=== PATIENT | female | born 1965 | race Caucasian/White ===

== ENCOUNTER 2019-12-13 10:00 | Outpatient (CLI) | payer MEDICARE, SELFPAY ==
--- NOTE | ~2019-12-13 | XR_ITS ---
XR knee RT 3V, XR knee LT 3V 12/13/2019 10:32 Indication: Knee pain Procedure: 3 views each knee Comparison: 04/09/2011 Findings: Mild osteoarthritis of the medial compartment bilaterally. No fracture, subluxation or disl ocation. No significant joint effusion. No radiopaque foreign bodies. Impression: 1: Mild osteoarthritis medial compartment bilaterally. Reviewed, dictated and finalized at location A. Impression: 1: Mild osteoarthritis medial compartment bilaterally. Impression: 1: Mild osteoarthritis medial compartment bilaterally.
== END 2019-12-13 10:01 | disposition home or self-care (01) ==
LOC: ANHIMG 10:09
PROVIDERS: PCP Internal Medicine; Visit Provider Internal Medicine
DX: M25.569 Pain in unspecified knee (principal); M17.0 Bilateral primary osteoarthritis of knee
CPT/HCPCS: 73562

== ENCOUNTER 2020-03-09 09:32 | Outpatient (CLI) | payer MEDICARE, SELFPAY ==
--- NOTE | ~2020-03-09 | MR_ITS ---
EXAMINATION: MR knee RT wo con DATE: 03/09/2020 11:13 INDICATION: Right knee pain and swelling TECHNIQUE: Magnetic resonance imaging (MRI) of the right knee was performed without intravenous contr ast. Sequences included coronal PD-weighted FSE, coronal PD-weighted FS FSE, sagittal T2-weighted FS E, sagittal PD-weighted FS FSE and axial PD weighted fat saturated FSE. COMPARISON: Right knee radiographs dated 12/13/2019 FINDINGS: Medial compartment: Medial extrusion of the medial meniscal body. Complex tear with oblique configuration all 3 planes ex tending from the inner free edge to the periphery of the posterior horn. There is partial thickness c artilage loss with relatively smooth chondral surface along much of the medial half of the medial tib ial plateau with prominent subarticular edema along the medial rim. Partial-thickness cartilage loss with chondral surface irregularity at the medial head of the anterior weightbearing medial femoral co ndyle. More severe cartilage loss in places reaching full/near full-thickness at the central to poste rior weightbearing medial femoral condyle with underlying irregular cortical contour and scattered jara barticular edema. Lateral compartment: Lateral meniscus is normal. Small region of partial-thickness chondral ulceration at the posterior we ightbearing lateral femoral condyle. Patellofemoral compartment: Deep chondral fissure along the medial side of the lateral patellar facet. Ligaments and tendons: Anterior and posterior cruciate ligaments are normal. The medial collateral ligament and fibular cecil ateral ligament complex are normal. The extensor mechanism is normal. The visualized medial and later al hamstring tendons as well as the iliotibial band are normal. Fluid: Small knee joint effusion. No loose osteochondral bodies identified. Moderate-sized Mathis's cyst jadon uring 4.0 x 2.2 x 1.4 cm. 7 mm ganglion cyst extending along the proximal myotendinous junction of th e lateral head of the gastrocnemius. Osseous/other: Bone alignment is normal. No fracture or pathologic marrow replacing process. IMPRESSION: 1. Complex tear of the posterior horn of the medial meniscus. 2. Tricompartmental osteoarthritis mild to moderate severity with high-grade chondromalacia in the me dial compartment and mild with moderate grade chondromalacia in the lateral and patellofemoral compar tments. 3. Likely reactive small knee joint effusion with moderate-sized Mathis's cyst an additional small dandy glion cyst at the proximal lateral head of the gastrocnemius. Reviewed, dictated and finalized at location A. IMPRESSION: 1. Complex tear of the posterior horn of the medial meniscus. 2. Tricompartmental osteoarthritis mild to moderate severity with high-grade ch ondromalacia in the medial compartment and mild with moderate grade chondromala mark in the lateral and patellofemoral compartments. 3. Likely reactive small knee joint effusion with moderate-sized Mathis's cyst a n additional small ganglion cyst at the proximal lateral head of the gastrocnem ius.
--- NOTE | ~2020-03-09 | MR_ITS ---
EXAMINATION: MR knee LT wo con DATE: 03/09/2020 11:13 INDICATION: Right knee pain TECHNIQUE: Magnetic resonance imaging (MRI) of the right knee was performed without intravenous contr ast. Sequences included coronal PD-weighted FSE, coronal PD-weighted FS FSE, sagittal T2-weighted FS E, sagittal PD-weighted FS FSE and axial PD weighted fat saturated FSE. COMPARISON: Right knee radiographs dated 12/13/2019 FINDINGS: Medial compartment: There is a tear along the free edge and inferior articular surface of small region of the body of the medial meniscus. Morphology is indeterminate, likely complex. Deep chondral ulceration and fissuring along the posterior weightbearing medial femoral condyle with small flat central subchondral osteoph yte and multiple small subarticular cysts. Tiny marginal osteophytes along the weightbearing medial f emoral condyle and medial tibial plateau. Lateral compartment: Complex tear along the inner third of the posterior horn of the lateral meniscus with additional like ly longitudinal horizontal tear extending to the cephalad articular surface along the inner third of the lateral meniscal body. Deep cartilage loss and fissuring with underlying subarticular edema and c ystic change at the central to posterior aspect of the lateral tibial plateau. Partial thickness jorge dral ulceration with mild irregularity to the underlying cortex at the posterior most weightbearing l ateral femoral condyle. Patellofemoral compartment: Cartilage loss along the patellar apical ridge with additional partial thickness cartilage loss and d eep fissuring with subarticular edema on either side at the medial and lateral patellar facets. Chond ral ulceration with more prominent subarticular cystic change at the central aspect of the trochlear groove and with mild subarticular edema at the inferior aspect of the medial trochlea. Ligaments and tendons: Anterior and posterior cruciate ligaments are normal. The medial collateral ligament and fibular cecil ateral ligament complex are normal. The extensor mechanism is normal. The visualized medial and later al hamstring tendons as well as the iliotibial band are normal. Fluid: Physiologic amount of fluid in the joint space. Small loose osteochondral body cephalad component of a small Mathis's cyst. Osseous/other: Bone alignment is normal. No fracture or pathologic marrow replacing process. Edema in the superficia l suprapatellar fat pad consistent with fat pad impingement syndrome. IMPRESSION: 1. Medial and lateral meniscal tears. 2. Mild tricompartmental osteoarthritis with regions of high-grade chondromalacia in all 3 compartmen ts. 3. Edema in the superficial suprapatellar fat pad which can be seen with fat pad impingement syndrome . 4. Small Mathis's cyst. Reviewed, dictated and finalized at location A. IMPRESSION: 1. Medial and lateral meniscal tears. 2. Mild tricompartmental osteoarthritis with regions of high-grade chondromalac ia in all 3 compartments. 3. Edema in the superficial suprapatellar fat pad which can be seen with fat pa d impingement syndrome. 4. Small Mathis's cyst.
== END 2020-03-09 09:33 | disposition home or self-care (01) ==
LOC: ANHIMG 09:33
PROVIDERS: PCP Internal Medicine; Visit Provider Internal Medicine
DX: M25.561 Pain in right knee (principal); M25.562 Pain in left knee; S83.281A Other tear of lateral meniscus, current injury, right knee, initial encounter; S83.241A Other tear of medial meniscus, current injury, right knee, initial encounter; M79.89 Other specified soft tissue disorders; M71.21 Synovial cyst of popliteal space [Baker], right knee; M25.461 Effusion, right knee
CPT/HCPCS: 73721

== ENCOUNTER 2020-06-04 09:01 | Outpatient (NON) | payer MEDICARE, SELFPAY ==
[2020-06-04 20:27] LABS: SARS-CoV-2 RNA PCR Negative
== END 2020-06-04 09:02 ==
PROVIDERS: PCP Internal Medicine; Visit Provider Internal Medicine
DX: R68.89 Other general symptoms and signs (principal); Z20.828 Contact with and (suspected) exposure to other viral communicable diseases
CPT/HCPCS: 87635; C9803; U0003

== ENCOUNTER 2020-06-06 15:17 | Outpatient (CLI) | payer MEDICARE, SELFPAY ==
--- NOTE | ~2020-06-06 | XR_ITS ---
XR chest 2V DATE: 06/06/2020 15:35 INDICATION: Fever, excessive burping. Acute upper respiratory infection. TECHNIQUE: PA and lateral views COMPARISON: 10/10/2018 2 view chest 10/10/2018 CT pulmonary scan FINDINGS: Moderate bilateral pulmonary hyperinflation. No pulmonary infiltrate or consolidation, pleu ral effusion or pulmonary vascular congestion or pneumothorax. Mild bilateral apical scarring is agai n noted. Normal heart size. No hilar or mediastinal enlargement. Moderate osteopenia. Levoscoliosis of the upper thoracic spine and dextroscoliosis of the lower thora cic spine. IMPRESSION: Moderate hyperinflation; no active cardiopulmonary disease or significant change since 10/10/2018 Reviewed, dictated and finalized at location A. IMPRESSION: Moderate hyperinflation; no active cardiopulmonary disease or signi ficant change since 10/10/2018
== END 2020-06-06 15:18 | disposition home or self-care (01) ==
LOC: ANHIMG 15:23
PROVIDERS: PCP Internal Medicine; Visit Provider Internal Medicine
DX: J06.9 Acute upper respiratory infection, unspecified (principal); R91.8 Other nonspecific abnormal finding of lung field
CPT/HCPCS: 71046

== ENCOUNTER → 2020-12-31 10:15 | Outpatient (CLI) | payer MEDICARE, SELFPAY ==
[2020-12-31 20:13] LABS: SARS-CoV-2 RNA PCR Positive
== END ==
PROVIDERS: PCP Internal Medicine; Visit Provider Internal Medicine
DX: U07.1 COVID-19 (principal); R68.89 Other general symptoms and signs
CPT/HCPCS: C9803; U0003; U0005

== ENCOUNTER 2021-01-07 11:34 | Outpatient (CLI) | payer MEDICARE, SELFPAY ==
--- NOTE | ~2021-01-07 | XR_ITS ---
EXAMINATION: XR chest 2V DATE: 01/07/2021 12:00 INDICATION: COVID-19 pneumonia. TECHNIQUE: Frontal and lateral views of the chest were obtained. COMPARISON: Chest 2 views 06/06/2020 FINDINGS: There is mild scarring at the lung apices. No pleural effusion or pneumothorax. The heart s ize is normal. IMPRESSION: 1. Stable mild scarring at the lung apices. Reviewed, dictated and finalized at location A.
== END 2021-01-07 11:35 | disposition home or self-care (01) ==
PROVIDERS: PCP Internal Medicine; Visit Provider Internal Medicine
DX: U07.1 COVID-19 (principal)
CPT/HCPCS: 71046

== ENCOUNTER 2021-03-02 11:51 | Outpatient (CLI) | payer MEDICARE, SELFPAY ==
--- NOTE | ~2021-03-02 | MR_ITS ---
EXAMINATION: MR lumbar spine wo con DATE: 03/02/2021 12:41 INDICATION: Lumbar radiculopathy. TECHNIQUE: Magnetic resonance imaging (MRI) of the lumbar spine was performed without intravenous con trast. Sequences included sagittal T2-weighted FSE, sagittal T2-weighted FS FSE, sagittal T1-weighted FSE, and axial T2-weighted FSE. COMPARISON: Lumbar spine MRI 12/23/2010 FINDINGS: Bone alignment is normal. Vertebral body heights and intervertebral disc heights are normal . The distal spinal cord signal intensity is normal. The conus medullaris is at L1-L2. The following disc levels are specifically discussed: L1-L2: The disc does not extend beyond the endplate margin. There is mild bilateral facet joint osteo arthritis. There is no neural foraminal stenosis. There is no central canal stenosis. L2-L3: The disc does not extend beyond the endplate margin. There is mild bilateral facet joint osteo arthritis. There is no neural foraminal stenosis. There is no central canal stenosis. L3-L4: The disc does not extend beyond the endplate margin. There is mild bilateral facet joint osteo arthritis. There is no neural foraminal stenosis. There is no central canal stenosis. L4-L5: The disc is bulging and has an annular fissure. There is mild lateral facet joint osteoarthrit is. There is mild bilateral neural foraminal stenosis. There is mild central canal stenosis. L5-S1: The disc does not extend beyond the endplate margin. There is mild bilateral facet joint osteo arthritis. There is no neural foraminal stenosis. There is no central canal stenosis. IMPRESSION: 1. Mild lumbar spondylosis, stable from 12/23/2010. Reviewed, dictated and finalized at location A.
== END 2021-03-02 11:52 | disposition home or self-care (01) ==
PROVIDERS: PCP Internal Medicine; Visit Provider Nurse Practitioner Family
DX: M54.16 Radiculopathy, lumbar region (principal); M47.816 Spondylosis without myelopathy or radiculopathy, lumbar region
CPT/HCPCS: 72148

== ENCOUNTER 2021-08-15 08:08 | Outpatient (CLI) | payer MEDICARE, SELFPAY ==
--- NOTE | ~2021-08-15 | MM_ITS ---
EXAMINATION: MM screening [facility] BI w irais HISTORY: Screening mammogram TECHNIQUE: Craniocaudal and mediolateral oblique 3-D tomosynthesis images were obtained and synthetic 2-D images were generated. Bilateral rotated lateral cc views. CAD analysis was submitted and interp reted. COMPARISON: 02/05/2016 bilateral screening mammogram BREAST PARENCHYMAL COMPOSITION: The breasts are heterogeneously dense, which may obscure small masses . FINDINGS: There is no evidence of suspicious mass, calcification, or architectural distortion to sugg est malignancy in either breast. There has been no suspicious interval change. IMPRESSION: 1. No mammographic evidence of malignancy. 2. Recommend routine screening mammography in one year. BI-RADS Category 1: Negative Reviewed, dictated and finalized at location A. [employer]ISH[employer]
== END 2021-08-15 08:09 | disposition home or self-care (01) ==
LOC: ANHIMG 08:11
PROVIDERS: PCP Internal Medicine; Visit Provider Obstetrics & Gynecology
DX: Z12.31 Encounter for screening mammogram for malignant neoplasm of breast (principal)
CPT/HCPCS: 77063; 77067

== ENCOUNTER 2022-02-25 10:07 | Outpatient (CLI) | payer MEDICARE, SELFPAY ==
--- NOTE | 2022-03-10 15:31 | WPDHOMESLEEP ---
Sleep Study - Home Unattended Date of Study: 02/25/22 Ordering Provider: Van Gonzales DO Interpreting Provider: Katarina Salinas DO Home Sleep Study Type: Apnea Link Air Height: 1.73 m Weight: 70.307 kg Body Mass Index: 23.6 Neck Circumference (inches): 17 [place]: 6 Reason for Sleep Study Unrefreshing sleep, daytime hypersomnia Sleep History The patient is a 56-year-old female with hyperlipidemia, coronary artery disease w/ stent, history of myocardial infarction, osteoporosis, chronic pain, seasonal allergies and history of tobacco abuse that had a sleep study ordered for evaluation of sleep apnea. The patient is currently disabled. She occasionally awakens from sleep short of breath. She occasionally awakens at night with heartburn, belching or cough. She constantly snores loud enough that others complain. She constantly has trouble sleeping when she has a cold. She denies waking up gasping for air throughout the night. She denies having breathing problems at night observed by herself or others. She occasionally sweats excessively at night. Rarely has heart palpitations or irregular heartbeats during the night. He occasionally falls asleep during the day but never while driving. She denies sleep paralysis and cataplexy. She rarely experiences vivid dreamlike scenes upon awakening or falling asleep. She occasionally has nightmares. She rarely remembers her dreams. She frequently has thoughts racing through her mind. She occasionally feels sad or depressed. She frequently has anxiety. She occasionally has muscular tension and occasionally notices parts of her body jerk. She occasionally kicks during the night. She frequently experiences crawling and aching feelings in her legs and frequent slightly has leg pain during the night. She rarely grinds her teeth during sleep but never awakens with morning jaw pain. She is constantly bothered by pain during the day and frequently awakened by pain during the night. He frequently wakes up feeling stiff in the morning. She frequently or achy muscles. She frequently wakes up with pain in the neck, spine or other joints. She goes to bed between 830 and 9:00 p.m. on weekdays and at 10:00 p.m. on weekends. It takes her 20 30 minutes to fall asleep at night. She wakes up twice throughout the night to use the restroom. He can take her up to 30 minutes to fall asleep. She wakes up between 6 and a.m. on both weekdays and weekends. She typically gets 4-6 hours of sleep per night. She will stay in bed for 1 hour after waking up in the morning. She currently lives with her . She does not consume any caffeinated beverages within 2 hours of bedtime. She does not engage in physical exercise before bedtime. She will watch television before falling asleep. She will occasionally take naps in the afternoon or the evening. She will drink 2 cups of caffeinated beverage per day. She will occasionally drink beer. She quit smoking cigarettes 10 years ago. She denies recreational drug use. [facility] Past Medical History Medical History Anxiety Arthritis Bilateral knee pain Coronary artery disease involving [place] coronary artery of [place] heart Degenerative arthritis of knee, bilateral Degenerative joint disease of knee Fatigue High cholesterol Hx of myocardial infarction Hypersomnolence Lateral meniscus tear Medial meniscus tear On fdc drug therapy Osteoporosis Other and unspecified hyperlipidemia Right knee DJD Right knee pain Seasonal allergies Vision abnormalities Weight gain Surgical History Surgical History H/O removal of cyst History of foot surgery bone spur History of heart artery stent Family History Family History Mother No problems noted. Sibling N
[2022-03-10 15:39] VITALS: BMI 23.6
== END 2022-02-26 12:54 | disposition home or self-care (01) ==
LOC: ANHCSM 10:08
PROVIDERS: PCP Internal Medicine; Visit Provider Internal Medicine
DX: G47.10 Hypersomnia, unspecified (principal); G47.33 Obstructive sleep apnea (adult) (pediatric)
CPT/HCPCS: 95806

== ENCOUNTER 2022-03-25 07:28 | Outpatient (CLI) | payer MEDICARE, SELFPAY ==
--- NOTE | 2022-04-18 17:20 | WPDSLEEPSTUD ---
Sleep Study Date of Study: 03/25/22 Ordering Provider: Van Gonzales DO Interpreting Physician: Katarina Salinas DO Sleep Study Type: CPAP Titration Height: 1.7 m Weight: 70.307 kg Body Mass Index: 24.3 Neck Circumference (inches): 17 [place]: 6 Reason for Sleep Study The patient had an HSAT on 02/25/2022 that showed an overall AHI of 31.9 with desaturation down to 84%.? This is consistent with?severe sleep apnea.??The patient had a KALPANA (central apnea index) of 11.9, with normal being less than 5. Sleep History The patient is a 56-year-old female with hyperlipidemia, coronary artery disease w/ stent, history of myocardial infarction, osteoporosis, chronic pain, seasonal allergies and history of tobacco abuse that had a sleep study ordered for evaluation of sleep apnea.? The patient is currently disabled.? She occasionally awakens from sleep short of breath.? She occasionally awakens at night with heartburn, belching or cough.? She constantly snores loud enough that others complain.? She constantly has trouble sleeping when she has a cold.? She denies waking up gasping for air throughout the night.? She denies having breathing problems at night observed by herself or others.? She occasionally sweats excessively at night.? Rarely has heart palpitations or irregular heartbeats during the night.? He occasionally falls asleep during the day but never while driving.? She denies sleep paralysis and cataplexy.? She rarely experiences vivid dreamlike scenes upon awakening or falling asleep.? She occasionally has nightmares.? She rarely remembers her dreams.? She frequently has thoughts racing through her mind.? She occasionally feels sad or depressed.? She frequently has anxiety.? She occasionally has muscular tension and occasionally notices parts of her body jerk.? She occasionally kicks during the night.? She frequently experiences crawling and aching feelings in her legs and frequent slightly has leg pain during the night.? She rarely grinds her teeth during sleep but never awakens with morning jaw pain.? She is constantly bothered by pain during the day and frequently awakened by pain during the night.? He frequently wakes up feeling stiff in the morning.? She frequently or achy muscles.? She frequently wakes up with pain in the neck, spine or other joints.? She goes to bed between 830 and 9:00 p.m. on weekdays and at 10:00 p.m. on weekends.? It takes her 20 30 minutes to fall asleep at night.? She wakes up twice throughout the night to use the restroom.? He can take her up to 30 minutes to fall asleep.? She wakes up between 6 and a.m. on both weekdays and weekends.? She typically gets 4-6 hours of sleep per night.? She will stay in bed for 1 hour after waking up in the morning.? She currently lives with her .? She does not consume any caffeinated beverages within 2 hours of bedtime.? She does not engage in physical exercise before bedtime.? She will watch television before falling asleep.? She will occasionally take naps in the afternoon or the evening.? She will drink 2 cups of caffeinated beverage per day.? She will occasionally drink beer.? She quit smoking cigarettes 10 years ago.? She denies recreational drug use. 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
[2022-04-18 23:06] VITALS: BMI 24.3
--- NOTE | 2022-08-01 12:22 | SLEEP ---
pt stated she had watched a youtube video on how to turn her machine up to 12cm I explained to her that it could increase the number of central events she could experience nightly. I also advised pt that she should return machine to md settings.
== END 2022-03-26 06:00 | disposition home or self-care (01) ==
LOC: ANHCSM 07:35
PROVIDERS: PCP Internal Medicine; Visit Provider Internal Medicine
DX: G47.30 Sleep apnea, unspecified (principal)
CPT/HCPCS: 95811

== ENCOUNTER 2022-04-10 13:25 | Outpatient (CLI) | payer MEDICARE, SELFPAY ==
--- NOTE | 2022-04-10 13:48 | ECHO_ITS ---
Patient Info Name: Lisbet Alejandro Age: 56 years : 1965 Gender: Female Ht: 68 in Wt: 190 lbs BSA: 2.05 m2 HR: 97 bpm BP: 179 / 88 mmHg Heart Rhythm: Sinus Rhythm Technical Quality: Fair Exam Date: 04/10/2022 2:07 PM Exam Location: [facility] Patient Status: Outpatient Admit Date: 04/10/2022 Staff Ordering Physician: Van Gonzales DO Clerical Methods Analyst: Adrianne Solitario RDCS Attending Provider: Van Gonzales DO Referring Physician: Janet ROUSSEAU; Exam Type: CA echo doppler color flow Study Info Indications G47.39 - OTHER SLEEP APNEA Complete two-dimensional, color flow and Doppler transthoracic echocardiogram is performed. Summary 1. Complete two-dimensional, color flow and Doppler transthoracic echocardiogram is performed. 2. Normal Echocardiogram. Left Ventricle Left ventricular chamber dimension is normal. Left ventricular systolic function is normal, estimated at 60-65%. The left ventricular diastolic function is normal. Right Ventricle Right ventricular chamber dimension is normal. Left Atria Left atrial chamber dimension is normal. Right Atria Right atrial chamber dimension is normal. Aortic Valve The aortic valve is normal. Pulmonic Valve The pulmonic valve is normal. Mitral Valve The mitral valve has normal leaflets. Tricuspid Valve The tricuspid valve leaflets are normal. Pericardium/Pleural The pericardium appears normal. Aorta The aortic root size at the sinus of Valsalva is normal. Left Ventricular Outflow Tract Name Value Normal LVOT 2D LVOT Diameter 2.0 cm LVOT Doppler LVOT Peak Gradient 4 mmHg LVOT Mean Gradient 2 mmHg LVOT VTI 24 cm LVOT VTI/AV VTI Ratio 0.9 LVOT Stroke Volume 73 ml LVOT CO 5.3 l/min LVOT CI 2.6 l/min/m2 Pulmonic Valve Name Value Normal RVOT Doppler RVOT Peak Gradient 3 mmHg PV Doppler PV Peak Gradient 4 mmHg Mitral Valve Name Value Normal MV Doppler MV Decel [place] 479 cm/s2 MV PHT 57 ms MV Area (PHT) 3.9 cm2 4.0-5.0 MV Diastolic Function MV E Peak Velocity 94 cm/s MV A Peak Velocity
== END 2022-04-10 13:26 | disposition home or self-care (01) ==
LOC: ANHCARD 13:37
PROVIDERS: PCP Internal Medicine; Visit Provider Internal Medicine
DX: G47.39 Other sleep apnea (principal); Z79.899 Other long term (current) drug therapy
CPT/HCPCS: 93306

== ENCOUNTER → 2023-01-22 11:21 | Outpatient (CLI) | payer MEDICARE, SELFPAY ==
--- NOTE | ~2023-01-22 | MM_ITS ---
EXAMINATION: MM screening [facility] BI w irais HISTORY: Screening mammogram TECHNIQUE: Craniocaudal and mediolateral oblique 3-D tomosynthesis images were obtained and synthetic 2-D images were generated. CAD analysis was submitted and interpreted. COMPARISON: 08/15/2021, 02/05/2016 BREAST PARENCHYMAL COMPOSITION: The breasts are heterogeneously dense, which may obscure small masses . FINDINGS: No suspicious mass, calcification, or architectural distortion are identified in either sina ast to suggest malignancy. There has been no suspicious interval change. IMPRESSION: 1. No mammographic evidence of malignancy. 2. Recommend routine screening mammography in one year. BI-RADS Category 1: Negative Reviewed, dictated and finalized at location A.
== END ==
PROVIDERS: PCP Internal Medicine; Visit Provider Obstetrics & Gynecology
DX: Z12.31 Encounter for screening mammogram for malignant neoplasm of breast (principal)
CPT/HCPCS: 77063; 77067

== ENCOUNTER 2024-02-12 09:53 | Outpatient (CLI) | payer MEDICARE, SELFPAY ==
--- NOTE | ~2024-02-12 | MM_ITS ---
EXAMINATION: MM screening [facility]ho[facility] BI w irais HISTORY: Screening mammogram TECHNIQUE: Craniocaudal and mediolateral oblique 3-D tomosynthesis images were obtained and synthetic 2-D images were generated. CAD analysis was submitted and interpreted. COMPARISON: January 22, 2023, August 15, 2021 bilateral screening mammogram examinations BREAST PARENCHYMAL COMPOSITION: The breasts are heterogeneously dense, which may obscure small masses . FINDINGS: There is no evidence of suspicious mass, calcification, or architectural distortion to sugg est malignancy in either breast. There has been no suspicious interval change. IMPRESSION: 1. No mammographic evidence of malignancy. 2. Recommend routine screening mammography in one year. BI-RADS Category 1: Negative Reviewed, dictated and finalized at location B.
== END 2024-02-12 09:54 ==
PROVIDERS: PCP Family Medicine; Visit Provider Family Medicine
DX: Z12.31 Encounter for screening mammogram for malignant neoplasm of breast (principal)
CPT/HCPCS: 77063; 77067

== ENCOUNTER 2024-06-03 10:10 | Outpatient (CLI) | payer MEDICARE, SELFPAY ==
--- NOTE | ~2024-06-03 | CT_ITS ---
CT Scan of the Chest without Contrast: Clinical Indication: Lung cancer screening, nicotine dependence Technique: Contiguous sections were acquired throughout the chest without intravenous contrast. Dose reduction technique was used on this scan by utilizing automated exposure control and iterative recon struction technique. The dose-length product (DLP) was 139.56 mGy-cm. Findings: There is no evidence of any significant mediastinal, hilar or axillary lymphadenopathy. There are ath erosclerotic ossifications of the aorta and coronary arteries. There is no evidence of pleural or pericardial effusion. The lungs are clear. No pulmonary nodules or infiltrates are noted. There is minimal biapical scarrin g. Images through the upper abdomen reveal no abnormalities. Impression: Lung RADS 1: Negative. 12 month follow-up screening CT advised. Reviewed, dictated and finalized at [facility]. Impression: Lung RADS 1: Negative. 12 month follow-up screening CT advised.
== END 2024-06-03 10:11 | disposition home or self-care (01) ==
PROVIDERS: PCP Family Medicine; Visit Provider Family Medicine
DX: Z12.2 Encounter for screening for malignant neoplasm of respiratory organs (principal); Z87.891 Personal history of nicotine dependence
CPT/HCPCS: 71271

== ENCOUNTER 2024-09-30 00:33 | Day surgery (SDC) | payer MEDICARE, SELFPAY ==
[2024-09-29 10:46] VITALS: BMI 29.7
[2024-09-30] VITALS (14 sets, daily range): BP systolic 122–164; BP diastolic 68–88; PULSE 73–94; RESP 11–20; TEMP 36.7; O2SAT 97–100; BMI 29.0
[2024-09-30 07:37] LABS: Basophils Percent Auto 0.9 % (0.2-1.2); Eosinophils Absolute Auto 0.1 K/mm3 (0-0.3); Eosinophils Percent Auto 1.9 % (0-4.4); Hematocrit 37.3 % (37.0-47.0); Hemoglobin 12.4 g/dL (12.0-15.0); Immature Granulocyte Absolute 0.01 K/mm3 (0.00-0.031); Immature Granulocyte Percent A 0.2 % (0-0.5); Lymphocytes Absolute Auto 1.64 K/mm3 (0.9-3.2); Lymphocytes Percent Auto 35.5 % (18.3-44.2); Mean Corpuscular HGB Conc 33.2 g/dl (32-36); Mean Corpuscular Hemoglobin 30.7 pg (26-34); Mean Corpuscular Volume 92.3 fl (80-100); Mean Platelet Volume 9.1 fl (7.4-10.4); Monocytes Absolute Auto 0.4 K/mm3 (0.1-0.6); Monocytes Percent Auto 7.8 % (2.6-8.5); Neutrophils Absolute Auto 2.5 K/mm3 (1.3-6.7); Neutrophils Percent Auto 53.7 % (45.5-73.1); Platelet Count Result 277 k/mm3 (150-375); Red Blood Count 4.04 M/mm3 (4.2-5.4); Red Cell Distribution Width 12.2 % (11.5-14.5); White Blood Count 4.6 K/mm3 (4.5-10.0)
[2024-09-30 08:11] LABS: Anion Gap 3 mmol/L (4-12); Blood Urea Nitrogen 11 mg/dL (7-17); Calcium 9.6 mg/dL (8.4-10.2); Carbon Dioxide 24 mmol/L (22-30); Chloride 110 mmol/L (98-107); Estimated CRCL calculation 66 ml/min; Estimated Glomerular Filt Rate > 60; Glucose 105 mg/dL (65-110); Potassium 3.9 mmol/L (3.4-5.0); Sodium 137 mmol/L (137-145)
--- NOTE | 2024-09-30 08:23 | P.SEDATION_ITS ---
Moderate Sedation Note-Pt Data Patient Data Allergies Allergy/AdvReac Type Severity Reaction Status Date / Time No Known Drug Allergies Allergy Mild no Verified 09/30/24 07:21 allergies Home Medications ?Medication ?Instructions ?Recorded ?Confirmed ?Type aspirin 81 mg tablet,delayed 81 mg PO DAILY 12/07/19 09/30/24 History release (Adult Low Dose Aspirin) multivitamin 1 tablet PO DAILY 12/07/19 09/29/24 History magnesium 200 mg tablet 200 mg PO DAILY 04/26/24 09/29/24 History pantoprazole 40 mg tablet,delayed See Rx Instructions .Route 05/03/24 09/30/24 Rx release .COMPLEX #180 tabs rosuvastatin 20 mg tablet 20 mg PO DAILY #90 tabs 05/03/24 09/29/24 Rx topiramate 50 mg tablet 50 mg PO DAILY #90 tabs 07/07/24 09/29/24 Rx topiramate 100 mg tablet 100 mg PO DAILY #90 tabs 07/13/24 09/29/24 Rx hydrocodone 5 mg-acetaminophen 325 1 tablet PO Q6H PRN pain #120 tabs 09/15/24 09/30/24 Rx mg tablet ezetimibe 10 mg tablet See Rx Instructions .Route 09/21/24 09/29/24 Rx .COMPLEX #90 tabs omega-3 acid ethyl esters 1 gram See Rx Instructions .Route 09/21/24 09/29/24 Rx capsule .COMPLEX #180 caps vitamin B complex 1 tablet PO DAILY 09/29/24 09/29/24 History Current Medications: Active Medications Sodium Chloride (Normal Saline Iv) 500 mls @ 100 mls/hr IV CONT .Q5H LUIZ Sedation/Anesthesia: No previous sedation/anesthesia problems (including family history). 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 Sibling Neuropathy Other Carcinoma of colon Family history of arthritis Family history of cardiovascular disease Family history of lung cancer Family history of throat cancer Hypertension Social History Social History Smoking packs per day: 1 Smoking cigarettes per day: 20.0 Years smoked: 8 Smoking pack-years: 8.00 Smoking status: Former smoker Tobacco type: cigarettes Second hand tobacco smoke exposure: No Smoking end date: 10/05/13 Alcohol intake: current Alcohol use details: occasionally 1-2 beer a few times/year Substance use: never Substance use type: does not use Last use: 10/05/2013 Do You Feel Safe in your Home?: Yes Lack of Transportation: No Lack of Food: Never True Current Housing: I Have Housing Concerned About Future Housing: No Difficulty Paying Gas/Electric Bills: No Currently Unemployed: No Education: Associate Degree Difficulty w/ Childcare or Family Care: No Living arrangements: with family Occupation/Education: unemployed Additional occupation/education comments: disabled Gender identity (if verbalized by the patient): Female Spiritual care concerns: No Mod Sed Physical Exam Physical Exam Pre Procedural Exam: Normal: Heart Rate and Heart Rhythm Hours since solid foods: 12 Hours since liquid intake: 12 Mallampati Classification: class II Internal Medicine - PN: Obj Da Vital Signs Vital Signs: Vital Signs - 24 hr 09/30/24 07:27 Temperature 36.7 C Pulse Rate 94 Respiratory Rate 16 Blood Pressure 154/77 H Pulse Oximetry 97 Oxygen Delivery Room Air Meds/Results Medications: Active Medications Generic Name Dose Route Start Last Admin Trade Name Freq PRN Reason Stop Dose Admin Sodium Chloride 500 mls @ 100 mls/hr 09/30/24 07:00 Normal Saline Iv IV CONT .Q5H LUIZ Labs 09/30/24 07:33 09/30/24 07:50 Labs: Laboratory Results - last 24 hr 09/30/24 09/30/24 07:33 07:50 WBC 4.6 RBC 4.04 L Hgb 12.4 Hct 37.3 MCV 92.3 MCH 30.7 MCHC 33.2 RDW 12.2 Plt Count 277 MPV 9.1 Immature Gran % (Auto) 0.2 Neut % (Auto) 53.7 Lymph % (Auto) 35.5 [place] % (Auto) 7.8 Eos % (Auto) 1.9 Baso % (Auto) 0.9 Lymph # (Auto) 1.64 [place] # (Auto) 0.4 Eos # (Auto) 0.1 Baso # (Auto) 0.0 Abs Immat Gran (auto) 0.01 Absolute Neuts (auto) 2.5 Absolute Nucleated RBC 0.000 Nucleated RBC % 0.0 Sodium 137 Potassium 3.9 Chloride 110 H Carbon Dioxide 24 Anion Gap 3 L BUN 11 Creatinine 0.90 Estim Creat Clear Calc 66 Estimated GFR > 60 Glucose 105 Calcium 9.6 ASA Classification/Sedation ASA Classification/Sedation ASA Class: III Emergent: No Risks: Risks, benefits and alternatives explained and patient/family accepted plan for sedation. Patient re-evaluated immediately prior to sedation.
--- NOTE | 2024-09-30 08:23 | WPDHPUPDATE1 ---
History and Physical Update Update Date/Time: 09/30/24 08:23 History and Physical has been reviewed, including an updated exam of the patient. There are NO changes in the patient's condition. Risks, benefits, and alternatives have been discussed and questions answered. Patient agrees to proceed with procedure.
--- NOTE | 2024-09-30 10:47 | P.PCNCC_ITS ---
Cardiac Cath Procedure Note Date of procedure:: 09/30/24 Performing physician:: CATHETERIZATION LABORATORY REPORT Procedure Date: 09/30/2024 Referring Physician: Dr. Reddy Anesthesia: Versed and Fentanyl were ordered and given in my presence at 0840, procedure ended at 0853. Supervision of nurse, Jovi Grey monitored moderate sedation with 2mg Versed and 100mcg Fentanyl was provided for 13 minutes. Pre-op Diagnosis: Angina Post-op Diagnosis: Angina Procedure(s): Left heart catheterization with coronary angiography Access Site: Right radial artery Brief History and Clinical Indications: All risks, benefits and alternatives to left heart catheterization with or without percutaneous coronary intervention was discussed at length with the patient. Risk of complications including but not limited to bleeding, infection, arrhythmia, stroke, worsening kidney function, blood loss, groin hematoma, limb loss, emergency coronary artery bypass grafting, and even were discussed with the patient and all questions were answered. The patient understood and wished to proceed. Time out called, patient name, date of , medical record number, allergies, procedure performed, identify Knot Saw Operator, patient and staff member concurred with accurate data, procedure carried on. Findings: LEFT HEART CATHETERIZATION FINDINGS: 1. Left main: The left main coronary artery is widely patent without any significant obstructive disease. 2. Left anterior descending: The LAD and the diagonal branches have mild luminal irregularities without any significant obstructive angiographic disease. The system also provides [id number]-[id number] collaterals. 3. Left circumflex: The left circumflex artery and the main marginal branches have mild coronary artery disease without any significant obstructive angiographic disease. The system provides qqre-uq-gtqsi collaterals. 4. Right coronary artery: The RCA is a dominant vessel that is occluded at the distal part of a previously placed stent. There was good left to right collaterals. 5. Left ventricle: A. End-diastolic pressure 21 mmHg. B. LV gram deferred. C. No significant gradient across aortic valve on catheter pullback. 6. Opening AO pressure 140/85 and closing AO pressure 139/75 Description of Procedure: Informed consent signed and placed in the chart. Patient transferred to optical lab technician room. Prepped and draped in usual sterile fashion. 2% lidocaine injected subcutaneously in right wrist area. 22-gauge venipuncture catheter used to access the right radial artery with the Seldinger technique. 6-FR slender sheath placed in right radial artery. Nitroglycerin 200mcg, Verapamil 2.5mg, and Heparin 5000U was given intraarterial through the sheath. J wire advanced under fluoroscopy 5F TIG diagnostic catheter engaged Left Main Coronary Artery. 5F TIG diagnostic catheter engaged Right Coronary Artery Multiple orthogonal angiogram obtained and reviewed 5F Pigtail diagnostic catheter crossed aortic valve to obtain LVEDP, LV angiogram deferred. Hemostasis was achieved by application of TR band. 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 Post Operative Condition: Stable No significant blood loss Disposition: Home Plan: Continue aggressive risk factor modification. Continue aggressive medical management. Follow-up with Dr. Barry Muse Interventional Cardiology
--- OUTSIDE RECORDS SUMMARY | 2024-10-07 01:41 | XMS_ITS | Data Portability ---
Author Organization [facility] [place], Main Office Address [address] [place] [address] Care Team Providers Care District Fire Chief Name Role Phone MELISSA BONILLA Primary Care Provider [phone] ANALI ROONEY Referring Provider Assessment Encounter Date Assessment Date Assessment LastModified by Organization Details LastModified Time 10/28/2023 10/28/2023 Impression: Patient has moderately severe medial compartment osteoarthritis the right knee. She is content with periodic cortisone shots which have been helping her. She would like another cortisone shot today. Risk of side effects including risk of infection discussed. After ChloraPrep prep, 20 mg of Kenalog and 4 cc of 0.5% ropivacaine were injected into the right knee without difficulty. She can have another cortisone shot in 3 months if desired. 30 minutes were spent total care this patient more than half the time spent in rcez-to-eflv care. [email or web address] Not available 11/01/2023 16:03:59 Plan of Treatment Reminders Order Date Submit Date Provider Last Modified By Organization Details Last Modified Time Details Appointments None recorded. Lab None recorded. Referral None recorded. Procedures injection/a spiration joint/bursa (PROC) - in office procedure, administere d by provider 2023 024 [email or web address] In-Office Order, Internal Use Only DO Not Attach Compendium DO Not Attach Compendium, Do Not Delete/merge, [id number] 09:35:40 Surgeries None recorded. Imaging None recorded. Medication Orders Kenalog 10 mg/mL suspension for injection 2023 024 [email or web address] [facility] [address] [facility], [place], [address], 16:34:01 ropivacaine (PF) 5 mg/mL (0.5 %) injection solution 2023 024 [email or web address] [facility] [address] [facility], [place], [address], 4 16:34:01 Patient TargetsNo targets recorded. Patient InstructionsNo instructions recorded. Reason for Referral None Reported. Results Created Date Observation Date Name Description Value Unit Range Abnormal Flag Note LastModifiedBy Organization Detail LastModifiedTime 02/18/20 22 XR, foot, 3 or more view No observ ation record ed. [id number] [facility] [place] [address] [place] [address], [phone], 12/04/2022 01:01:20 02/18/20 22 02/17/2022 XR, foot, 3 or more view No observ ation record ed. [id number] [facility] [place] [address] [place] [address], [phone], 12/04/2022 01:01:20 Result Notes None recorded. Problems Name Problem SNOMED Code Status Onset Date Resolution Date Notes Provider Name and Address Organization Details Recorded Time Bilateral plantar fasciitis 4130099964663 9108 Active 2021 Not Available [facility] 3 01:00:06 Pain of right knee joint 4474315393971 00 Active 2023 Tisha Wetzel CMA [facility], [facility] [employer] [facility] 4 09:33:53 Problem Notes None recorded. Procedures Surgical History Date Name Laterality Status Provider Name and Address Organization Details Recorded Time 4 Stent completed Tisha Wetzel CMA [facility] 10/28/2023 10:34:05 Foot Surgery completed Not Available [facility] 12/04/2022 00:59:11 Imaging Results Imaging Date Name Status LastModified by Organiz ation Details LastModified Time 02/17/2022 XR, foot, 3 or more view completed [id number] [facility] [place] [address] [place], [address], 12/04/2022 01:01:20 02/17/2022 XR, foot, 3 or more view completed [id number] [facility] [place] [address] [place], [address], 12/04/2022 01:01:20 Procedure Notes None recorded. Medical Equipment None Reported. Medications Name Sig Start Date Stop Date Status Note LastModified by Organization Details LastModified Time neomycin-po lymyxin-hyd rocort 3.5 mg/mL-10,00 0 unit/mL-1 % ear solution INSTILL 4 DROPS INTO EACH EAR EVERY 8 HOURS FOR 10 DAYS active Not Available Not Available No t Available hydrocodone 5 mg-acetamin ophen 325 mg tablet TAKE 1 TABLET BY MOUTH EVERY 6 HOURS NEEDED FOR PAIN active Not Available Not Available No t Available fluticasone propionate 0.05 % topical cream active Not Available Not Available Not Available meloxicam 15 mg tablet TAKE 1 TABLET BY MOUTH DAILY active Not Available Not Available No t Available prednisone 20 mg tablet TAKE 1 TABLET BY MOUTH ONCE DAILY active Not Available Not Available No t Available alprazolam 0.25 mg tablet TAKE ONE TABLET BY MOUTH ONE HOUR BEFORE MRI ONE HALF HOUR BEFORE MRI AND RIGHT BEFORE MRI (IF NEEDED) 10/28 completed Not Available Not Available Not Available oxycodone-a cetaminophe n 10 mg-325 mg tablet TAKE 1 TABLET BY MOUTH EVERY 6 HOURS NEEDED FOR PAIN active Not Available Not Available No t Available Kenalog 10 mg/mL suspension for injection in office procedure , administe red by provider 2023 active [facility]: 0003- [phone]- 20 Not Available Not Available Not Available pantoprazol e 40 mg tablet,eleanor yed release TAKE 1 TABLET BY MOUTH EVERY MORNING active Not Available Not Available No t Available gabapentin 300 mg capsule TAKE 1 CAPSULE BY MOUTH EVERY DAY AT BEDTIME active Not Available Not Available No t Available morphine ER 15 mg tablet,exte nded release TAKE 1 TABLET BY MOUTH EVERY 12 HOURS active Not Available Not Available No t Available gabapentin 100 mg capsule TAKE 1 CAPSULE BY MOUTH EVERY DAY AT BEDTIME active Not Available Not Available No t Available fluticasone propionate 50 mcg/actuati on nasal spray,suspe nsion USE 2 SPRAY(S) IN EACH NOSTRIL ONCE DAILY active Not Available Not Available No t Available doxycycline hyclate 100 mg tablet TAKE 1 TABLET BY MOUTH TWICE DAILY FOR 10 DAYS 10/28 completed Not Available Not Available Not Available amoxicillin 875 mg-potassiu m clavulanate 125 mg tablet TAKE 1 TABLET BY MOUTH TWICE DAILY 10/28 completed Not Available Not Available Not Available ezetimibe 10 mg tablet TAKE 1 TABLET BY MOUTH DAILY active Not Available Not Available No t Available rosuvastati n 20 mg tablet TAKE 1 TABLET BY MOUTH DAILY active Not Available Not Available No t Available rosuvastati n 40 mg tablet TAKE ONE-HALF TABLET BY MOUTH ONCE DAILY. active Not Available Not Available No t Available omega-3 acid ethyl esters 1 gram capsule TAKE 1 CAPSULE BY MOUTH TWICE DAILY active Not Available Not Available No t Available aspirin 2021 active Not Available Not Available Not Avai lable B Complex 10/28 completed Not Available Not Available Not Available Percocet 2021 active Not Available Not Available Not Avai lable multivitami n 2021 active Not Available Not Available Not Avai lable Advair HFA 230 mcg-21 mcg/actuati on aerosol inhaler INHALE 2 PUFFS BY MOUTH EVERY 12 HOURS 10/28 completed Not Available Not Available Not Available ropivacaine (PF) 5 mg/mL (0.5 %) injection solution in office procedure , administe red by provider 2023 active [facility] [phone] -[phone] Not Available Not Available Not Available Nucynta ER 50 mg tablet,exte nded release TAKE 1 TABLET BY MOUTH EVERY 12 HOURS active Not Available Not Available No t Available Narcan 4 mg/actuatio n nasal spray USE DIRECTED IN CASE OF OPIOID EMERGENCY active Not Available Not Available No t Available Xtampza ER 9 mg capsule sprinkle TAKE 1 CAPSULE BY MOUTH EVERY 12 HOURS FOR 15 DAYS active Not Available Not Available No t Available Vitals Date Recorded Body mass index (BMI) Body height Heart rate Body weight Systolic blood pressure Diastolic blood pressure Provider Name and Address Organization Details Last Updated DateTime 2 28.9 kg/m2 172.72 cm 94 /min 07796.5 5 g 182 mm[Hg] 117 mm[Hg] Not Available [facility] 00:59:22 Date Recorded Body height Heart rate Systolic blood pressure Diastolic blood pressure Provider Name and Address Organization Details Last Updated DateTime 02/17/2022 172.72 cm 95 /min 179 mm[Hg] 108 mm[Hg] Not Available [facility] 12/04/2022 00:59:22 Date Recorded Body height Body mass index (BMI) Body weight Provider Name and Address Organization Details Last Updated DateTime 10/28/2023 170.18 cm 30.1 kg/m2 78702.74 g Tati Irene Rosalind [facility] 10/28/2023 10:27:10 Social History Question Answer Notes LastModified by [employer] ion Details LastModified Time Tobacco Smoking Status Never Smoker SHAYNA Mac, [facility] 10/28/2023 10:33:47 What Is Your Level Of Alcohol Consumption? Occasional [id number] Information not available 12/04/2022 What Is Your Level Of Caffeine Consumption? Occasional [id number] Information not available 12/04/2022 What Was The Date Of Your Most Recent Tobacco Screening? 02/03/2022 [id number] Information not available 12/04/2022 Have You Ever Been Counseled For Unhealthy Alcohol Use? No [id number] Information not available 12/04/2022 Do You Use Any Illicit Or Recreational Drugs? No [id number] Information not available 12/04/2022 Has Tobacco Cessation Counseling Been Provided? No [id number] Information not available 12/04/2022 Do You Or Have You Ever Used Any Other Forms Of Tobacco Or Nicotine? No [id number] Information not available 12/04/2022 Sex: Unknown Functional Status None recorded. Mental Status None recorded. Family History Relationship Description Onset Age of this Age Resolved Age Notes LastModified by Organization Details LastModified Time Father No current problems or disability [email or web address] Not available 10/28 10:33:14 Mother No current problems or disability [email or web address] Not available 10/28 10:33:14 Medical History Condition Response ARTHRITIS Y HEART DISEASE/HEART PROBLEMS Y OSTEOPOROSIS Y BACK / NECK PROBLEMS Y HIGH CHOLESTEROL / HYPERLIPIDEMIA Y Gynecological HistoryNo gynecological history recorded. Obstetrics History GPAL:G 0 P 0 0 0 0 Past Encounters Encounter ID Performer Location Encounter Start Date Encounter Closed Date Diagnosis/Indication Diagnosis SNOMED-CT Code Diagnosis ICD10 Code [id number] _[facility]_ DEFAULT_1 _1 , 02/03/2022 00:00:00 02/17/2022 15:17:54 [id number] _[facility]_ DEFAULT_1 _1 , 02/17/2022 00:00:00 02/17/2022 15:13:41 [id number] Escobar Hernandez MD [facility] [employer] [facility] [facility] [place] [place] [address] [facility] [facility] [address] [place] [address] 10/28/2023 08:43:15 11/02/2023 11:34:25 Pain of right knee joint 6087447496 00842 M25.561 Health Concerns Section Related Observation LastModified by Organization Detai ls LastModified Time None Recorded Concern Status LastModified by Organization Details LastModified Time None Recorded Advance Directives Directive None Recorded Payers Encounter Date Sequence Insurance Name Policy Number Policy Zurita Covered Member ID Zurita Member ID Guarantor Name 10/28/2023 1 [employer] (MEDICARE REPLACEMENT/A DVANTAGE - HMO) Lisbet Alejandro [id number] Lisbet Alejandro Notes Date Note Type Note Provider Name and Address Organization Details Recorded Time 10/28/2023 text/html Patient is a 58-year-old female referred by Dr. Gonzlaes for evaluation of her right knee. She has been seen Dr. Rooney who recommended that she see me. She has been getting periodic cortisone shots in the right knee. Her last injection was 3 months ago on 07/29/2023 that was helpful. She has moderately severe medial compartment osteoarthritis the right knee. I reviewed her x-rays from 07/29/[address] Sen office. She has narrowing of the medial compartment joint space to about 2 mm with sclerosis the medial tibial plateau. Incidental note is made of narrowing of the lateral compartment joint space left knee to about 3 mm. Patient has history of coronary artery stent 2013. She takes wbcd-kws-hqydtbd strength Motrin when needed. She uses hydrocodone 5/325 mg on average 2 or 3 tablets per day she has been using this for the last year. She used to take larger doses of Percocet. She takes these for chronic back pain for the past 10 years which she has had due to a spine injury. She has a history of bilateral pubic ramus fractures at age 15. Escobar Hernandez MD [address] [place] [address], [place] [address], [place], [address], [place] [facility] [place] [employer] [facility] 11/01/2023 16:04:15 OBGyn Episode No OBEpisode recorded.
--- OUTSIDE RECORDS SUMMARY | 2024-10-07 01:41 | XMS_ITS | Encounter Summary ---
Author Organization [facility] - [facility] Address [address] [place] [address]. [place] [address] [place] [address] Care Team Providers Care Tool Analyst Name Role Phone Dion Greene MD Primary Care Provider [phone] Encounter Details Date Type Department Care Team (Late st Contact Info) Description 02/20/[address] [facility] [place] [address] Huber De Jesus MD [address] [place] [address] [place] [address] Social History Tobacco Use Types Packs/Day Years Used Date Smoking Tobacco: Never Assessed Comments Unknown Sex and Gender Information Value Date Recorded Sex Assigned at Not on file Legal Sex Female 4:28 PM CDT Gender Identity Not on file Sexual Orientation Not on file documented as of this encounter Plan of Treatment Not on file documented as of this encounter Visit Diagnoses Diagnosis Other chest pain documented in this encounter Care Teams Tool Analyst Relationship Specialty Start Date End Date Dion Greene MD PCP - General 02/20/12 documented as of this encounter
--- OUTSIDE RECORDS SUMMARY | 2024-10-07 01:41 | XMS_ITS | Clinical Summary ---
Author Organization [facility] Address [address] [place] [address]. [place], [place] [address] [place] [address] Care Team Providers Care Range Conservationist Name Role Phone Dion Greene MD Primary Care Provider [phone] Social History Tobacco Use Types Packs/Day Years Used Date Smoking Tobacco: Never Assessed Comments Unknown Sex and Gender Information Value Date Recorded Sex Assigned at Not on file Legal Sex Female 4:28 PM CDT Gender Identity Not on file Sexual Orientation Not on file Plan of Treatment Health Maintenance Due Date Last Done Comments Cervical Cancer Screening Pa p Smear (Age 30 to 64) Every 3 Years 1963 Colorectal Cancer Screening Colonoscopy (10 Years) 1963 Annual Physical 1966 Hepatitis C 1981 DTaP, Tdap and Td Vaccines ( 1 - Tdap) 1982 Cervical Cancer Screening Pa p with HPV Testing (Age 30 to 64) Every 5 Years 1993 Cervical Cancer Screening with HPV 1993 Mammogram Screening 2003 Zoster Vaccines (1 of 2) 2013 COVID-19 Vaccine (2023-2 5 season) 2024 Influenza Adult (#1) 2024 RSV Immunization or 60+ Years (1 - 1-dose 75+ series) 2038 Meningococcal Vaccine Aged Out No [place] ben eligible based on patient's age to complete this topic Pneumococcal Vaccine: Pediat rics (0 to 5 Years) and At-Risk Patients (6 to 64 Years) Aged Out No longer eligible b ased on patient's age to complete this topic RSV Immunizations Under 20 Months Aged Out No longer eligible based on patient's age to complete this topic Care Teams Range Conservationist Relationship Specialty Start Date End Date Dion Greene MD [facility] - General 02/20/12
--- OUTSIDE RECORDS SUMMARY | 2024-10-07 01:41 | XMS_ITS | Data Portability ---
Author Organization [facility] [place] Address [address] [place] [address] Care Team Providers Care Boilermaker Fitter Name Role Phone MELISSA BONILLA Primary Care Provider Assessment Encounter Date Assessment Date Assessment LastModified by Organization Details LastModified Time 01/07/2024 01/07/2024 Annual gynecological exam performed. Patient will come back in a year unless there are new symptoms. [email or web address] Not available 01/07/2024 13:09:26 Plan of Treatment Reminders Order Date Submit Date Provider Last Modified By Organization Details Last Modified Time Details Appointments None record ed. Lab None record ed. Referral None record ed. Procedures None record ed. Surgeries None record ed. Imaging None record ed. Medication Orders None record ed. Patient TargetsNo targets recorded. Patient InstructionsNo instructions recorded. Reason for Referral None Reported. Results Created Date Observation Date Name Description Value Unit Range Abnormal Flag Note LastModifiedBy Organization Detail LastModifiedTime 01/07/20 24 01/07/2024 IMAGE GUIDE D PAP AND HPV REGAR DLESS image guided Pap, HPV regardless of Pap result SEE RESULT S BELOW CASE REPOR T: Cytol ogy Gynec ologi nancy Repor t Case: [id number] Autho tye g Provi fidelina: Karyna Sullivan MD Colle cted: 01/06 1735 Order ing Locat ion: [place] [facility] Recei conor: 01/07 0814 First Scree n: Jillian Fuentes h, CT Speci men: Scree anjel Pap - Image d, Cervi x STATE MENT OF ADEQU ACY: Satis facto ry for evalu ation Trans forma tion zone compo nent prese nt FINAL DIAGN OSIS: Negat yonatan for Intra epith elial Lesio n or Stanley nava (NIL) . Atrop hy prese nt. Elect fidencio hall abeba d by Jillian Fuentes, CT on 024 at 9:15 AM ----- ----- ----- ----- ----- ----- ----- ----- ----- ----- ----- ----- ----- ----- ----- ----- ----- ---- HPV RESUL TS: HPV mRNA E6/E7 : No HPV mRNA Detec kaylen NOTE: This high risk HPV mRNA assay detec ts fourt een high- risk HPV types (16, 18, 31, 33, 35, 39, 45, 51, 52, 56, 58, 59, 66, 68) witho ut diffe renti ation . COMME NT: This speci men was revie wed by a Cytot echno logis t and/o r Patho logis t (as indic ated in this repor t) after evalu ation using the Thinp rep Imagi ng Syste m. CLINI NANCY INFOR MATIO N: Menst rual Statu s: LMP (if appli cable ): 010 Clini nancy Histo ry/Pr eviou s Pap: Type of Neopl vamsi (if appli cable ): Signi fican t Clini nancy Findi ngs: Other Histo ry: Hormo seamus (if appli cable ): PAP EDUCA CHARLES L NOTE: The Pap Test is a scree anjel test with an inher ent false negat yonatan rate. Liqui d-bas ed sampl ing may decre ase, but will not elimi esthela, false negat yonatan resul ts. A negat yonatan resul t does not precl ude the prese nce and/o r devel opmen t of disea se, since the prese nce of abnor mal cells in the sampl e depen ds on the locat ion of the lesio n and sampl ing techn ique. Heydi nued regul ar scree anjel is the best metho d of jacqui r preve ntion . If repor kaylen cytol ogic findi ng do not corre late with physi nancy and/o r histo rical findi ngs, furth er inves tigat ion is recom krunal d, as clini tam harrell nted. Not Available [facility] (Lab) [address], [place], [address], 01/11/2024 10:18:32 Result Notes None recorded. Problems Name Problem SNOMED Code Status Onset Date Resolution Date Notes Provider Name and Address Organization Details Recorded Time Arthritis 8725971 Active 2023 Jeanine Yu [facility] 4 13:16:25 Intervertebra l disc prolapse 47144318 Active 2023 Jeanine Yu [facility] 4 13:26:21 Osteopenia 214986027 Active 2023 Jeanine Yu [facility] 4 13:26:30 Hypercholeste rolemia 61571637 Active 2023 Jeaninesandra Yu [facility] 4 13:26:46 Problem Notes None recorded. Procedures Surgical History Date Name Laterality Status Provider Name and Address Organization Details Recorded Time 4 Date of Last Pap Smear completed Jeaninesandra Yu [facility] 01/07/2024 13:31:09 3 Date of [facility] 13:28:09 5 [facility]24 13:23:54 1 Tubal Ligation completed [facility] 01/07/2024 13:23:37 0 [facility] 01/07/2024 13:21:21 Imaging Results None recorded. Procedure Notes None recorded. Medical Equipment None Reported. Allergies No known drug allergies Medications Name Sig Start Date Stop Date Status Note LastModified by Organization Details LastModified Time neomycin-po lymyxin-hyd rocort 3.5 mg/mL-10,00 0 unit/mL-1 % ear solution INSTILL 4 DROPS INTO EACH EAR EVERY 8 HOURS FOR 10 DAYS 01/06 completed Not Available Not Available Not Available hydrocodone 5 mg-acetamin ophen 325 mg tablet TAKE 1 TABLET BY MOUTH EVERY 6 HOURS NEEDED FOR PAIN active Not Available Not Available No t Available meloxicam 15 mg tablet TAKE 1 TABLET BY MOUTH DAILY active Not Available Not Available No t Available prednisone 20 mg tablet TAKE 1 TABLET BY MOUTH ONCE DAILY 01/06 completed Not Available Not Available Not Available oxycodone-a cetaminophe n 10 mg-325 mg tablet TAKE 1 TABLET BY MOUTH EVERY 6 HOURS NEEDED FOR PAIN 01/06 completed Not Available Not Available Not Available pantoprazol e 40 mg tablet,eleanor yed release TAKE 1 TABLET BY MOUTH EVERY 12 HOURS active Not Available Not Available No t Available Acetaminoph en-Hydrocod one 167 mg-2.5 mg/5 mL oral elixir 01/06 completed Not Available Not Available Not Available gabapentin 300 mg capsule TAKE 1 CAPSULE BY MOUTH EVERY DAY AT BEDTIME active Not Available Not Available No t Available fluticasone propionate 50 mcg/actuati on nasal spray,suspe nsion USE 2 SPRAY(S) IN EACH NOSTRIL ONCE DAILY active Not Available Not Available No t Available doxycycline hyclate 100 mg tablet TAKE 1 TABLET BY MOUTH TWICE DAILY FOR 10 DAYS 01/06 completed Not Available Not Available Not Available amoxicillin 875 mg-potassiu m clavulanate 125 mg tablet TAKE 1 TABLET BY MOUTH TWICE DAILY 01/06 completed Not Available Not Available Not Available Adult Aspirin 81 mg chewable tablet active Not Available Not Available Not Available ezetimibe 10 mg tablet TAKE 1 TABLET BY MOUTH ONCE DAILY active Not Available Not Available No t Available ciprofloxac in 0.3 %-dexametha sone 0.1 % ear drops,suspe nsion INSTILL 4 DROPS INTO EACH EAR EVERY 12 HOURS FOR 7 DAYS 01/06 completed Not Available Not Available Not Available rosuvastati n 20 mg tablet TAKE 1 TABLET BY MOUTH ONCE DAILY active Not Available Not Available No t Available omega-3 acid ethyl esters 1 gram capsule TAKE 1 CAPSULE BY MOUTH TWICE DAILY active Not Available Not Available No t Available Adult Multi plus Oelrichs-3 active Not Available Not Available Not Available 24HR Allergy Relief 5 mg tablet active Not Available Not Available Not Available Zepbound 15 mg/0.5 mL subcutaneou s pen injector Inject 15 mg every week by subcutane ous route. active Not Available Not Available No t Available Vitals Date Recorded Body height Body mass index (BMI) Body weight Systolic blood pressure Diastolic blood pressure Provider Name and Address Organization Details Last Updated DateTime 01/07/2024 168.91 cm 30.7 kg/m2 84413.33 g 166 mm[Hg] 86 mm[Hg] Jeanine Yu [facility] 13:10:35 Social History Question Answer Notes LastModified by Organizat ion Details LastModified Time Tobacco Smoking Status Never Smoker Jeanine Yu [facility], [facility] 01/07/2024 13:20:47 What Is Your Level Of Alcohol Consumption? Occasional [email or web address] Information not available 01/07/2024 How Many Years Have You Consumed Alcohol? 30 [email or web address] Information not available 01/07/2024 Are You Blind Or Do You Have Difficulty Seeing? No Information n ot available 01/07/2024 What Is Your Level Of Caffeine Consumption? Moderate [email or web address] Information not available 01/07/2024 In The 14 Days Before Symptom Onset, Have You Had Close Contact With A Laboratory-confirm ed COVID-19 While That Case Was Ill? No [email or web address] Information n ot available 01/07/2024 In The 14 Days Before Symptom Onset, Have You Had Close Contact With A Person Who Is Under Investigation For COVID-19 While That Person Was Ill? No [email or web address] Information not available 01/07/2024 Have You Been To An Area Known To Be High Risk For COVID-19? No [email or web address] Information not available 01/07/2024 Are You Deaf Or Do You Have Serious Difficulty Hearing? No Information not available 01/07/2024 What Type Of Diet Are You Following? REGULAR [email or web address] Information n ot available 01/07/2024 What Is The Highest Grade Or Level Of School You Have Completed Or The Highest Degree You Have Received? 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 Yes [email or web address] Information not available 01/07/2024 Have You Ever Been Counseled For Unhealthy Alcohol Use? No [email or web address] Information not available 01/07/2024 Do You Use Protection During Sex? No Information not available 01/07/2024 Do You Use Your Seat Belt Or Car Seat Routinely? Yes [email or web address] Information not available 01/07/2024 Do You Have Smoke And Carbon Monoxide Detectors In Your Home? Yes [email or web address] Information not available 01/07/2024 How Much Tobacco Do You Smoke? No [email or web address] Information not available 01/07/2024 Do You Feel Stressed (tense, Restless, Nervous, Or Anxious, Or Unable To Sleep At Night)? [id number] [email or web address] Information not available 01/07/2024 Do You Use Any Illicit Or Recreational Drugs? No Information not available 01/07/2024 Do You Use Sunscreen Routinely? Yes [email or web address] Information not available 01/07/2024 Has Tobacco Cessation Counseling Been Provided? No Information not available 01/07/2024 Have You Used IV Drugs? No [email or web address] Information not available 01/07/2024 Do You Or Have You Ever Used Any Other Forms Of Tobacco Or Nicotine? No [email or web address] Information not available 01/07/2024 Sex: Unknown Functional Status Question Answer Note LastModified by Organizat ion Details LastModified Time Do you have difficulty walking or climbing stairs? No [email or web address] Information not available 01/07/2024 Are you able to walk? YESWOREST [email or web address] Information not available 01/07/2024 Are you able to care for yourself? Yes [email or web address] Information not available 01/07/2024 Do you have difficulty dressing or bathing? No Information not available 01/07/2024 What is your exercise level? Moderate [email or web address] Information not available 01/07/2024 Mental Status None recorded. Family History Relationship Description Onset Age of this Age Resolved Age Notes LastModified by Organization Details LastModified Time Father No current problems or disability Not available 01/2024 13:20:28 Mother No current problems or disability [email or web address] Not available 01/2024 13:20:28 Medical History Condition Response Allergies (Food, seasonal, environmental ) Y Other N Drug/Latex Allergies/Reactions N Blood Transfusion N Breast Cancer N Dermatologic Disorders N Lung Disease N Defects or Inherited Disease N Breast Problem N Gestational Diabetes N Hematologic disorders N Anesthesia Complications N History of STI N Deep Vein Thrombosis N Polycystic ovary syndrome N Anxiety Disorder N Autoimmune disease N Arthritis Y Polyps N Infertility N Acid Reflux (GERD) Y History of abnormal pap N Cancer N Varicosities N Stroke N Neurologic/Epilepsy Y Endometriosis N High Cholesterol Y Fibromyalgia N Headaches N Kidney Disease N Heart Problems Y Thyroid Problems N Kidney or Bladder Problems N GI Problems N Eating Disorder N Anemia N Art (IVF or FET) N Psychiatric Illness N Ovarian Cancer N Diabetes N Pulmonary (TB, Asthma) N Hepatitis/Liver Disease N No Past Medical History N Eczema N Urinary Tract Infection N Abuse/Domestic Violence N Asthma N Trauma/Violence N Depression/ depression N Heart Disease Y Pre-Eclampsia N Hypertension N Osteoporosis Y Thrombophilias N Gynecological History Statement/Question Response Abnormal Pap N Date of Last Mammogram 10/05/2022 Date of LMP 10/05/2009 On BCP's at Conception? N N Was last menstrual period normal Y STIs/STDs N Current Control Method Tubal Ligat ion Age at First Child 17 If Post Menopausal, Age at Menopause 45 Sexually Active? Y Date of DEXA bone scan 10/05/2009 Age of first menstrual cycle 10 Date of Last Pap Smear 01/07/2024 Sexual Problems? N Desired Control Method LMP Unknown N Obstetrics History GPAL:G 2 P 1 0 1 1 Type Value Full Term 1 Living 1 Ectopics 1 Total 2 Past Encounters Encounter ID Performer Location Encounter Start Date Encounter Closed Date Diagnosis/Indication Diagnosis SNOMED-CT Code Diagnosis ICD10 Code [id number] Ronen Sullivan MD [facility] [address] [address] 01/07/2024 12:09:04 01/07/2024 14:24:45 Gynecologic examination 82968521 Z01.419 Health Concerns Section Related Observation LastModified by Organization Detai ls LastModified Time None Recorded Concern Status LastModified by Organization Details LastModified Time None Recorded Advance Directives Directive None Recorded Payers Encounter Date Sequence Insurance Name Policy Number Policy Zurita Covered Member ID Zurita Member ID Guarantor Name 01/07/2024 1 [employer] (MEDICARE REPLACEMENT/A DVANTAGE - HMO) Lisbet Alejandro [id number] Lisbet Alejandro Notes Date Note Type Note Provider Name and Address Organization Details Recorded Time 01/07/2024 text/html Annual GYNReport ed bypatient.History:n o gynecologic complaints Urinary symptoms:No hematuria; No incontinence Vulva:No genital lesion Vagina:Normal vaginal discharge Breast:No breast pain; No breast lump Current Contraception:Satis fied with current contraception Sexual complaints:No sexual complaints; No pain during intercourse Menopausal Symptoms:No menopausal symptoms; Normal vaginal lubrication Psychological symptoms:No depression; No anxiety Preventive measures:Encourage self breast examination; Encourage regular exercise Ronen Sullivan MD [address], [place], [address], [facility] 01/07/2024 14:23:50 OBGyn Episode Ob Episode Information Episode Created Date Number of Fetuses Patient Bloodtype Patient rh Status Prepregnancy Weight lbs Domestic Partner Domestic Partner Phone Father Name Freelance Writer Status 01/07/20 24 1 CLOSED Fetus Data First Name Last Name Admitted to NICU Weight (g) Sex Living Outcome Pediatric Complications Fetus ID Race Codes Race Delivery Type 6123.49 2 M Full Term [id number] Vaginal Delivery Juan J Calculation JUAN J Calculation Method Initial Juan J Date Initial Exam Date Initial Exam Provider Initial Ultrasound Date Last Menstrual Period Date Ultra Sound Weeks Gestation Conception by IVF Embryo Age at Transfer Date of Transfer 0 Eighteen To Twenty Week Juan J Update Ultra Sound Date Fundal Height At Umbil Quickening Date Ultra Sound Latest Weeks Gestation Final Juan J Confirmed By Final Juan J Confirmed Date Final Juan J Date Ultra Sound Latest Days Gestation 0 0 Menstrual History Last Menstrual Date Menses Monthly On Bcp Conception Prior Menses Frequency Hcg Plus Date Menarche Onset Age Delivery Information Delivery Date Delivery Type Labor Anesthesia Weeks Gestation Incision Type Labor Labor Length Hrs Delivered By Post Complications Tubal Sterilization Discharge Date Comments 3 Discharge Information Feeding Method Contraceptive Method Maternal HG B and HCT Levels Ob Episode Information Episode Created Date Number of Fetuses Patient Bloodtype Patient rh Status Prepregnancy Weight lbs Domestic Partner Domestic Partner Phone Father Name Freelance Writer Status 01/07/20 24 1 CLOSED Fetus Data First Name Last Name Admitted to NICU Weight (g) Sex Living Outcome Pediatric Complications Fetus ID Race Codes Race Delivery Type Ectopic [id number] Juan J Calculation JUAN J Calculation Method Initial Juan J Date Initial Exam Date Initial Exam Provider Initial Ultrasound Date Last Menstrual Period Date Ultra Sound Weeks Gestation Conception by IVF Embryo Age at Transfer Date of Transfer 0 Eighteen To Twenty Week Juan J Update Ultra Sound Date Fundal Height At Umbil Quickening Date Ultra Sound Latest Weeks Gestation Final Juan J Confirmed By Final Juan J Confirmed Date Final Juan J Date Ultra Sound Latest Days Gestation 0 0 Menstrual History Last Menstrual Date Menses Monthly On Bcp Conception Prior Menses Frequency Hcg Plus Date Menarche Onset Age Delivery Information Delivery Date Delivery Type Labor Anesthesia Weeks Gestation Incision Type Labor Labor Length Hrs Delivered By Post Complications Tubal Sterilization Discharge Date Comments 0 Discharge Information Feeding Method Contraceptive Method Maternal HG B and HCT Levels
--- OUTSIDE RECORDS SUMMARY | 2024-10-07 01:41 | XMS_ITS | Encounter Summary ---
Author Organization [facility] Address [address] [place] [address]. [place], [place] [id number] [place] [address] Care Team Providers Care Peoplesoft Consultant Name Role Phone Dion Greene MD Primary Care Provider [phone] Encounter Details Date Type Department Care Team (Late st Contact Info) Description 12/28/1992 [place] [address] , Generic Conversion, Social History Tobacco Use Types Packs/Day Years Used Date Smoking Tobacco: Never Assessed Comments Unknown Sex and Gender Information Value Date Recorded Sex Assigned at Not on file Legal Sex Female 4:28 PM CDT Gender Identity Not on file Sexual Orientation Not on file documented as of this encounter Plan of Treatment Not on file documented as of this encounter Visit Diagnoses Not on filedocumented in this encounter Care Teams Peoplesoft Consultant Relationship Specialty Start Date End Date Dion Greene MD PCP - General 02/20/12 documented as of this encounter
--- OUTSIDE RECORDS SUMMARY | 2024-10-07 01:42 | XMS_ITS | Clinical Summary ---
Author Organization [facility] [place] [address] [facility] [address] Address [address] [place] [address] Care Team Providers Care Curing Pickling Packer Name Role Phone Evelio Wilson MD Primary Care Provider [phone] Allergies No known active allergies Medications multivitamin tablet tablet take 1 by Oral route once 0 0 5 Active aspirin (ASPIR-81) 81 mg tablet take 1 Tablet by oral route every day 0 0 6 Active calcium citrate-vitamin D3 250 mg calcium- 200 unit tablet Take by mouth. Active melatonin 10 mg tablet Take 1 tablet (10 mg total) by mouth daily Active rosuvastatin (CRESTOR) 40 mg tablet 0.5 tablets (20 mg total) [address] (PROTONIX) 40 mg EC tablet 1 Active topiramate (TOPAMAX) 50 mg tablet Take 1 tablet (50 mg total) by mouth nightly at bedtime 2 Active ezetimibe (ZETIA) 10 mg tablet Take 1 tablet (10 mg total) by mouth daily 2 Active omega-3 fatty acids (LOVAZA) 1 gram capsule Take 1 capsule (1 g total) by mouth 2 (two) times a day 2 Active vitamin B complex tablet extended release Take by mouth Active HYDROcodone-acet aminophen (NORCO) 5-325 mg per tablet Take by mouth every 6 (six) hours as needed 3 Active metoprolol XL (TOPROL-XL) 50 mg extended release tablet Take 1 tablet (50 mg total) by mouth daily 30 tablet 11 5 10/06/19 26 Active isosorbide mononitrate ER (IMDUR) 30 mg 24 hr tablet Take 1 tablet (30 mg total) by mouth daily 30 tablet 11 5 10/06/19 26 Active oxyCODONE-acetam inophen (PERCOCET) 10-325 mg per tablet take 1 tablet by oral route every 6 hours as needed 0 0 5 09/09/20 24 Discontinu ed(Therapy completed) meloxicam (MOBIC) 15 mg tablet Take 1 tablet (15 mg total) by mouth daily 3 09/09/20 24 Discontinu ed(Therapy completed) semaglutide (WEGOVY) 0.25 mg/0.5 mL auto-injector Inject 0.5 mL (0.25 mg total) under the skin every 7 days 09/09/20 24 Discontinu ed(Therapy completed) Active Problems Problem Noted Date Diagnosed Date Coronary artery disease invo lving [place] coronary artery of [place] heart without angina pectoris 01/21/2018 History of coronary artery stent placement 01/21 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 Mass of neck 08/09/2015 Encounters Date Type Department Care Team Description 10/06/2024 Telephone [facility] Cardiology [address] [place] [address] [place] [phone] Jose Reddy MD Cardiac Rehab 10/03/2024 Telephone [facility] Cardiology [address] [place] [address] [place] [phone] Jose Reddy MD 09/09/2024 10:30 AM [employer]ROLE[employer]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 Office Visit [facility] Cardiology [address] [place] [address] [place] [phone] Jose Reddy MD Coronary artery disease involving [place] coronary artery of [place] heart without angina pectoris (Primary Dx); History of coronary artery stent placement 09/09/2024 Telephone [facility] Cardiology [address] [place] [address] [place] [phone] Jose Reddy MD 07/21/2024 Telephone [facility] Cardiology [address] [place] [address] Rosa Acevedo MA Reschedule from Last 3 Months Family History Medical History Relation Name Comments Cancer Brother 1 Cancer, unknown ; Heart disease Brother 2 Family history of cardiac disorder - (Added by TW Conv) Cancer Brother 3 Family history of malignant neoplasm - (Added by TW Conv) Cancer Father Cancer, unknown ; Other Mother Alive and well; Relation Name Status Comments Brother 1 Brother 2 Brother 3 Father Mother Alive Social History Tobacco Use Types Packs/Day Years Used Date Smoking Tobacco: Former Smokeless Tobacco: Never Tobacco Cessation:Counseling Given: Not Answered Alcohol Use Standard Drinks/Week Comments Yes 0 (1 standard drink = 0.6 oz pur e alcohol) Comments Unknown Sex and Gender Information Value Date Recorded Sex Assigned at Not on file Legal Sex Female 10:17 AM PETROLE[employer]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 Gender Identity Not on file Sexual Orientation Not on file Obstetrics History Last Filed Vital Signs Vital Sign Reading Time Taken Comments Blood Pressure 120/60 09/09/2024 10:22 AM [employer]ROLE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 Pulse 88 09/09/2024 10:22 AM PETROLE[employer] BL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 Temperature - - Respiratory Rate - - Oxygen Saturation 98% 09/09/2024 10:22 AM [employer]ROLE[employer] BL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 Inhaled Oxygen Concentration - - Weight 88.5 kg (195 lb 3.2 oz) 09/09/2024 10:22 AM [employer]ROLE[employer] BL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 Height 172.7 cm (5' 8 ) 09/09/2024 10:22 AM [employer]ROLE[employer] BL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 Body Mass Index 29.68 09/09/2024 10:22 AM [employer]ROLEUM 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 Plan of Treatment Health Maintenance Due Date Last Done Comments Breast Cancer Screening-Mammogram 1963 Cervical Cancer Screening 1963 Colon Cancer Screening-Colonoscopy 1963 Depression Screening 1963 Hepatitis C Screening 1963 Hepatitis B Screening 1981 Regular Well Visit/Exam 18-64 1981 Zoster Vaccine (1 of 2) 2013 DTaP/Tdap/Td Vaccine (1 - Tdap) 01/02/2016 6 Influenza Vaccine (#1) 2024 Pneumococcal vaccine <65 Aged Out No longer eligible based on patient's age to complete this topic Procedures Procedure Name Priority Date/Time Associated Diagnosis Comments POCT LIPID PANEL Routine 09/09/2024 10:0 0 AM 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 Coronary artery disease involving [place] coronary artery of [place] heart without angina pectoris from Last 3 Months Results * POCT lipid panel (09/09/2024 10:00 AM [employer]RO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) Cholesterol, POC 207 mg/dL Comment:GLU = 91 HDL, POC 57 mg/dL Triglycerides, POC 217 mg/dL LDL Cholesterol POC 107 mg/dL Chol/HDL Ratio, POC 1.9 Non-HDL Cholesterol, POC 150 mg/dL Cholesterol Total, POC 207 mg/dL Capillary blood 09/09/2024 1 0:00 AM [employer]ROLE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 Jose Reddy MD POINT OF CARE TEST ORDER ALFREDO Final Result from Last 3 Months Insurance [facility] MEDICARE HMO [facility] MEDICARE HMO Care Teams Curing Pickling Packer Relationship Specialty Start Date End Date Evelio Wilson MD PCP - General Family Practice 03/05/23
--- OUTSIDE RECORDS SUMMARY | 2024-10-07 01:42 | XMS_ITS | Encounter Summary ---
Author Organization [facility] Healthcare Address [address] [place] [address] Care Team Providers Care Assisted Living Director Name Role Phone Evelio Wilson MD Primary Care Provider [phone] [phone] Reason for Visit * Reason Comments Follow-up Annual f/u Coronary Artery Disease Encounter Details Date Type Department Care Team (Late st Contact Info) Description 09/09/2024 10:30 AM PHYSICAL THERAPY MANAGER Office Visit [facility] Cardiology [address] [phone] Jose Reddy MD [address] [facility] [address] [place], [place] [id number] Coronary artery disease involving [place] coronary artery of [place] heart without angina pectoris (Primary Dx); History of coronary artery stent placement Social History Tobacco Use Types Packs/Day Years Used Date Smoking Tobacco: Former Smokeless Tobacco: Never Alcohol Use Standard Drinks/Week Comments Yes 0 (1 standard drink = 0.6 oz pur e alcohol) Comments Unknown Sex and Gender Information Value Date Recorded Sex Assigned at Not on file Legal Sex Female 10:17 AM PHYSICAL THERAPY MANAGER Gender Identity Not on file Sexual Orientation Not on file documented as of this encounter Last Filed Vital Signs Vital Sign Reading Time Taken Comments Blood Pressure 120/60 09/09/2024 10:22 AM PHYSICAL THERAPY MANAGER Pulse 88 09/09/2024 10:22 AM PHYSICAL THERAPY MANAGER Temperature - - Respiratory Rate - - Oxygen Saturation 98% 09/09/2024 10:22 AM PHYSICAL THERAPY MANAGER Inhaled Oxygen Concentration - - Weight 88.5 kg (195 lb 3.2 oz) 09/09/2024 10:22 AM PHYSICAL THERAPY MANAGER Height 172.7 cm (5' 8 ) 09/09/2024 10:22 AM PHYSICAL THERAPY MANAGER Body Mass Index 29.68 09/09/2024 10:22 AM PHYSICAL THERAPY MANAGER documented in this encounter Progress Notes * Jose Reddy MD - 09/09/2024 10:30 AM CST [facility] FOLLOW UP 09/09/2024 Lisbet Alejandro is a 59 y.o. female who presents for follow up of coronary artery disease. This is a patient who presented in December of 2014 with acute inferior wall infarction. She underwent emergency right coronary intervention involving PTCA and stenting of the 2nd portion of the artery. She receiveda 3 x 23 mm Alpine drug-eluting stent with a nice anatomical result. She did have a Lexiscan nuclear stress test in April of 2023 when she was reporting some intermittent episodes of chest discomfort while swimming in the pool. The study showed a small fixed inferior defect compatible with her history but no ischemia. LV function was hyperdynamic. The patient presents today for scheduled annual appointment. She reports today that she is concerned about the burning exertional chest pain that she was reporting last year. We did a Lexiscan nuclear stress as I mentioned above with favorable findings. She says that especially in the cold weather if she exerts any length of walking she will have burning chest pain and she is significant concerned about her coronary disease which is of course understandable. We discussed and recommended a follow-up angiogram in this setting. REVIEW OF SYSTEMS General ROS: negative for - chills, fatigue, fever, malaise, night sweats, weight gain or weight loss Psychological ROS: negative for - anxiety, depression, memory difficulties or sleep disturbances Ophthalmic ROS: negative for - blurry vision, decreased vision, loss of vision or scotomata ENT ROS: negative for - epistaxis, headaches, hearing change, nasal congestion, nasal discharge, sore throat, vertigo or visual changes Hematological and Lymphatic ROS: negative for - bleeding problems, blood clots, bruising, fatigue or weight loss Endocrine ROS: negative for - hot flashes, palpitations, polydipsia/polyuria or unexpected weight changes Respiratory ROS: negative for - cough, hemoptysis, orthopnea, shortness of breath, tachypnea or wheezing Cardiovascular ROS: negative for - chest pain, dyspnea on exertion, edema, irregular heartbeat, loss of consciousness, murmur, orthopnea, palpitations, paroxysmal nocturnal dyspnea, rapid heart rate or shortness of breath Gastrointestinal ROS: negative for - abdominal pain, appetite loss, blood in stools, constipation, diarrhea, gas/bloating, heartburn, hematemesis, melena or nausea/vomiting Genito-Urinary ROS: negative for - dysuria, or hematuria Musculoskeletal ROS: negative for - joint pain, muscle pain or muscular weakness Dermatological ROS: negative for dry skin, eczema, pruritus and rash HOME MEDICATIONS Current Outpatient Medications: aspirin (ASPIR-81) 81 mg tablet, take 1 Tablet by oral route every day, Disp: 0, Rfl: 0 calcium citrate-vitamin D3 250 mg calcium- 200 unit tablet, Take by mouth., Disp: , Rfl: ezetimibe (ZETIA) 10 mg tablet, Take 1 tablet (10 mg total) by mouth daily, Disp: , Rfl: HYDROcodone-acetaminophen (NORCO) 5-325 mg per tablet, Take by mouth every 6 (six) hours as needed,Disp: , Rfl: melatonin 10 mg tablet, Take 1 tablet (10 mg total) by mouth daily, Disp: , Rfl: multivitamin tablet tablet, take 1 by Oral route once, Disp: 0, Rfl: 0 omega-3 fatty acids (LOVAZA) 1 gram capsule, Take 1 capsule (1 g total) by mouth 2 (two) times a day, Disp: , Rfl: pantoprazole DR (PROTONIX) 40 mg EC tablet, , Disp: , Rfl: rosuvastatin (CRESTOR) 40 mg tablet, 0.5 tablets (20 mg total), Disp: , Rfl: topiramate (TOPAMAX) 50 mg tablet, Take 1 tablet (50 mg total) by mouth nightly at bedtime, Disp: ,Rfl: vitamin B complex tablet extended release, Take by mouth, Disp: , Rfl: LABS AND OTHER DIAGNOSTIC TESTS No results found for: CHOL No results found for: HDL No results found for: LDLCALC No results found for: TRIG No results found for: CHOLHDL Lab Results Component Value Date HGB 11.2 (L) 09/06/2015 HCT 34.3 (L) 09/06/2015 MCV 97.6 09/06/2015 No lab exists for component: LABALBU PHYSICAL EXAM Vitals BP 120/60 (BP Location: Right arm, Patient Position: Sitting) Pulse 88 Ht 172.7 cm (5' 8 ) Wt 88.5 kg (195 lb 3.2 oz) SpO2 98% BMI 29.68 kg/m?? Physical Examination: General appearance - alert, well appearing, and in no distress, oriented to person, place, and time and acyanotic, in no respiratory distress Mental status - affect appropriate to mood Eyes - extraocular eye movements intact, sclera anicteric, no pallor Ears - external earsappear normal, hearing grossly normal bilaterally Nose - normal and patent, no erythema or discharge Mouth - mucous membranes moist, pharynx appears normal, dental hygiene good and tongue normal Neck - supple, no significant neck masses, carotids upstroke normal bilaterally, no bruits, no JVD Chest - clear to auscultation, no wheezes, rales or rhonchi, symmetric air entry, no tachypnea, retractions or cyanosis Heart - normal rate, regular rhythm, normal S1, S2, no murmurs, rubs, clicks or gallops, no JVD Abdomen - soft, nontender, nondistended, no masses or organomegaly bowel sounds normal Neurological - alert, oriented, normal speech, no focal findings or movement disorder noted Musculoskeletal - no joint tenderness, deformity or swelling, no muscular tenderness noted Extremities - peripheral pulses normal, no pedal edema, no clubbing or cyanosis Skin - normal coloration and turgor, no rashes, no suspicious skin lesions noted ASSESSMENT Lisbet was seen today for follow-up and coronary artery disease. Diagnoses and all orders for this visit: Coronary artery disease involving [place] coronary artery of [place] heart without angina pectoris History of coronary artery stent placement PLAN/RECOMMENDATIONS Given her exertional symptoms that are very typical of angina I believe we should arrange for a follow-up coronary angiogram to be done. The patient understands and agrees with this. I did inform her that I am no longer performing angiography and that 1 of my partners would be taking care of this procedure for her Jose Reddy MD ICAL THERAPY MANAGER documented in this encounter Miscellaneous Notes * Addendum Note - Michelet Acevedo MA - 09/09/2024 10:30 AM CSTAddended by: MICHELET ACEVEDO on: 09/13/2024 02:24 PM Modules accepted: Orders ICAL THERAPY MANAGER documented in this encounter Plan of Treatment Not on file documented as of this encounter Procedures Procedure Name Priority Date/Time Associated Diagnosis Comments POCT LIPID PANEL Routine 09/09/2024 10:0 0 AM PHYSICAL THERAPY MANAGER Coronary artery disease involving [place] coronary artery of [place] heart without angina pectoris documented in this encounter Results * POCT lipid panel (09/09/2024 10:00 AM PHYSICAL THERAPY MANAGER) Cholesterol, POC 207 mg/dL Comment:GLU = 91 HDL, POC 57 mg/dL Triglycerides, POC 217 mg/dL LDL Cholesterol POC 107 mg/dL Chol/HDL Ratio, POC 1.9 Non-HDL Cholesterol, POC 150 mg/dL Cholesterol Total, POC 207 mg/dL Capillary blood 09/09/2024 1 0:00 AM PHYSICAL THERAPY MANAGER us Jose Reddy MD POINT OF CARE TEST ORDER ALFREDO Final Result documented in this encounter Visit Diagnoses Diagnosis Coronary artery disease involving [place] coronary artery of [place] heart without angina pectoris- Primary History of coronary artery stent placement documented in this encounter Discontinued Medications Medication Sig Discontinue Reason Start Date End Da te meloxicam (MOBIC) 15 mg tablet Take 1 tablet (15 mg total) by mouth daily Therapy completed 02/05/2023 09/09/2024 oxyCODONE-acetaminophen (PERCOCET) 10-325 mg per tablet take 1 tablet by oral route every 6 hours as needed Therapy completed 12/29/2014 09/09/2024 semaglutide (WEGOVY) 0.25 mg/0.5 mL auto-injector Inject 0.5 mL (0.25 mg total) under the skin every 7 days Therapy completed 09/09/2024 documented as of this encounter Care Teams Assisted Living Director Relationship Specialty Start Date End Date Evelio Wilson MD PCP - General Family Practice 03/05/23 documented as of this encounter
--- OUTSIDE RECORDS SUMMARY | 2024-10-07 01:42 | XMS_ITS | Encounter Summary ---
Author Organization [facility] Healthcare Address [address] [place] [address] Care Team Providers Care Supervisor Briar Shop Name Role Phone Evelio Wilson MD Primary Care Provider [phone] Reason for Visit * Reason Onset Date Comments Reschedule 07/21/2024 Encounter Details Date Type Department Care Team (Late st Contact Info) Description 07/21/2024 Telephone [facility] Cardiology [address] [place] [phone] Rosa Acevedo MA Reschedule Social History Tobacco Use Types Packs/Day Years Used Date Smoking Tobacco: Former Smokeless Tobacco: Never Alcohol Use Standard Drinks/Week Comments Yes 0 (1 standard drink = 0.6 oz pur e alcohol) Comments Unknown Sex and Gender Information Value Date Recorded Sex Assigned at Not on file Legal Sex Female 10:17 AM 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 Pt will decide if she wants appt in [place] or [facility] back tomorrow for appt documented in this encounter Plan of Treatment Not on file documented as of this encounter Visit Diagnoses Not on filedocumented in this encounter Care Teams Supervisor Briar Shop Relationship Specialty Start Date End Date Evelio Wilson MD PCP - General Family Practice 03/05/23 documented as of this encounter
--- OUTSIDE RECORDS SUMMARY | 2024-10-07 01:42 | XMS_ITS | Referral Summary ---
Author Organization [facility] [address] [address] [place] [address] [address] [place] [address] Care Team Providers Care Tile Shader Name Role Phone Evelio Wilson MD Primary Care Provider [phone] Encounters Date Type Department Care Team Description 10/06/2024 Telephone [facility] Cardiology [address] [place] [address] [address] [place] [address] Jose Reddy MD Cardiac Rehab 10/03/2024 Telephone [facility] Cardiology [address] [place] [address] [address] [place] [phone] Jose Reddy MD 09/09/2024 Telephone [facility] Cardiology [address] [place] [address] [address] [place] [phone] Jose Reddy MD 09/09/2024 10:30 AM CLINICAL HAEMATOLOGIST Office Visit [facility] Cardiology [address] [place] [address] [address] [place] [phone] Jose Reddy MD Coronary artery disease involving [place] coronary artery of [place] heart without angina pectoris (Primary Dx); History of coronary artery stent placement 07/21/2024 Telephone 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 Mass of neck 08/09/2015 Social History Tobacco Use Types Packs/Day Years Used Date Smoking Tobacco: Former Smokeless Tobacco: Never Tobacco Cessation:Counseling Given: Not Answered Alcohol Use Standard Drinks/Week Comments Yes 0 (1 standard drink = 0.6 oz pur e alcohol) Comments Unknown Sex and Gender Information Value Date Recorded Sex Assigned at Not on file Legal Sex Female 10:17 AM CLINICAL HAEMATOLOGIST Gender Identity Not on file Sexual Orientation Not on file Last Filed Vital Signs Vital Sign Reading Time Taken Comments Blood Pressure 120/60 09/09/2024 10:22 AM CLINICAL HAEMATOLOGIST Pulse 88 09/09/2024 10:22 AM CLINICAL HAEMATOLOGIST Temperature - - Respiratory Rate - - Oxygen Saturation 98% 09/09/2024 10:22 AM CLINICAL HAEMATOLOGIST Inhaled Oxygen Concentration - - Weight 88.5 kg (195 lb 3.2 oz) 09/09/2024 10:22 AM CLINICAL HAEMATOLOGIST Height 172.7 cm (5' 8 ) 09/09/2024 10:22 AM CLINICAL HAEMATOLOGIST Body Mass Index 29.68 09/09/2024 10:22 AM CLINICAL HAEMATOLOGIST Plan of Treatment Not on file Procedures Procedure Name Priority Date/Time Associated Diagnosis Comments POCT LIPID PANEL Routine 09/09/2024 10:0 0 AM CLINICAL HAEMATOLOGIST Coronary artery disease involving [place] coronary artery of [place] heart without angina pectoris from Last 3 Months Results * POCT lipid panel (09/09/2024 10:00 AM CLINICAL HAEMATOLOGIST) Cholesterol, POC 207 mg/dL Comment:GLU = 91 HDL, POC 57 mg/dL Triglycerides, POC 217 mg/dL LDL Cholesterol POC 107 mg/dL Chol/HDL Ratio, POC 1.9 Non-HDL Cholesterol, POC 150 mg/dL Cholesterol Total, POC 207 mg/dL Capillary blood 09/09/2024 1 0:00 AM CLINICAL HAEMATOLOGIST Jose Reddy MD POINT OF CARE TEST ORDER ALFREDO Final Result from Last 3 Months Insurance [facility] MEDICARE HMO [facility] MEDICARE O Care Teams Tile Shader Relationship Specialty Start Date End Date Evelio Wilson MD PCP - General Family Practice 03/05/23
--- OUTSIDE RECORDS SUMMARY | 2024-10-07 01:42 | XMS_ITS | Encounter Summary ---
Author Organization [facility] Address [address] [place] [address] Care Team Providers Care Boat Outboard Engine Mechanic Name Role Phone Evelio Wilson MD Primary Care Provider [phone] Reason for Referral * Procedure (Routine) - Closed Specialty Diagnoses / Procedures Referred By Contac t Referred To Contact Cardiology Diagnoses Coronary artery disease involving [place] coronary artery of andreafski heart without angina pectoris History of coronary artery stent placement Jose Reddy MD [facility] [address] [place] [id number] Phone: tel: fax: [facility] Cardiology [address] [place] [address] Phone: tel: fax: Referral ID Status Reason Start Date Expiration Date V isits Requested Visits Authorized [id number] Closed Specialty Services Required 09/29/2024 10/04/2024 1 1 Scheduling Instructions PROCEDURE/TEST ORDERED: [facility] LOCATION: DATE OF SERVICE:09/30/24 INSURANCE:[employer] Medicare DIAGNOSIS:CAD, CP, abnormal stress test ORDERING PROVIDER:RUSSEL ADDITIONAL DETAILS: Question Answer Please select the performing region: [facility] [[id number]] Please select the performing department: [facility] [[id number]] # of visits: 1 WASHER Encounter Details Date Type Department Care Team (Late st Contact Info) Description 09/09/2024 Telephone [facility] Cardiology [address] [place] [address] Jose Reddy MD [address] [place] [address] Social History Tobacco Use Types Packs/Day Years Used Date Smoking Tobacco: Former Smokeless Tobacco: Never Alcohol Use Standard Drinks/Week Comments Yes 0 (1 standard drink = 0.6 oz pur e alcohol) Comments Unknown Sex and Gender Information Value Date Recorded Sex Assigned at Not on file Legal Sex Female 10:17 AM TANK WASHER Gender Identity Not on file Sexual Orientation Not on file documented as of this encounter Miscellaneous Notes * Telephone Encounter - Rosa Sloan RN - 09/09/2024 10:59 AM TANK WASHER Pt scheduled for LHC at with [facility] on 09/30 at 0830. Instructions reviewed with pt, written instructions provided. Pt verbalizes understanding. Advised to call with any questions or concerns. Will forward to [facility] and [facility] as FYI. WASHER documented in this encounter Plan of Treatment Scheduled Referrals Name Type Priority Associated Diagnoses Order Schedule Ambulatory referral to Cardiology Outpatient Referral Routine Coronary artery disease involving [place]reafski coronary artery of andreafski heart without angina pectoris History of coronary artery stent placement Expected: 09/23/2024 (Approximate), Expires: 09/09/2025 documented as of this encounter Visit Diagnoses Diagnosis Coronary artery disease involving andreafski coronary artery of andreafski heart without angina pectoris- Primary History of coronary artery stent placement documented in this encounter Care Teams Boat Outboard Engine Mechanic Relationship Specialty Start Date End Date vEelio Wilson MD PCP - General Family Practice 03/05/23 documented as of this encounter
--- OUTSIDE RECORDS SUMMARY | 2024-10-07 01:42 | XMS_ITS | Encounter Summary ---
Author Organization [facility] Healthcare Address [address] [place] [address] Care Team Providers Care Flooring Professional Name Role Phone Evelio Wilson MD Primary Care Provider [phone] Reason for Visit * Reason Comments Follow-up 6 mo Encounter Details Date Type Department Care Team (Late st Contact Info) Description 08/25/2023 11:00 AM UROLOGY NURSE Office Visit [facility] Cardiology [address] [address] Jose Reddy MD [address] [facility] [address] [place] [address] Coronary artery disease involving [place] coronary artery of [place] heart without angina pectoris (Primary Dx); History of coronary artery stent placement; Lipid screening Social History Tobacco Use Types Packs/Day Years Used Date Smoking Tobacco: Former Smokeless Tobacco: Never Tobacco Cessation:Counseling Given: Not Answered Alcohol Use Standard Drinks/Week Comments Yes 0 (1 standard drink = 0.6 oz pur e alcohol) Comments Unknown Sex and Gender Information Value Date Recorded Sex Assigned at Not on file Legal Sex Female 10:17 AM UROLOGY NURSE Gender Identity Not on file Sexual Orientation Not on file documented as of this encounter Last Filed Vital Signs Vital Sign Reading Time Taken Comments Blood Pressure 130/68 08/25/2023 11:05 AM UROLOGY NURSE Pulse 94 08/25/2023 11:05 AM UROLOGY NURSE Temperature - - Respiratory Rate - - Oxygen Saturation 97% 08/25/2023 11:05 AM UROLOGY NURSE Inhaled Oxygen Concentration - - Weight 88.9 kg (196 lb) 08/25/2023 11:05 AM UROLOGY NURSE Height 172.7 cm (5' 8 ) 08/25/2023 11:05 AM UROLOGY NURSE Body Mass Index 29.8 08/25/2023 11:05 AM UROLOGY NURSE documented in this encounter Progress Notes * Jose Reddy MD - 08/25/2023 11:00 AM CST [facility] FOLLOW UP 08/25/2023 Lisbet Alejandro is a 58 y.o. female who presents for follow up of coronary artery disease. This is a patient who presented in December of 2014 with acute inferior wall infarction. She underwent emergency right coronary intervention involving PTCA and stenting of the 2nd portion of the artery. She receiveda 3 x 23 mm Alpine drug-eluting stent with a nice anatomical result. She presents today for previously scheduled office follow-up. I did have the patient undergo a Lexiscan nuclear stress test in April of 2023 as she was reporting some symptoms of burning chest discomfort while swimming in the pool and performing water aerobics. The findings of the stress test were favorable. There was a small fixed inferior defect compatible with the above history, no significant ischemic burden. Left ventricular ejection fraction was hyperdynamic at 78%. She is doing very well and describes no cardiovascular symptoms or concerns. She is taking medication to try to lose some weight. REVIEW OF SYSTEMS General ROS: negative for [...] and rash HOME MEDICATIONS Current Outpatient Medications: ??? aspirin (ASPIR-81) 81 mg tablet, take 1 Tablet by oral route every day, Disp: 0, Rfl: 0 ??? calcium citrate-vitamin D3 250 mg calcium- 200 unit tablet, Take by mouth., Disp: , Rfl: ??? ezetimibe (ZETIA) 10 mg tablet, Take 1 tablet (10 mg total) by mouth daily, Disp: , Rfl: ??? HYDROcodone-acetaminophen (NORCO) 5-325 mg per tablet, Take by mouth every 6 (six) hours as needed, Disp: , Rfl: ??? melatonin 10 mg tablet, Take 1 tablet (10 mg total) by mouth daily, Disp: , Rfl: ??? multivitamin tablet tablet, take 1 by Oral route once, Disp: 0, Rfl: 0 ??? omega-3 fatty acids (LOVAZA) 1 gram capsule, Take 1 capsule (1 g total) by mouth 2 (two) times a day, Disp: , Rfl: ??? pantoprazole DR (PROTONIX) 40 mg EC tablet, , Disp: , Rfl: ??? rosuvastatin (CRESTOR) 40 mg tablet, 0.5 tablets (20 mg total), Disp: , Rfl: ??? semaglutide (WEGOVY) 0.25 mg/0.5 mL auto-injector, Inject 0.5 mL (0.25 mg total) under the skinevery 7 days, Disp: , Rfl: ??? vitamin B complex tablet extended release, Take by mouth, Disp: , Rfl: ??? meloxicam (MOBIC) 15 mg tablet, Take 1 tablet (15 mg total) by mouth daily (Patient not taking:Reported on 08/25/2023), Disp: , Rfl: ??? oxyCODONE-acetaminophen (PERCOCET) 10-325 mg per tablet, take 1 tablet by oral route every 6 hours as needed (Patient not taking: Reported on 08/25/2023), Disp: 0, Rfl: 0 ??? topiramate (TOPAMAX) 50 mg tablet, Take 50 mg by mouth nightly at bedtime (Patient not taking: Reported on 02/17/2023), Disp: , Rfl: LABS AND OTHER DIAGNOSTIC TESTS No results found for: CHOL No results found for: HDL No results found for: LDLCALC No results found for: TRIG No results found for: CHOLHDL Lab Results Component Value Date HGB 11.2 (L) 09/06/2015 HCT 34.3 (L) 09/06/2015 MCV 97.6 09/06/2015 No lab exists for component: LABALBU PHYSICAL EXAM Vitals BP 130/68 (BP Location: Right arm, Patient Position: Sitting) Pulse 94 Ht 172.7 cm (5' 8 ) Wt 88.9 kg (196 lb) SpO2 97% BMI 29.80 kg/m?? Physical Examination: General appearance - alert, [...] noted ASSESSMENT Lisbet was seen today for follow-up. Diagnoses and all orders for this visit: Coronary artery disease involving [place] coronary artery of [place] heart without angina pectoris History of coronary artery stent placement Lipid screening - POCT lipid panel PLAN/RECOMMENDATIONS Continue current medical regimen Given her stability and recent favorable nuclear stress test I believe follow-up annually is appropriate at this time Jose Reddy MD OGY NURSE documented in this encounter Plan of Treatment Not on file documented as of this encounter Procedures Procedure Name Priority Date/Time Associated Diagnosis Comments POCT LIPID PANEL Routine 08/25/2023 11:0 8 AM UROLOGY NURSE Lipid screening documented in this encounter Results * POCT lipid panel (08/25/2023 11:08 AM UROLOGY NURSE) Cholesterol, POC 153 mg/dL HDL, POC 44 mg/dL Triglycerides, POC 180 mg/dL LDL Cholesterol POC 73 mg/dL Chol/HDL Ratio, POC 1.6 Non-HDL Cholesterol, POC 109 mg/dL Cholesterol Total, POC 153 mg/dL Capillary blood 08/25/2023 1 1:08 AM UROLOGY NURSE us Jose Reddy MD POINT OF CARE TEST ORDER ALFREDO Final Result documented in this encounter Visit Diagnoses Diagnosis Coronary artery disease involving [place] coronary artery of [place] heart without angina pectoris- Primary History of coronary artery stent placement Lipid screening Screening for lipoid disorders documented in this encounter Historical Medications * This list may reflect changes made after this encounter. HYDROcodone-aceta minophen (NORCO) 5-325 mg per tablet Take by mouth every 6 (six) hours as needed 07/31/2023 semaglutide (WEGOVY) 0.25 mg/0.5 mL auto-injector Inject 0.5 mL (0.25 mg total) under the skin every 7 days 09/09/2024 added in this encounter Care Teams Flooring Professional Relationship Specialty Start Date End Date Evelio Wilson MD PCP - General Family Practice 03/05/23 documented as of this encounter
--- OUTSIDE RECORDS SUMMARY | 2024-10-07 01:42 | XMS_ITS | Encounter Summary ---
Author Organization [facility] Healthcare Address [address] [place] [address] Care Team Providers Care Checker/Stocker Name Role Phone Evelio Wilson MD Primary Care Provider [phone] Encounter Details Date Type Department Care Team (Late st Contact Info) Description 06/07/2024 Telephone [facility] Cardiology [address] [facility] [address] [place] [address] Jose Reddy MD [address] [place], [place] [id number] Social History Tobacco Use Types Packs/Day Years Used Date Smoking Tobacco: Former Smokeless Tobacco: Never Alcohol Use Standard Drinks/Week Comments Yes 0 (1 standard drink = 0.6 oz pur e alcohol) Comments Unknown Sex and Gender Information Value Date Recorded Sex Assigned at Not on file 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 * Telephone Encounter - Vidhi Velasquez - 06/07/2024 12:32 PM CDT Pt states Dr. Wilson ordered a CT scan. She had the CT scan done on Sunday 06/[facility] at [facility].She is going to request results be faxed to our office so MJF can review. Contact: documented in this encounter Plan of Treatment Not on file documented as of this encounter Visit Diagnoses Not on filedocumented in this encounter Care Teams Checker/Stocker Relationship Specialty Start Date End Date Evelio Wilson MD PCP - General Family Practice 03/05/23 documented as of this encounter
--- OUTSIDE RECORDS SUMMARY | 2024-10-07 01:42 | XMS_ITS | Encounter Summary ---
Author Organization [facility] Healthcare Address [address] [place] [address] Care Team Providers Care Parts Sales Advisor Name Role Phone Evelio Wilson MD Primary Care Provider [phone] Encounter Details Date Type Department Care Team (Late st Contact Info) Description 05/03/2024 Telephone [facility] Medical Group Cardiology [address] [facility] [address] [place] [address] Jose Reddy MD [address] [place], [place] [id number] Social History Tobacco Use Types Packs/Day Years Used Date Smoking Tobacco: Former Smokeless Tobacco: Never Alcohol Use Standard Drinks/Week Comments Yes 0 (1 standard drink = 0.6 oz pur e alcohol) Comments Unknown Sex and Gender Information Value Date Recorded Sex Assigned at Not on file Legal Sex Female 10:17 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 * Telephone Encounter - Michelle Knox RN - 05/03/2024 12:24 PM CDT Will forward pt question on to [facility] for his review. Please advise, thank you! * Telephone Encounter - PierceSanna - 05/03/2024 12:14 PM CDT PT states her PCP is wanting to start her on phentermine for weight loss. Although pt would like tofirst know if this will be safe to take with cardiac medication. Pt requesting a call back to further discuss. Contact:[phone] documented in this encounter Plan of Treatment Not on file documented as of this encounter Visit Diagnoses Not on filedocumented in this encounter Care Teams Parts Sales Advisor Relationship Specialty Start Date End Date Evelio Wilson MD PCP - General Family Practice 03/05/23 documented as of this encounter
--- OUTSIDE RECORDS SUMMARY | 2024-10-07 01:42 | XMS_ITS | Encounter Summary ---
Author Organization [facility] Healthcare Address [address] [place] [address] Care Team Providers Care Fisheries Technician Name Role Phone Evelio Wilson MD Primary Care Provider [phone] Encounter Details Date Type Department Care Team (Late st Contact Info) Description 06/08/2024 Telephone [facility] Medical Group Cardiology at [address] [place] [address] Jose Reddy MD [address] [facility] [address] [place] [address] Social History Tobacco Use Types Packs/Day Years Used Date Smoking Tobacco: Former Smokeless Tobacco: Never Alcohol Use Standard Drinks/Week Comments Yes 0 (1 standard drink = 0.6 oz pur e alcohol) Comments Unknown Sex and Gender Information Value Date Recorded Sex Assigned at Not on file 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 Pt states she was told her results would be scanned into her chart although was unsure how that would help her gain clarity. Pt states she was very addiment on wanting MJF to review her results. I advised pt that MJF is the one that initially interprets results and then has his nurse contact pt to go over results. I reassured pt that if MJF saw anything concerning he would let pt know and follow up with any further up recommendations. Pt took a deep breathe and was thankful for the clarity. Contact:[phone] * Telephone Encounter - Michelle Knox RN - 06/08/2024 10:43 AM CDT Spoke with pt, we received the CT result-will add to pts chart. Pt said she read the report and it scared the poop out of her. Tried to reassure pt there was nothing to be scared about that was reported. Pt verbalized understanding. * Telephone Encounter - Janae Diaz - 06/08/2024 8:47 AM CDT Pt got a CT of the chest with her Primary care. They sent over the reading via [employer]. Pt would like Dr. Reddy to look at results and have the clinical staff call back at [phone]. documented in this encounter Plan of Treatment Not on file documented as of this encounter Visit Diagnoses Not on filedocumented in this encounter Care Teams Fisheries Technician Relationship Specialty Start Date End Date Evelio Wilson MD PCP - General Family Practice 03/05/23 documented as of this encounter
--- OUTSIDE RECORDS SUMMARY | 2024-10-07 01:43 | XMS_ITS | Encounter Summary ---
Author Organization [facility] Address [address] [place] [address] Care Team Providers Care Shop Technician Name Role Phone Dion Greene MD Primary Care Provider [phone] Encounter Details Date Type Department Care Team (Late st Contact Info) Description 12/31/2018 Telephone [facility] [address] [facility] [address] [facility] [address] [place] [address] Jose Reddy MD [address] [facility] [address] [place] [address] Social History Tobacco Use Types Packs/Day Years Used Date Smoking Tobacco: Former Smokeless Tobacco: Never Alcohol Use Standard Drinks/Week Comments Yes 0 (1 standard drink = 0.6 oz pur e alcohol) Comments Unknown Sex and Gender Information Value Date Recorded Sex Assigned at Not on file 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 * Telephone Encounter - Rosa River RN - 12/31/2018 2:58 PM CDT Attempt made to call patient at both numbers. No answer and voicemail is not set up. * Telephone Encounter - Krys Mathis - 12/31/2018 2:26 PM CDT Pt reports she just lost her sister. Is experiencing chest pains on and off. Isn't sure if the painis anxiety related. Wants to come in for an ekg. [phone] documented in this encounter Plan of Treatment Not on file documented as of this encounter Visit Diagnoses Not on filedocumented in this encounter Care Teams Shop Technician Relationship Specialty Start Date End Date Dion Greene MD [address] [facility] [address] [place] [address] PCP - General 01/02/17 07/18/19 documented as of this encounter
--- OUTSIDE RECORDS SUMMARY | 2024-10-07 01:43 | XMS_ITS | Encounter Summary ---
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
--- OUTSIDE RECORDS SUMMARY | 2024-10-07 01:43 | XMS_ITS | Encounter Summary ---
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
--- OUTSIDE RECORDS SUMMARY | 2024-10-07 01:43 | XMS_ITS | Encounter Summary ---
Author Organization [facility] Address [address] [facility] [address] [place] [address] Care Team Providers Care Booking Clerk Name Role Phone Van Gonzales DO Primary Care Provider [phone] Encounter Details Date Type Department Care Team (Late st Contact Info) Description 04/25/2021 Telephone [facility] Medical [facility] Cardiology [address] [facility] [address] [place] [address] Vidhi Velasquez Social History Tobacco Use Types Packs/Day Years Used Date Smoking Tobacco: Former Smokeless Tobacco: Never Alcohol Use Standard Drinks/Week Comments Yes 0 (1 standard drink = 0.6 oz pur e alcohol) Comments Unknown Sex and Gender Information Value Date Recorded Sex Assigned at Not on file Legal Sex Female 10:17 AM STENOTYPE OPERATOR Gender Identity Not on file Sexual Orientation Not on file documented as of this encounter Plan of Treatment Not on file documented as of this encounter Visit Diagnoses Not on filedocumented in this encounter Care Teams Booking Clerk Relationship Specialty Start Date End Date Van Gonzales DO PCP - General Internal Medicine 07/19/19 03/04/23 documented as of this encounter
--- OUTSIDE RECORDS SUMMARY | 2024-10-07 01:43 | XMS_ITS | Encounter Summary ---
Author Organization [facility] Address [address] [place] [address] Care Team Providers Care Benzene Still Utility Operator Name Role Phone Dion Greene MD Primary Care Provider [phone] Reason for Visit * Reason Comments Follow-up 6 mo fu on CAD Encounter Details Date Type Department Care Team (Late st Contact Info) Description 10/19/2018 9:15 AM CERTIFIED HOME HEALTH AIDE Office Visit [facility] [address] [phone] Jose Reddy MD [address] [id number] History of coronary artery stent placement (Primary Dx); Coronary artery disease involving [place] coronary artery of [place] heart without angina pectoris Social History Tobacco Use Types Packs/Day Years Used Date Smoking Tobacco: Former Smokeless Tobacco: Never Alcohol Use Standard Drinks/Week Comments Yes 0 (1 standard drink = 0.6 oz pur e alcohol) Comments Unknown Sex and Gender Information Value Date Recorded Sex Assigned at Not on file Legal Sex Female 10:17 AM CERTIFIED HOME HEALTH AIDE Gender Identity Not on file Sexual Orientation Not on file documented as of this encounter Last Filed Vital Signs Vital Sign Reading Time Taken Comments Blood Pressure 130/84 10/19/2018 9:16 AM CERTIFIED HOME HEALTH AIDE Pulse 83 10/19/2018 9:16 AM CERTIFIED HOME HEALTH AIDE Temperature - - Respiratory Rate - - Oxygen Saturation 98% 10/19/2018 9:16 AM CERTIFIED HOME HEALTH AIDE Inhaled Oxygen Concentration - - Weight 73 kg (161 lb) 10/19/2018 9:16 AM CERTIFIED HOME HEALTH AIDE Height 172.7 cm (5' 8 ) 10/19/2018 9:16 AM CERTIFIED HOME HEALTH AIDE Body Mass Index 24.48 10/19/2018 9:16 AM CERTIFIED HOME HEALTH AIDE documented in this encounter Progress Notes * Jose Reddy MD - 10/19/2018 9:15 AM CST [facility] FOLLOW UP 10/19/2018 Lisbet Alejandro is a 53 y.o. female who presents for follow up of coronary artery disease. This is a patient who presented in December of 2014 with acute inferior wall infarction. She underwent emergency right coronary intervention involving PTCA and stenting of the 2nd portion of the artery. She receiveda 3 x 23 mm L Warren drug-eluting stent with a nice anatomical result. She returns today to the office for scheduled follow-up. According to the chart she was in the hospital couple of weeks ago in the part october. The notes in the hospital indicates she was there with dyspnea there was some evidence of COPD on her evaluation. I do not believe we were consulted to see her. Her troponins were negative. 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 She also feels felt that since that ER visit she is having problems with dysuria and wants to know if I would order a urinalysis/culture. REVIEW OF SYSTEMS General ROS: negative for [...] nausea/vomiting Genito-Urinary ROS: negative for - dysuria, erectile dysfunction or hematuria Musculoskeletal ROS: negative for - joint pain, muscle pain or muscular weakness Dermatological ROS: negative for dry skin, eczema, pruritus and rash HOME MEDICATIONS Current Outpatient Prescriptions: ??? aspirin (ASPIR-81) 81 mg tablet, take 1 Tablet by oral route every day, Disp: 0, Rfl: 0 ??? buPROPion XL (WELLBUTRIN XL) 150 mg 24 hr tablet, Take 150 mg by mouth daily., Disp: , Rfl: ??? calcium citrate-vitamin D3 250 mg calcium- 200 unit tablet, Take by mouth., Disp: , Rfl: ??? melatonin 10 mg tablet, Take 10 mg by mouth daily., Disp: , Rfl: ??? multivitamin tablet tablet, take 1 by Oral route once, Disp: 0, Rfl: 0 ??? oxyCODONE-acetaminophen (PERCOCET) 10-325 mg per tablet, take 1 tablet by oral route every 6 hours as needed, Disp: 0, Rfl: 0 ??? rosuvastatin (CRESTOR) 20 mg tablet, Take 1 tablet (20 mg total) by mouth daily., Disp: 90 tablet, Rfl: 1 ??? sertraline (ZOLOFT) 100 mg tablet, Take 100 mg by mouth daily., Disp: , Rfl: LABS AND OTHER DIAGNOSTIC TESTS No results found for: CHOL No results found for: HDL No results found for: LDLCALC No results found for: TRIG No results found for: CHOLHDL Lab Results Component Value Date HGB 11.2 (L) 09/06/2015 HCT 34.3 (L) 09/06/2015 MCV 97.6 09/06/2015 No lab exists for component: LABALBU PHYSICAL EXAM Vitals BP 130/84 (BP Location: Right arm, Patient Position: Sitting) Pulse 83 Ht 172.7 cm (5' 8 ) Wt 73 kg (161 lb) SpO2 98% BMI 24.48 kg/m?? Physical Examination: General appearance - alert, [...] Diagnoses and all orders for this visit: History of coronary artery stent placement Coronary artery disease involving [place] coronary artery of [place] heart without angina pectoris PLAN/RECOMMENDATIONS Continue current medical regimen Will have the patient go to the lab for urinalysis/urine culture and she should follow up with Dr. Greene if she is having problems with dysuria Her lipids are dramatically better than they were in January of 2018 with improvement in her diet. There is no reason to start Repatha in my opinion Jose Reddy MD IFIED HOME HEALTH AIDE documented in this encounter Miscellaneous Notes * Addendum Note - Janae Horvath MA - 10/19/2018 9:15 AM CSTAddended by: JANAE HORVATH on: 10/19/2018 09:47 AM Modules accepted: Orders IFIED HOME HEALTH AIDE * Addendum Note - Janae Horvath MA - 10/19/2018 9:15 AM CSTAddended by: JANAE HORVATH on: 10/19/2018 10:29 AM Modules accepted: Orders IFIED HOME HEALTH AIDE documented in this encounter Plan of Treatment Not on file documented as of this encounter Procedures Procedure Name Priority Date/Time Associated Diagnosis Comments POCT LIPID PANEL Routine 10/19/2018 10:2 3 AM CERTIFIED HOME HEALTH AIDE History of coronary artery stent placement Coronary artery disease involving [place] coronary artery of [place] heart without angina pectoris documented in this encounter Results * POCT lipid panel (10/19/2018 10:23 AM CERTIFIED HOME HEALTH AIDE) Cholesterol, POC 199 mg/dL HDL, POC 81 mg/dL Triglycerides, POC 142 mg/dL LDL Cholesterol POC 89 mg/dL Chol/HDL Ratio, POC 2.4 Non-HDL Cholesterol, POC 117 mg/dL Cholesterol Total, POC 199 mg/dL Blood specimen (specimen) 10/19/2018 10:23 AM CERTIFIED HOME HEALTH AIDE us Jose Reddy MD POINT OF CARE TEST ORDER ALFREDO Final Result documented in this encounter Visit Diagnoses Diagnosis History of coronary artery stent placement- Primary Coronary artery disease involving [place] coronary artery of [place] heart without angina pectoris documented in this encounter Discontinued Medications Medication Sig Discontinue Reason Start Date End Da te buPROPion XL (WELLBUTRIN XL) 150 mg 24 hr tablet Take 150 mg by mouth daily. Discontinued by another clinician 10/19/2018 sertraline (ZOLOFT) 100 mg tablet Take 100 mg by mouth daily. Discontinued by another clinician 10/19/2018 documented as of this encounter Care Teams Benzene Still Utility Operator Relationship Specialty Start Date End Date Dion Greene MD [address] [facility] [address] [place] [address] PCP - General 01/02/17 07/18/19 documented as of this encounter
--- OUTSIDE RECORDS SUMMARY | 2024-10-07 01:43 | XMS_ITS | Encounter Summary ---
Author Organization [facility] Address [address] [place] [address] Care Team Providers Care Chief Nuclear Medicine Technologist Name Role Phone Dion Greene MD Primary Care Provider [phone] Encounter Details Date Type Department Care Team (Late st Contact Info) Description 10/19/2018 Orders Only [facility] [address] [address] [address] [place] [address] ProviderReyna MD [address] [place], [place] [id number] Social History Tobacco Use Types Packs/Day Years Used Date Smoking Tobacco: Former Smokeless Tobacco: Never Alcohol Use Standard Drinks/Week Comments Yes 0 (1 standard drink = 0.6 oz pur e alcohol) Comments Unknown Sex and Gender Information Value Date Recorded Sex Assigned at Not on file Legal Sex Female 10:17 AM 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 Gender Identity Not on file Sexual Orientation Not on file documented as of this encounter Plan of Treatment Not on file documented as of this encounter Procedures Procedure Name Priority Date/Time Associated Diagnosis Comments URINALYSIS, MACROSCOPIC Routine 10/19/2018 documented in this encounter Results * Urinalysis, macroscopic Urine (10/19/2018) Urine Historical Provider LAB MICROBIOLOGY - GENERA L ORDERABLES Final Result documented in this encounter Visit Diagnoses Not on filedocumented in this encounter Care Teams Chief Nuclear Medicine Technologist Relationship Specialty Start Date End Date Dion Greene MD [address] [facility] [address] [place] [address] PCP - General 01/02/17 07/18/19 documented as of this encounter
--- OUTSIDE RECORDS SUMMARY | 2024-10-07 01:43 | XMS_ITS | Encounter Summary ---
Author Organization [facility] Address [address] [facility] [address] [place] [address] Care Team Providers Care Commissioning Agent Name Role Phone Dion Greene MD Primary Care Provider [phone] Encounter Details Date Type Department Care Team (Late st Contact Info) Description 10/06/2018 Telephone [facility] [address] [facility] [address] [place] [phone] Jose Reddy MD [address] [facility] [address] [place], [place] [id number] Social History Tobacco Use Types Packs/Day Years Used Date Smoking Tobacco: Former Smokeless Tobacco: Never Alcohol Use Standard Drinks/Week Comments Yes 0 (1 standard drink = 0.6 oz pur e alcohol) Comments Unknown Sex and Gender Information Value Date Recorded Sex Assigned at Not on file Legal Sex Female 10:17 AM PHYSICIAN LIAISON Gender Identity Not on file Sexual Orientation Not on file documented as of this encounter Ordered Prescriptions Prescription Sig Dispense Quantity Refills Last Filled Start Date End Date rosuvastatin (CRESTOR) 20 mg tabletIndications: Coronary artery disease involving [place] coronary artery of [place] heart without angina pectoris Take 1 tablet (20 mg total) by mouth daily. 90 tablet 1 10/06/2018 02/25/2019 documented in this encounter Miscellaneous Notes * Telephone Encounter - Agnes Benoit MA - 10/06/2018 3:10 PM CST Refills approved and sent to pharmacy as requested. ICIAN LIAISON * Telephone Encounter - Milagro Dillard - 10/06/2018 12:31 PM PHYSICIAN LIAISON Pt called requesting 90 day supply with three refills for rosuvastatin 20 mg be sent to [facility] [phone] ICIAN LIAISON documented in this encounter Plan of Treatment Not on file documented as of this encounter Visit Diagnoses Diagnosis Coronary artery disease involving [place] coronary artery of [place] heart without angina pectoris documented in this encounter Discontinued Medications Medication Sig Discontinue Reason Start Date End Da te rosuvastatin (CRESTOR) 20 mg tabletIndications:Pimentel ry artery disease involving [place] coronary artery of [place] heart without angina pectoris Take 1 tablet (20 mg total) by mouth daily. Reorder 01/21/2018 10/06/2018 documented as of this encounter Care Teams Commissioning Agent Relationship Specialty Start Date End Date Dion Greene MD [address] [facility] [address] [facility] [address] [place] [address] PCP - General 01/02/17 07/18/19 documented as of this encounter
--- OUTSIDE RECORDS SUMMARY | 2024-10-07 01:43 | XMS_ITS | Encounter Summary ---
Author Organization [facility] Address [address] [place] [address] Care Team Providers Care Termite Treater Helper Name Role Phone Van Gonzales DO Primary Care Provider Encounter Details Date Type Department Care Team (Late st Contact Info) Description 08/09/2021 Telephone [facility] Cardiology [address] [facility] [address] [place] [address] Jose Reddy MD [address] [place] [address] Social History Tobacco Use Types Packs/Day Years Used Date Smoking Tobacco: Former Smokeless Tobacco: Never Alcohol Use Standard Drinks/Week Comments Yes 0 (1 standard drink = 0.6 oz pur e alcohol) Comments Unknown Sex and Gender Information Value Date Recorded Sex Assigned at Not on file Legal Sex Female 10:17 AM PODIATRY ASSISTANT Gender Identity Not on file Sexual Orientation Not on file documented as of this encounter Miscellaneous Notes * Telephone Encounter - Michelle Knox RN - 08/13/2021 2:16 PM PODIATRY ASSISTANT LM on reviewing message from [facility]-advised pt to callback with any questions or concerns. ATRY ASSISTANT * Telephone Encounter - Jose Reddy MD - 08/13/2021 2:06 PM PODIATRY ASSISTANT The patient's chart and the question have been reviewed. I would prefer that she does not take an appetite suppressant. ATRY ASSISTANT * Telephone Encounter - Michelle Knox RN - 08/09/2021 4:30 PM CDT Pt called and said she forgot to ask MJF yesterday if she can take an over the counter appetite suppressant? Pt didn't have anything specific in mind but wanted to know if it was safe with her history? Will forward to [facility] Please advise, thank you! * Telephone Encounter - Vidhi Gao - 08/09/2021 2:13 PM CDT Pt called states she has been gaining weight and is wanting to know if it is okay to get an over the counter appetite suppressant. Please advise. Thank you. Contact: documented in this encounter Plan of Treatment Not on file documented as of this encounter Visit Diagnoses Not on filedocumented in this encounter Care Teams Termite Treater Helper Relationship Specialty Start Date End Date Van Gonzales DO PCP - General Internal Medicine 07/19/19 03/04/23 documented as of this encounter
--- OUTSIDE RECORDS SUMMARY | 2024-10-07 01:43 | XMS_ITS | Encounter Summary ---
Author Organization [facility] Address [address] [facility] [address] [place] [address] Care Team Providers Care Chief Ophthalmic Technician Name Role Phone Dion Greene MD Primary Care Provider [phone] Encounter Details Date Type Department Care Team (Late st Contact Info) Description 01/06/2019 Telephone [facility] [address] [facility] [address] [place] [phone] Jose Reddy MD [address] [facility] [address] [place] [address] Social History Tobacco Use Types Packs/Day Years Used Date Smoking Tobacco: Former Smokeless Tobacco: Never Alcohol Use Standard Drinks/Week Comments Yes 0 (1 standard drink = 0.6 oz pur e alcohol) Comments Unknown Sex and Gender Information Value Date Recorded Sex Assigned at Not on file 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 States that she is having occasional chest pain and fast heart rates that comesand goes. She is scared due to her cardiac history but feels it may be anxiety related due to her loosing her sister recently unexpectedly. Wondering if she should come in for an EKG. Explained to patient that she should make an appointment with either Dr. Reddy or Xochilt, Structurer to determine the appropriate test for her. Patient requesting to come in today if possible. Scheduled appt with this afternoon. * Telephone Encounter - Milagro Dillard - 01/06/2019 10:03 AM CDT Pt recently lost her sister and has been experiencing a fast HR, pt is requesting to have a EKG. Ptwants a call back to discuss. [phone] documented in this encounter Plan of Treatment Not on file documented as of this encounter Visit Diagnoses Not on filedocumented in this encounter Care Teams Chief Ophthalmic Technician Relationship Specialty Start Date End Date Dion Greene MD [address] [facility] [address] [place], [place] [id number] PCP - General 01/02/17 07/18/19 documented as of this encounter
--- OUTSIDE RECORDS SUMMARY | 2024-10-07 01:43 | XMS_ITS | Encounter Summary ---
Author Organization [facility] Address [address] [place] [address] Care Team Providers Care Windows Systems Admin Name Role Phone Van Gonzales DO Primary Care Provider [phone] Encounter Details Date Type Department Care Team (Late st Contact Info) Description 08/27/[address] 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 OUTFITTER * Telephone Encounter - Kelsea Pillai - 08/27/2020 4:01 PM CST Patient/and or Pharmacy calling to request refills on the following medications: Rosuvastatin 20 mg 90 day supply Pt has made an appt.09-04-2020 Pt is completley out of her medication Pharmacy[place] [facility] [place] [phone] OUTFITTER OUTFITTER documented in this encounter Plan of Treatment Not on file documented as of this encounter Visit Diagnoses Diagnosis Coronary artery disease involving [place] coronary artery of [place] heart without angina pectoris documented in this encounter Discontinued Medications Medication Sig Discontinue Reason Start Date End Da te rosuvastatin (CRESTOR) 20 mg tabletIndications:Pimentel ry artery disease involving [place] coronary artery of [place] heart without angina pectoris Take 1 tablet by mouth once daily Reorder 05/07/2020 08/27/2020 documented as of this encounter Care Teams Windows Systems Admin Relationship Specialty Start Date End Date Van Gonzales DO PCP - General Internal Medicine 07/19/19 03/04/23 documented as of this encounter
--- OUTSIDE RECORDS SUMMARY | 2024-10-07 01:43 | XMS_ITS | Encounter Summary ---
Author Organization [facility] Medical [facility] Address [address] [place] [address] Care Team Providers Care Director Systems Name Role Phone Van Gonzales DO Primary Care Provider [phone] Reason for Visit * Reason Comments Coronary Artery Disease Encounter Details Date Type Department Care Team (Late st Contact Info) Description 08/08/2021 11:30 AM CDT Office Visit [facility] Cardiology [address] [place] [id number] Jose Reddy MD [address] [facility] [address] [place] [address] Coronary artery disease involving [place] coronary artery of [place] heart without angina pectoris (Primary Dx); History of coronary artery stent placement Social History Tobacco Use Types Packs/Day Years Used Date Smoking Tobacco: Former Smokeless Tobacco: Never Alcohol Use Standard Drinks/Week Comments Yes 0 (1 standard drink = 0.6 oz pur e alcohol) Comments Unknown Sex and Gender Information Value Date Recorded Sex Assigned at Not on file Legal Sex Female 10:17 AM SONOGRAPHER Gender Identity Not on file Sexual Orientation Not on file documented as of this encounter Last Filed Vital Signs Vital Sign Reading Time Taken Comments Blood Pressure 142/80 08/08/2021 11:25 AM CDT Pulse 102 08/08/2021 11:25 AM CDT Temperature - - Respiratory Rate - - Oxygen Saturation 97% 08/08/2021 11:25 AM CDT Inhaled Oxygen Concentration - - Weight 85.3 kg (188 lb) 08/08/2021 11:25 AM CDT Height 172.7 cm (5' 8 ) 08/08/2021 11:25 AM CDT Body Mass Index 28.59 08/08/2021 11:25 AM CDT documented in this encounter Progress Notes * Jose Reddy MD - 08/08/2021 11:30 AM CDT [facility] FOLLOW UP 08/08/2021 Lisbet Alejandro is a 56 y.o. female who presents for follow up of coronary artery disease. This is a patient who presented in December of 2014 with acute inferior wall infarction. She underwent emergency right coronary intervention involving PTCA and stenting of the 2nd portion of the artery. She receiveda 3 x 23 mm L [place] drug-eluting stent with a nice anatomical result. She returns to the office today for annual follow-up. Her last visit was on the telephone because of the pandemic. She informs me that her PCP is advanced her rosuvastatin dosage to 40 mg daily. She states that she was not happy about having to raise the dosage and she thinks it is causing her to gain weight. She is asking about dietary advice and about lipid management advice. She is having her lipids checked again in the next week or 2 prior to her next follow-up appointment. REVIEW OF SYSTEMS General ROS: negative for [...] route once, Disp: 0, Rfl: 0 ??? Nucynta ER 50 mg 12 hr tablet, Take 50 mg by mouth every 12 (twelve) hours, Disp: , Rfl: ??? oxyCODONE-acetaminophen (PERCOCET) 10-325 mg per tablet, take 1 tablet by oral route every 6 hours as needed, Disp: 0, Rfl: 0 ??? pantoprazole DR (PROTONIX) 40 mg EC tablet, , Disp: , Rfl: ??? rosuvastatin (CRESTOR) 40 mg tablet, , Disp: , Rfl: LABS AND OTHER DIAGNOSTIC TESTS No results found for: CHOL No results found for: HDL No results found for: LDLCALC No results found for: TRIG No results found for: CHOLHDL Lab Results Component Value Date HGB 11.2 (L) 09/06/2015 HCT 34.3 (L) 09/06/2015 MCV 97.6 09/06/2015 No lab exists for component: LABALBU PHYSICAL EXAM Vitals BP 142/80 (BP Location: Right arm, Patient Position: Sitting) Pulse 102 Ht 172.7 cm (5' 8 ) Wt 85.3 kg (188 lb) SpO2 97% BMI 28.59 kg/m?? Physical Examination: General appearance - alert, [...] noted ASSESSMENT Lisbet was seen today for coronary artery disease. Diagnoses and all orders for this visit: Coronary artery disease involving [place] coronary artery of [place] heart without angina pectoris History of coronary artery stent placement PLAN/RECOMMENDATIONS Continue current medical regimen If her LDL is still above target I would recommend reducing her Crestor back to 20 mg and adding Zetia 10 mg daily We will continue to see her at annual intervals or p.r.n. Jose Reddy MD documented in this encounter Plan of Treatment Not on file documented as of this encounter Procedures Procedure Name Priority Date/Time Associated Diagnosis Comments LIPID PANEL Routine 04/01/2021 documented in this encounter Results * Lipid panel (04/01/2021) SCRIBED Cholesterol, Total 246 <200 [facility] SCRIB[facility] HDL 44 >40 [facility] SCRIB[facility] LDL 144 <100 [facility] SCRIB[facility] Triglycerides 380 <150 [facility] Blood specimen (specimen) us Historical Provider LAB BLOOD ORDERABLES Giovanna duarte Result [facility] documented in this encounter Visit Diagnoses Diagnosis Coronary artery disease involving [place] coronary artery of [place] heart without angina pectoris- Primary History of coronary artery stent placement documented in this encounter Discontinued Medications Medication Sig Discontinue Reason Start Date End Da te rosuvastatin (CRESTOR) 20 mg tabletIndications:Pimentel ry artery disease involving [place] coronary artery of [place] heart without angina pectoris Take 1 tablet by mouth once daily Dose adjustment 03/22/2021 08/08/2021 documented as of this encounter Historical Medications * This list may reflect changes made after this encounter. pantoprazole DR (PROTONIX) 40 mg EC tablet 08/05/2021 rosuvastatin (CRESTOR) 40 mg tablet 0.5 tablets (20 mg total) 08/05/2021 Nucynta ER 50 mg 12 hr tablet Take 50 mg by mouth every 12 (twelve) hours 07/19/2021 08/14/2022 added in this encounter Care Teams Director Systems Relationship Specialty Start Date End Date Van Gonzales DO PCP - General Internal Medicine 07/19/19 03/04/23 documented as of this encounter
--- OUTSIDE RECORDS SUMMARY | 2024-10-07 01:43 | XMS_ITS | Encounter Summary ---
Author Organization [facility] Facility Care Team Providers Care Engineering Program Analyst Name Role Phone Dion Greene MD Primary Care Provider [phone] Encounter Details Date Type Department Care Team (Latest Contact Info) Description 09/06/2015 10:31 AM WIND OPERATIONS MANAGER - 09/07/2015 12:14 PM WIND OPERATIONS MANAGER Hospital Encounter 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 Social History Tobacco Use Types Packs/Day Years Used Date Smoking Tobacco: Former Alcohol Use Standard Drinks/Week Comments Yes 0 (1 standard drink = 0.6 oz pur e alcohol) Comments Unknown Sex and Gender Information Value Date Recorded Sex Assigned at Not on file Legal Sex Female 10:17 AM WIND OPERATIONS MANAGER Gender Identity Not on file Sexual Orientation Not on file documented as of this encounter Last Filed Vital Signs Vital Sign Reading Time Taken Comments Blood Pressure 141/82 09/07/2015 8:30 AM WIND OPERATIONS MANAGER Pulse 84 09/07/2015 8:30 AM WIND OPERATIONS MANAGER Temperature - - Respiratory Rate - - Oxygen Saturation 97% 09/07/2015 8:30 AM WIND OPERATIONS MANAGER Inhaled Oxygen Concentration - - Weight 74.8 kg (164 lb 15.9 oz) 09/06/2015 5:34 PM WIND OPERATIONS MANAGER Height 172.7 cm (5' 8 ) 09/06/2015 5:34 PM WIND OPERATIONS MANAGER Body Mass Index 25.09 09/06/2015 5:34 PM WIND OPERATIONS MANAGER documented in this encounter Medications at Time of Discharge multivitamin tablet tablet take 1 by Oral route once 0 0 06/29/2015 atorvastatin (LIPITOR) 40 mg tablet take 1 tablet by oral route every day 30 5 05/01/2015 11/06/2017 clopidogrel (PLAVIX) 75 mg tablet TAKE ONE TABLET BY MOUTH ONCE DAILY 30 5 06/29/2015 01/21/2018 escitalopram (LEXAPRO) 20 mg tablet take 1 tablet by oral route every day 0 0 12/29/2014 01/21/2018 oxyCODONE-acetami nophen (PERCOCET) 10-325 mg per tablet take 1 tablet by oral route every 6 hours as needed 0 0 12/29/2014 09/09/2024 documented as of this encounter Miscellaneous Notes * Op Note - Provider, MD Reyna - 09/06/2015 12:00 AM CST Patient: LISBET ALEJANDRO Reg No: [id number] U H #: [id number] Admit Dt.: 09/06/2015 : 1965 Pt Type: ABS Room No: OTHER-00 Attending: Dany Brennan M.D. Surgeon: Dany Brennan M.D. Dictating: Dany Brennan M.D. Service Dt: 09/06/2015 OPERATIVE REPORT FIRST COLLAR BAND CREASER: Cyrus Muñoz M.D. SECOND/THIRD COLLAR BAND CREASER: Rosa Crews MD ANESTHESIA: General. PREOPERATIVE DIAGNOSIS (ES): Left neck mass. POSTOPERATIVE DIAGNOSIS (ES): Left branchial cleft cyst type 2. NAME OF OPERATION: 1. Left neck mass excision consistent with brachial cleft cyst. 2. Left selective neck dissection, levels 2 and 3. INDICATIONS FOR PROCEDURE: Ms. Alejandro has a history of a left neck mass that had an irrigation and drainage at an outside facility. It persisted after this despite antibiotics. Therefore a repeat FNA was performed which showed benign squamous cells, but this could be consistent with squamous cell carcinoma. Therefore, it was decided to take her to the operating room for an excision of the cystic neck mass with possible neck dissection depending on the pathology. She signed the informed consent. DESCRIPTION OF PROCEDURE: She was taken to the main operating room. She was intubated and sedated by the anesthesia team. She was handed over to the surgical team. The incision site where her prior incision was marked in an ellipse to excise her prior scar. This was then injected with 3 mL of 1% lidocaine with epinephrine. She was prepped and draped in the normal sterile fashion. After a final time out verification confirming a left sided procedure, the incision was made in an elliptical fashion around the prior scar with a #15 blade scalpel through the skin, subcutaneous tissue and platysma. The scar was sent for permanent specimen. Very small subplatysmal flaps were elevated superiorly and inferiorly with a #15 blade scalpel. The lateral border of the sternocleidomastoid muscle was skeletonized bluntly down to cranial nerve 11. This was traced anteriorly to the digastric muscle. The fascia on the inferior aspect of the submandibular gland was then incised and the cystic mass was identified in the level 2 area in the jugulodigastric region and it was bluntly dissected circumferentially and sent for frozen section. While this was out in frozen section there were three or four very large lymph nodes in this area that are concerning for pathology. Therefore, they were dissected out off of the carotid sheath structures including the jugular vein with blunt dissection and incising the fascia down to the floor of the neck. This was then transected at the level 3 region with sharp dissection and bipolar electrocautery and elevated off of the floor of the neck up to the spinal accessory nerve. Level 2B was not dissected in this area. It remained in place in order to not injure cranial nerve 11. The fatty contents with these three nodes were then taken out and one was sent for frozen section, the largest. It was benign. Therefore, the other two were sent for permanent section with the surrounding fatty contents of levels 2-3. The firmest mass that was deep overlying the spinal accessory nerve came back as a benign epithelial line cyst consistent with a brachial cleft cyst with surrounding inflammatory response, likely from the prior incision and drainage. Therefore, the wound was copiously irrigated. Hemostasis was achieved with bipolar electrocautery and a 7-Flat ASHLEY Drain was placed into the wound. It was closed with 3-0 Vicryl deep sutures and Dermabond for the skin. The patient tolerated this well. She was extubated and handed over to anesthesia for extubation in stable condition. At the end of the case all counts were correct. I was present and scrubbed for the entirety of this procedure. Electronically Authenticated and Edited by: Dany Brennan MD On 09/10/2015 01:13 PM WIND OPERATIONS MANAGER Dany Brennan M.D. RJS:ayla #[id number] Editing MT: [email or web address] TD: 09/06/2015 02:38 PM cc: Xavi Gamez M.D. Jennifer Gross, M.D. documented in this encounter Plan of Treatment Not on file documented as of this encounter Procedures Procedure Name Priority Date/Time Associated Diagnosis Comments DISCHARGE LABORATORY CUMULATIVE REPORT 09/07/2015 PLASMA BASIC METABOLIC PANEL Routine 09/06/2015 11:00 PM WIND OPERATIONS MANAGER BLOOD CELL COUNT (CBC) Routine 09/06/2015 11:00 PM WIND OPERATIONS MANAGER BLOOD ABO, RH, INDIRECT AB SCREEN Routine 09/06/2015 11:16 AM WIND OPERATIONS MANAGER SURGICAL PATHOLOGY 09/06/2015 documented in this encounter Results * DISCHARGE LABORATORY CUMULATIVE REPORT (09/07/2015) Narrative 09/07/2015 Ordered by an unspecified provider. us Historical Provider LAB BLOOD ORDERABLES Giovanna l Result * Plasma basic metabolic panel (09/06/2015 11:00 PM WIND OPERATIONS MANAGER) Sodium 136 135 - 145 mmol/L HISTORICAL RESULTS K, pl 4.7 3.3 - 4.9 mmol/L HISTORICAL RESULTS Chloride 99 97 - 110 mmol/L HISTORICAL RESULTS CO2 26 22 - 32 mmol/L HISTORICAL RESULTS A. gap 11 0 - 16 mmol/L HISTORICAL RESULTS Glucose 146 70 - 199 mg/dl HISTORICAL RESULTS BUN 8 8 - 25 mg/dl HISTORICAL RESULTS Creatinine 0.76 0.60 - 1.10 mg/dl HISTORICAL RESULTS Calcium 9.6 8.6 - 10.3 mg/dl HISTORICAL RESULTS Plasma 09/06/2015 11:0 0 PM WIND OPERATIONS MANAGER us Rosa Crews MD LAB BLOOD ORDERABLES Final Result HISTORICAL RESULTS * (ABNORMAL) Blood cell count (CBC) (09/06/2015 11:00 PM WIND OPERATIONS MANAGER) WBC 6.8 3.8 - 9.8 K/cumm HISTORICAL RESULTS RBC 3.52(L) 3.90 - 5.00 M/cumm HISTORICAL RESULTS Hgb 11.2(L) 12.1 - 15.1 g/dl HISTORICAL RESULTS Hct 34.3(L) 36.1 - 44.3 % HISTORICAL RESULTS MCV 97.6 80.0 - 97.6 fl HISTORICAL RESULTS MCH 31.8 26.7 - 33.7 pg HISTORICAL RESULTS MCHC 32.6(L) 32.7 - 35.5 g/dl HISTORICAL RESULTS Rdw 12.4 11.8 - 14.6 % HISTORICAL RESULTS Platelets 271 140 - 440 K/cumm HISTORICAL RESULTS MPV 7.3 6.8 - 10.4 fl HISTORICAL RESULTS Neutrophils 85.6(H) 38.7 - 74.5 % HISTORICAL RESULTS Lymphocytes 11.1(L) 20.0 - 54.3 % HISTORICAL RESULTS Monos 3.2(L) 4.3 - 13.5 % HISTORICAL RESULTS Eosinophils 0.0 0.0 - 6.0 % HISTORICAL RESULTS Basophils 0.1 0.0 - 3.0 % HISTORICAL RESULTS Neutrophils, abs 5.8 1.8 - 6.6 K/cumm HISTORICAL RESULTS Lymphocytes, abs 0.7(L) 1.2 - 3.3 K/cumm HISTORICAL RESULTS Monocytes, absolute 0.2 0.2 - 1.2 K/cumm HISTORICAL RESULTS Eosinophils, abs 0.0 0.0 - 0.5 K/cumm HISTORICAL RESULTS Basophils, abs 0.0 0.0 - 0.2 K/cumm HISTORICAL RESULTS Blood specimen (specimen) 09/06/2015 11:00 PM WIND OPERATIONS MANAGER us Rosa Crews MD LAB BLOOD ORDERABLES Final Result Performing Organization Address [facility] Co de Phone Number HISTORICAL RESULTS * Blood ABO, Rh, indirect ab screen (09/06/2015 11:16 AM WIND OPERATIONS MANAGER) ABO, Rho(D) O Negative HISTORI CATHY RESULTS Yumi, indirect Negative HISTORICAL RESULTS Blood specimen (specimen) 09/06/2015 11:16 AM WIND OPERATIONS MANAGER Dany Brennan MD LAB BLOOD ORDERABLES Final Result Performing Organization Address [facility] de Phone Number HISTORICAL RESULTS * Surgical pathology (09/06/2015) Narrative 09/06/2015 Ordered by an unspecified provider. 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
--- OUTSIDE RECORDS SUMMARY | 2024-10-07 01:43 | XMS_ITS | Encounter Summary ---
Author Organization [facility] Address [address] [facility] [address] [place] [address] Care Team Providers Care Journalism Instructor Name Role Phone Dion Greene MD Primary Care Provider [phone] Reason for Referral * Cardiology (Routine) - Closed Specialty Diagnoses / Procedures Referred By Contac t Referred To Contact Diagnoses Coronary artery disease involving redding coronary artery of redding heart without angina pectoris Procedures Echo Exercise Stress Test Only Jose Reddy MD Phone: tel: fax: External Order Referral ID Status Reason Start Date Expiration Date Visits Re quested Visits Authorized [id number] Closed 01/06/2019 07/17/2020 1 1 Reason for Visit * Reason Comments Follow-up chest pain Encounter Details Date Type Department Care Team (Late st Contact Info) Description 01/06/2019 11:15 AM CDT Office Visit [facility] [address] [facility] [address] [address] Jose Reddy MD [address] [place] [id number] Coronary artery disease involving redding coronary artery of redding heart without angina pectoris (Primary Dx); History of coronary artery stent placement Social History Tobacco Use Types Packs/Day Years Used Date Smoking Tobacco: Former Smokeless Tobacco: Never Alcohol Use Standard Drinks/Week Comments Yes 0 (1 standard drink = 0.6 oz pur e alcohol) Comments Unknown Sex and Gender Information Value Date Recorded Sex Assigned at Not on file 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 Gender Identity Not on file Sexual Orientation Not on file documented as of this encounter Last Filed Vital Signs Vital Sign Reading Time Taken Comments Blood Pressure 140/90 01/06/2019 11:34 AM CDT Pulse 78 01/06/2019 11:34 AM CDT Temperature - - Respiratory Rate - - Oxygen Saturation 98% 01/06/2019 11:34 AM CDT Inhaled Oxygen Concentration - - Weight 75.8 kg (167 lb) 01/06/2019 11:34 AM CDT Height 172.7 cm (5' 8 ) 01/06/2019 11:34 AM CDT Body Mass Index 25.39 01/06/2019 11:34 AM CDT documented in this encounter Progress Notes * Jose Reddy MD - 01/06/2019 11:15 AM CDT [facility] FOLLOW UP 01/06/2019 Lisbet Alejandro is a 53 y.o. female who presents for follow up of coronary artery disease. This is a patient who presented in December of 2014 with acute inferior wall infarction. She underwent emergency right coronary intervention involving PTCA and stenting of the 2nd portion of the artery. She receiveda 3 x 23 mm L Molena drug-eluting stent with a nice anatomical result. She returns today to the office for scheduled follow-up. The patient is being seen today earlier than scheduled because she was calling the office reporting symptoms of chest pain. A 12 lead ECG was therefore done when she checked in for the appointment which was personally reviewed by myself and is completely normal. The patient has been under a great deal of stress his about 2 weeks ago her sister suddenly at home she did have a chronic lung disease but no obvious cardiac problems there was no autopsy or cause of established as far as I can tell but since then she has been extremely stressed about this and has been having episodes of intermittent nonexertional chest tightness. REVIEW OF SYSTEMS General ROS: negative for [...] daily., Disp: 90 tablet, Rfl: 1 ??? ALPRAZolam (XANAX) 0.25 mg tablet, 1 tablet 3 (three) times a day as needed, Disp: , Rfl: 0 ??? CHANTIX STARTING MONTH BOX 0.5 mg (11)- 1 mg (42) tablet, 1 tablet daily, Disp: , Rfl: LABS AND OTHER DIAGNOSTIC TESTS No results found for: CHOL No results found for: HDL No results found for: LDLCALC No results found for: TRIG No results found for: CHOLHDL Lab Results Component Value Date HGB 11.2 (L) 09/06/2015 HCT 34.3 (L) 09/06/2015 MCV 97.6 09/06/2015 No lab exists for component: LABALBU PHYSICAL EXAM Vitals BP 140/90 (BP Location: Right arm, Patient Position: Sitting) Pulse 78 Ht 172.7 cm (5' 8 ) Wt 75.8 kg (167 lb) SpO2 98% BMI 25.39 kg/m?? Physical Examination: General appearance - alert, [...] for this visit: Coronary artery disease involving redding coronary artery of redding heart without angina pectoris History of coronary artery stent placement PLAN/RECOMMENDATIONS Continue current medical regimen Will have the patient go to the lab for urinalysis/urine culture and she should follow up with Dr. Greene if she is having problems with dysuria Her lipids are dramatically better than they were in January of 2018 with improvement in her diet. There is no reason to start Repatha in my opinion Jose Reddy MD documented in this encounter Miscellaneous Notes * Addendum Note - Janae Horvath MA - 01/06/2019 11:15 AM CDTAddended by: JANAE HORVATH on: 01/07/2019 01:42 PM Modules accepted: Orders documented in this encounter Plan of Treatment Not on file documented as of this encounter Procedures Procedure Name Priority Date/Time Associated Diagnosis Comments ECG 12-LEAD Routine 01/07/2019 Coronary artery disease involving redding coronary artery of redding heart without angina pectoris documented in this encounter Results * STRESS ECHO EXERCISE WO DOPPLER/CF WO CONTRAST (01/18/2019 10:59 AM CDT) Anatomical Region Laterality Modality Ultrasound 01/18/2019 10:0 5 AM CDT Narrative 01/18/2019 5:31 PM CDT [facility] [address] [facility] [address] [address] [address] [facility] [address] [address] P:[phone] P:[phone] Echocardiographic Report Patient Name: LISBET ALEJANDRO : [birth year] Study Date: 01/18/2019 10:05:53 AM Gender: F Tech: Location: [place] Ref.Provider: TRISTAN Height(Cm): 173 BSA: 1.89 Weight(Kg): 75.75 Heart Rate: 91 BP: 118/70 Quality: Good Order Provider: JOSE REDDY Procedures: Stress Echo Report: Treadmill stress echocardiogram. Indications: Coronary Artery Disease. Findings: Stress Echo: Protocol - Alessandro Protocol. Exercise Time - 7.00 min. Baseline Heart Rate - 91. Peak Heart Rate - 170. Predicted Maximal Heart Rate - 165. 85% MPHR - 140. Baseline BP - 118/70. Peak BP - 200/80. Rate Pressure Product - 76354. METS Achieved - 10.10. Percent Predicted Maximal HR Achieved - 103 %. Interpretation Site: Exam was interpreted at [facility]. Performance: Average exercise functional capacity. Hemodynamic Response: Normal blood pressure response. Arrhythmia: No exercise induced arrhythmias. Termination: Fatigue. Limiting Dyspnea. Resting ECG: Normal EKG. Exercise ECG: Non-diagnostic ST-T wave changes with exercise. Resting LV Function: Normal left ventricular size, normal systolic function, normal wall thickness with no segmental wall motion abnormalities at rest. Post Stress LV Function: Post exercise left ventricular global systolic contractility is hyperdynamic, no segmental wall motion abnormalities, and chamber size is smaller. Conclusions: Protocol - Alessandro Protocol. Exercise Time - 7.00 min. Baseline Heart Rate - 91. Peak Heart Rate - 170. Predicted Maximal Heart Rate - 165. 85% MPHR - 140. Baseline BP - 118/70. Peak BP - 200/80. Rate Pressure Product - [id number]. METS Achieved - 10.10. Percent Predicted Maximal HR Achieved - 103 %. Normal EKG. Non-diagnostic ST-T wave changes with exercise. Normal left ventricular size, normal systolic function, normal wall thickness with no segmental wall motion abnormalities at rest. Post exercise left ventricular global systolic contractility is hyperdynamic, no segmental wall motion abnormalities, and chamber size is smaller. Stress echocardiogram negative for inducible ischemia at MPHR: 103 %. Electronically Signed By: Jose Reddy MD, [facility] 2019-01-18 17:31:39 CDT Procedure Note Jose Reddy MD - 01/18/2019 [facility] [address] [address] [address] [facility] [address] [address] P:[phone] P:[phone] Echocardiographic Report Patient Name: LISBET ALEJANDROPatient ID: [id number] : [id number] Date: 01/18/2019 10:05:53 AM Gender: FAccession #: [id number] Tech: GMLocation: [place] Ref.Provider: Yazmin(Cm): 173 BSA: 1.89Weight(Kg): 75.75 Heart Rate: 91BP: 118/70 Quality: GoodOrder Provider: JOSE REDDY Procedures: Stress Echo Report: Treadmill stress echocardiogram. Indications: Coronary Artery Disease. Findings: Stress Echo: Protocol - Alessandro Protocol. Exercise Time - 7.00 min. Baseline Heart Rate -91. Peak Heart Rate - 170. Predicted Maximal Heart Rate - 165. 85% MPHR - 140. BaselineBP - 118/70. Peak BP - 200/80. Rate Pressure Product - [id number]. METS Achieved - 10.10.Percent Predicted Maximal HR Achieved - 103 %. Interpretation Site: Exam was interpreted at [facility]. Performance: Average exercise functional capacity. Hemodynamic Response: Normal blood pressure response. Arrhythmia: No exercise induced arrhythmias. Termination: Fatigue. Limiting Dyspnea. Resting ECG: Normal EKG. Exercise ECG: Non-diagnostic ST-T wave changes with exercise. Resting LV Function: Normal left ventricular size, normal systolic function, normal wallthickness with no segmental wall motion abnormalities at rest. Post Stress LV Function: Post exercise left ventricular global systolic contractility ishyperdynamic, no segmental wall motion abnormalities, and chamber size is smaller. Conclusions: Protocol - Alessandro Protocol. Exercise Time - 7.00 min. Baseline Heart Rate -91. Peak Heart Rate - 170. Predicted Maximal Heart Rate - 165. 85% MPHR - 140. BaselineBP - 118/70. Peak BP - 200/80. Rate Pressure Product - [id number]. METS Achieved - 10.10.Percent Predicted Maximal HR Achieved - 103 %. Normal EKG. Non-diagnostic ST-T wave changes with exercise. Normal left ventricular size, normal systolic function, normal wallthickness with no segmental wall motion abnormalities at rest. Post exercise left ventricular global systolic contractility ishyperdynamic, no segmental wall motion abnormalities, and chamber size is smaller. Stress echocardiogram negative for inducible ischemia at MPHR: 103 %. Electronically Signed By: Jose Reddy MD, [facility] 2019-01-18 17:31:39 CDT Jose Reddy MD CV ECHO PROCEDURES Final Result * ECG 12 lead (01/07/2019) Jose Reddy MD ECG ORDERABLES Final Re sult documented in this encounter Visit Diagnoses Diagnosis Coronary artery disease involving redding coronary artery of redding heart without angina pectoris- Primary History of coronary artery stent placement Coronary artery disease involving redding coronary artery of redding heart without angina pectoris documented in this encounter Historical Medications * This list may reflect changes made after this encounter. ALPRAZolam (XANAX) 0.25 mg tablet 1 tablet 3 (three) times a day as needed 0 01/03/2019 09/04/2020 CHANTIX STARTING MONTH BOX 0.5 mg (11)- 1 mg (42) tablet 1 tablet daily 12/31/2018 07/19/2019 added in this encounter Care Teams Journalism Instructor Relationship Specialty Start Date End Date Dion Greene MD [address] [facility] [address] [facility] [address] [place] [address] PCP - General 01/02/17 07/18/19 documented as of this encounter
--- OUTSIDE RECORDS SUMMARY | 2024-10-07 01:43 | XMS_ITS | Encounter Summary ---
Author Organization [facility] Address [address] [facility] [address] [place] [address] Care Team Providers Care Rn Resource Nurse Name Role Phone Van Gonzales DO Primary Care Provider [phone] Encounter Details Date Type Department Care Team (Late st Contact Info) Description 01/09/2022 Telephone [facility] Cardiology [address] [place] [address] Jose Reddy MD [address] [place], [place] [id number] Social History Tobacco Use Types Packs/Day Years Used Date Smoking Tobacco: Former Smokeless Tobacco: Never Alcohol Use Standard Drinks/Week Comments Yes 0 (1 standard drink = 0.6 oz pur e alcohol) Comments Unknown Sex and Gender Information Value Date Recorded Sex Assigned at Not on file 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 Called pt and LM on informing her of this information. Advised her to contact her PCP to see if he had any other options. * Telephone Encounter - Michelle Knox RN - 01/10/2022 9:39 AM CDT LM on for Ria to callback. * Telephone Encounter - Michelle Knox RN - 01/09/2022 3:24 PM CDT Called the [facility] and Ria is gone for the day will call her back in the am [phone]. * Telephone Encounter - Michelle Knox RN - 01/09/2022 10:47 AM CDT Spoke with pt, she has gained 40 pounds in the last 2 years and is requesting referral to automotive upholsterer-told her I would check with [facility] to see if services are available and send referral. Pt verbalized understanding and appreciated the assistance. Tried calling the wellness center but no answer-will try again later. * Telephone Encounter - Anibal Xiong - 01/09/2022 9:44 AM CDT Pt asking if we have Dietitians we refer to.Please advise,Thank you Contact:[phone] documented in this encounter Plan of Treatment Not on file documented as of this encounter Visit Diagnoses Not on filedocumented in this encounter Care Teams Rn Resource Nurse Relationship Specialty Start Date End Date Van Gonzales DO PCP - General Internal Medicine 07/19/19 03/04/23 documented as of this encounter
--- OUTSIDE RECORDS SUMMARY | 2024-10-07 01:43 | XMS_ITS | Encounter Summary ---
Author Organization [facility] Facility Care Team Providers Care Log Data Technician Name Role Phone Dion Greene MD Primary Care Provider [phone] Encounter Details Date Type Department Care Team (Latest Contact Info) Description 08/29/2015 1:35 PM ELECTRONIC PAGE MAKEUP SYSTEM OPERATOR - 08/29/2015 4:00 PM [facility] Hospital [facility] [address] [address] [place] [address] Encounter for preprocedural laboratory examination; Encounter for preprocedural cardiovascular examination; Localized swelling, mass or lump of neck; Hyperlipidemia; Atherosclerotic heart disease of [place] coronary artery without angina pectoris Social History Tobacco Use Types Packs/Day Years Used Date Smoking Tobacco: Former Alcohol Use Standard Drinks/Week Comments Yes 0 (1 standard drink = 0.6 oz pur e alcohol) Comments Unknown Sex and Gender Information Value Date Recorded Sex Assigned at Not on file Legal Sex Female 10:17 AM [facility] Gender Identity Not on file Sexual Orientation Not on file documented as of this encounter Medications at Time of Discharge [...] 12/29/2014 09/09/2024 documented as of this encounter Plan of Treatment Not on file documented as of this encounter Procedures Procedure Name Priority Date/Time Associated Diagnosis Comments PLASMA BASIC METABOLIC PANEL Routine 08/29/2015 3:45 PM ELECTRONIC PAGE MAKEUP SYSTEM OPERATOR BLOOD CELL COUNT Routine 08/29/2015 3:45 PM ELECTRONIC PAGE MAKEUP SYSTEM OPERATOR BLOOD ABO, RH, INDIRECT AB SCREEN Routine 08/29/2015 3:45 PM ELECTRONIC PAGE MAKEUP SYSTEM OPERATOR ELECTROCARDIOGRAPHY (ECG) 08/29/2015 DISCHARGE LABORATORY CUMULATIVE REPORT 08/29/2015 documented in this encounter Results * Blood ABO, Rh, indirect ab screen (08/29/2015 3:45 PM ELECTRONIC PAGE MAKEUP SYSTEM OPERATOR) ABO, Rho(D) O Negative HISTORI CATHY RESULTS Yumi, indirect Negative HISTORICAL RESULTS Blood specimen (specimen) 08/29/2015 3:45 PM ELECTRONIC PAGE MAKEUP SYSTEM OPERATOR Historical Provider LAB BLOOD ORDERABLES Giovanna l Result HISTORICAL RESULTS * (ABNORMAL) Plasma basic metabolic panel (08/29/2015 3:45 PM ELECTRONIC PAGE MAKEUP SYSTEM OPERATOR) Sodium 141 135 - 145 mmol/L HISTORICAL RESULTS K, pl 4.2 3.3 - 4.9 mmol/L HISTORICAL RESULTS Chloride 100 97 - 110 mmol/L HISTORICAL RESULTS CO2 28 22 - 32 mmol/L HISTORICAL RESULTS A. gap 13 0 - 16 mmol/L HISTORICAL RESULTS Glucose 114 70 - 199 mg/dl HISTORICAL RESULTS BUN 7(L) 8 - 25 mg/dl HISTORICAL RESULTS Creatinine 0.76 0.60 - 1.10 mg/dl HISTORICAL RESULTS Calcium 9.8 8.6 - 10.3 mg/dl HISTORICAL RESULTS Plasma 08/29/2015 3:45 PM ELECTRONIC PAGE MAKEUP SYSTEM OPERATOR Historical Provider LAB BLOOD ORDERABLES Giovanna l Result HISTORICAL RESULTS * Blood cell count [CBC] express (08/29/2015 3:45 PM ELECTRONIC PAGE MAKEUP SYSTEM OPERATOR) WBC 7.7 3.8 - 9.8 K/cumm HISTORICAL RESULTS RBC 3.96 3.90 - 5.00 M/cumm HISTORICAL RESULTS Hgb 12.7 12.1 - 15.1 g/dl HISTORICAL RESULTS Hct 38.6 36.1 - 44.3 % HISTORICAL RESULTS MCV 97.6 80.0 - 97.6 fl HISTORICAL RESULTS MCH 32.2 26.7 - 33.7 pg HISTORICAL RESULTS MCHC 33.0 32.7 - 35.5 g/dl HISTORICAL RESULTS Rdw 12.4 11.8 - 14.6 % HISTORICAL RESULTS Platelets 287 140 - 440 K/cumm HISTORICAL RESULTS MPV 7.2 6.8 - 10.4 fl HISTORICAL RESULTS Blood specimen (specimen) 08/29/2015 3:45 PM ELECTRONIC PAGE MAKEUP SYSTEM OPERATOR Result [facility] Historical Provider LAB BLOOD ORDERABLES Giovanna l Result HISTORICAL RESULTS * DISCHARGE LABORATORY CUMULATIVE REPORT (08/29/2015) Narrative 08/29/2015 Ordered by an unspecified provider. Result [facility] Provider LAB BLOOD ORDERABLES Giovanna l Result * ELECTROCARDIOGRAPHY (ECG) (08/29/2015) Narrative 08/29/2015 Ordered by an unspecified provider. Historical Provider ECG ORDERABLES Final Res ult documented in this encounter Visit Diagnoses Diagnosis Encounter for preprocedural laboratory examination Encounter for preprocedural cardiovascular examination Localized swelling, mass or lump of neck Hyperlipidemia Other and unspecified hyperlipidemia Atherosclerotic heart disease of [place] coronary artery without angina pectoris documented in this encounter Care Teams Log Data Technician Relationship Specialty Start Date End Date Dion Greene MD [address] [facility] [address] [place] [address] PCP - General 06/29/15 01/01/17 documented as of this encounter
--- OUTSIDE RECORDS SUMMARY | 2024-10-07 01:43 | XMS_ITS | Encounter Summary ---
Author Organization [facility] Address [address] [facility] [address] [place] [address] Care Team Providers Care Piano Mechanic Apprentice Name Role Phone Evelio Wilson MD Primary Care Provider [phone] Encounter Details Date Type Department Care Team (Late st Contact Info) Description 04/03/2023 Telephone [facility] Cardiology [address] [place] [address] Jose Reddy MD [address] [place], [place] [id number] Social History Tobacco Use Types Packs/Day Years Used Date Smoking Tobacco: Former Smokeless Tobacco: Never Alcohol Use Standard Drinks/Week Comments Yes 0 (1 standard drink = 0.6 oz pur e alcohol) Comments Unknown Sex and Gender Information Value Date Recorded Sex Assigned at Not on file Legal Sex Female 10:17 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 Pt voiced understanding * Telephone Encounter - Janae Wan RN - 04/06/2023 11:22 AM CDT Pt aware RUSSEL is in the hospital today doing rounds and we may not get back to her until when he is back in the office. * Telephone Encounter - Sanna Pierce - 04/06/2023 11:14 AM CDT Pt requesting call back to confirm new medication Phetermine for weight loss is safe for her to take with existing heart condition. Please advise, thank you. Contact:[phone] * Telephone Encounter - Rosa Sloan RN - 04/03/2023 10:09 AM CDT Will forward to [facility]. Please advise. * Telephone Encounter - Zabrina Walls - 04/03/2023 9:58 AM CDT Pt calling in state that her pcp Dr Wilson wants to put her a Phetermine for weight loss. However he is concerned that prescribing it mat conflict with the stents in her. Pt wants to know if it would be safe to take. Requesting call back to discuss. Contact: documented in this encounter Plan of Treatment Not on file documented as of this encounter Visit Diagnoses Not on filedocumented in this encounter Care Teams Piano Mechanic Apprentice Relationship Specialty Start Date End Date Evelio Wilson MD PCP - General Family Practice 03/05/23 documented as of this encounter
--- OUTSIDE RECORDS SUMMARY | 2024-10-07 01:43 | XMS_ITS | Encounter Summary ---
Author Organization [facility] Address [address] [facility] [address] [place] [address] Care Team Providers Care Dinkey Motor Operator Name Role Phone Van Gonzales DO Primary Care Provider [phone] Reason for Referral * Diagnostic Imaging (Routine) - Closed Specialty Diagnoses / Procedures Referred By Contac t Referred To Contact Diagnoses History of coronary artery stent placement Procedures NM MPI SPECT (Rest and/or Stress) Multiple Studies Jose Reddy MD [address] [address] Phone: tel: fax: [facility] Referral ID Status Reason Start Date Expiration Date Visits Re quested Visits Authorized [id number] Closed 02/17/2023 03/18/2024 1 1 Reason for Visit * Reason Comments Coronary Artery Disease 6 month follow u p. 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 Gender Identity Not on file Sexual Orientation Not on file documented as of this encounter Last Filed Vital Signs Vital Sign Reading Time Taken Comments Blood Pressure 130/78 02/17/2023 10:09 AM CDT Pulse 79 02/17/2023 10:09 AM CDT Temperature - - Respiratory Rate - - Oxygen Saturation 98% 02/17/2023 10:09 AM CDT Inhaled Oxygen Concentration - - Weight 88.5 kg (195 lb) 02/17/2023 10:09 AM CDT Height 172.7 cm (5' 8 ) 02/17/2023 10:09 AM CDT Body Mass Index 29.65 02/17/2023 10:09 AM CDT documented in this encounter Progress Notes * Jose Reddy MD - 02/17/2023 10:30 AM CDT [facility] 02/17/2023 Lisbet Alejandro is a 57 y.o. female who presents for follow up of coronary artery disease. This is a patient who presented in December of 2014 with acute inferior wall infarction. She underwent emergency right coronary intervention involving PTCA and stenting of the 2nd portion of the artery. She receiveda 3 x 23 mm L [place] drug-eluting stent with a nice anatomical result. The patient presents today for scheduled office visit. The patient initially stated she is feeling well and does not have any significant symptoms to report. On further conversation she is having some symptoms that are concerning for ischemia she is been trying to exercise and lose weight and on occasion she will notice some retrosternal chest burning like discomfort with sustained activity such as swimming in the pool and doing water aerobics. She thought this was a respiratory problem and didnot think it was necessary or important to bring this to the attention of her PCP. REVIEW OF SYSTEMS General ROS: negative for [...] by mouth daily, Disp: , Rfl: ??? melatonin 10 mg tablet, Take 1 tablet (10 mg total) by mouth daily, Disp: , Rfl: ??? meloxicam (MOBIC) 15 mg tablet, Take 1 tablet (15 mg total) by mouth daily, Disp: , Rfl: ??? multivitamin tablet tablet, take 1 by Oral route once, Disp: 0, Rfl: 0 ??? omega-3 fatty acids (LOVAZA) 1 gram capsule, Take 1 capsule (1 g total) by mouth 2 (two) times a day, Disp: , Rfl: ??? oxyCODONE-acetaminophen (PERCOCET) 10-325 mg per tablet, take 1 tablet by oral route every 6 hours as needed, Disp: 0, Rfl: 0 ??? pantoprazole DR (PROTONIX) 40 mg EC tablet, , Disp: , Rfl: ??? rosuvastatin (CRESTOR) 40 mg tablet, 0.5 tablets (20 mg total), Disp: , Rfl: ??? vitamin B complex tablet extended release, Take by mouth, Disp: , Rfl: ??? topiramate (TOPAMAX) 50 mg tablet, Take [...] for component: LABALBU PHYSICAL EXAM Vitals BP 130/78 (BP Location: Left arm, Patient Position: Sitting) Pulse 79 Ht 172.7 cm (5' 8 ) Wt 88.5 kg (195 lb) SpO2 98% BMI 29.65 kg/m?? Physical Examination: General appearance - alert, [...] for this visit: Coronary artery disease involving [place] coronary artery of [place] heart without angina pectoris History of coronary artery stent placement PLAN/RECOMMENDATIONS Continue current medical regimen Given her symptoms we will schedule a Lexiscan nuclear stress test. Patient does not think she willbe capable of walking on the treadmill because of degenerative joint disease in her knees Will schedule a six-month follow-up appointment but of course if her nuclear stress is abnormal will have to call her in for a sooner appointment Jose Reddy MD documented in this encounter Plan of Treatment Not on file documented as of this encounter Procedures Procedure Name Priority Date/Time Associated Diagnosis Comments NM MPI SPECT (REST AND/OR STRESS) MULTIPLE STUDIES Schedule Routine, Read Routine (OP Routine) 04/16/2023 10:03 AM CDT History of coronary artery stent placement documented in this encounter Results * NM MPI SPECT (Rest and/or Stress) Multiple Studies (04/16/2023 10:03 AM CDT) Anatomical Region Laterality Modality Body N/A Nuclear Medicine 04/16/2023 9:06 AM CDT Narrative 04/16/2023 2:07 PM CDT [facility] Cardiology [address] [facility] [address] [address] [address] [facility] [address] [address] P:[phone] P:[phone] MPI Imaging Report Patient Name: LISBET ALEJANDRO : 1965 Study Date: 04/16/2023 9:06:45 AM Gender: F Tech: HAZEL LUCIO Location: [place] Ref.Provider: JOSE REDDY Height(Cm): 172.7 BSA: Weight(Kg): 88.5 BMI: 29.67Order Provider: JOSE REDDY - Physician: Referring Physician: Dr. Wilson. HCG Physician: Jose Reddy M.D.,Jacqui Interpreting Physician: Jing Bhakta M.D. Stress Supervision: Jose Reddy M.D.,Jacqui Procedures: Myocardial perfusion imaging with Tc99M Sestamibi SPECT at rest and stress post regadenoson (Lexiscan) infusion. Indications: Chest Pain, Coronary Artery Disease, Family Hx CAD, High Cholesterol, and Former Smoker. Findings: Procedural Findings: One day rest/stress was used. Tc99m Sestamibi injected IV at rest was 10.3 millicuries. 32.2 millicuries of Tc99M Sestamibi injected IV during Lexiscan stress. Lexiscan 0.4mg given IV over 10 seconds with low level exercise: 1.2 MPH. Patient had no symptoms during stress test. Baseline heart rate was 82 BPM. Maximum Heart Rate Achieved was: 127 BPM. Baseline blood pressure was 160/84 mmHg. Post Stress Blood Pressure was 146/80 mmHg. Termination: Protocol complete. Resting ECG: Sinus rhythm, Normal ECG. Post ECG: No diagnostic ST changes. Perfusion Findings: Abnormal perfusion imaging - see below. Technical quality of study is excellent. Prone imaging was not performed. Left ventricle cavity size at rest is normal. Left ventricle cavity size with stress is unchanged. A TID of 0.64 was automatically calculated. defect 1: Size is small. Severity is mild. Location of defect is in the basal inferoseptal segment. Reversibility is not present, defect is fixed. Type of defect is infarction. LV Function: There is hyperdynamic global left ventricular systolic function. Left ventricular ejection fraction is 78 %. PostStress LV Wall Motion: There is hypokinesis in the basal inferoseptal segment. Conclusions: Sinus rhythm, Normal ECG. No diagnostic ST changes. There is hyperdynamic global left ventricular systolic function. Left ventricular ejection fraction is 78 %. There is hypokinesis in the basal inferoseptal segment. Myocardial perfusion imaging is abnormal. Small mild infarction in the basal inferoseptal wall. No reversible myocardial ischemia. Electronically Signed By: Jose Reddy MD, [facility] 2023-04-16 12:14:37 CDT Electronically Signed By: Jing Bhakta MD 2023-04-16 14:07:36 CDT CC: CC: Procedure Note Mike Bhakta MD - 04/16/2023 [facility] Cardiology [address], [place] [address] [address], [place] [address] P:[phone] P:[phone] MPI Imaging Report Patient Name: LISBET ALEJANDROPatient ID: [id number] : [id number] Date: 04/16/2023 9:06:45 AM Gender: FAccession #: [id number] Tech: KHADIJAH[facility] [place] Ref.Provider: JOSE REDDYHeight(Cm): 172.7 BSA: Weight(Kg): 88.5 BMI: 29.67Order Provider: JOSE REDDY - Physician: Referring Physician: Dr. Wilson. HCG Physician: Jose Reddy M.D.,F.A.C.C. Interpreting Physician: Jing Bhakta M.D. Stress Supervision: MichaelJ. Barry M.D.,F.A.C.C. Procedures: Myocardial perfusion imaging with Tc99M Sestamibi SPECT at rest and stresspost regadenoson (Lexiscan) infusion. Indications: Chest Pain, Coronary Artery Disease, Family Hx CAD, High Cholesterol, andFormer Smoker. Findings: Procedural Findings: One day rest/stress was used. Tc99m Sestamibi injected IV at rest was 10.3millicuries. 32.2 millicuries of Tc99M Sestamibi injected IV during Lexiscan stress.Lexiscan 0.4mg given IV over 10 seconds with low level exercise: 1.2 MPH. Patient had nosymptoms during stress test. Baseline heart rate was 82 BPM. Maximum Heart Rate Achievedwas: 127 BPM. Baseline blood pressure was 160/84 mmHg. Post Stress Blood Pressure dva252/80 mmHg. Termination: Protocol complete. Resting ECG: Sinus rhythm, Normal ECG. Post ECG: No diagnostic ST changes. Perfusion Findings: Abnormal perfusion imaging - see below. Technical quality of study isexcellent. Prone imaging was not performed. Left ventricle cavity size at rest is normal.Left ventricle cavity size with stress is unchanged. A TID of 0.64 was automaticallycalculated. defect 1: Size is small. Severity is mild. Location of defect is in the basalinferoseptal segment. Reversibility is not present, defect is fixed. Type of defect isinfarction. LV Function: There is hyperdynamic global left ventricular systolic function. Leftventricular ejection fraction is 78 %. PostStress LV Wall Motion: There is hypokinesis in the basal inferoseptal segment. Conclusions: Sinus rhythm, Normal ECG. No diagnostic ST changes. There is hyperdynamic global left ventricular systolic function. Leftventricular ejection fraction is 78 %. There is hypokinesis in the basal inferoseptal segment. Myocardial perfusion imaging is abnormal. Small mild infarction in the basal inferoseptal wall. No reversiblemyocardial ischemia. Electronically Signed By: Jose Reddy MD, [facility] 2023-04-16 12:14:37 CDT Electronically Signed By: Jing Bhakta MD 2023-04-16 14:07:36 CDT CC: CC: Jose Reddy MD IMG NM PROCEDURES Final Result documented in this encounter Visit Diagnoses Diagnosis Coronary artery disease involving [place] coronary artery of [place] heart without angina pectoris- Primary History of coronary artery stent placement documented in this encounter Historical Medications * This list may reflect changes made after this encounter. meloxicam (MOBIC) 15 mg tablet Take 1 tablet (15 mg total) by mouth daily 02/05/2023 09/09/2024 added in this encounter Care Teams Dinkey Motor Operator Relationship Specialty Start Date End Date Van Gonzales DO PCP - General Internal Medicine 07/19/19 03/04/23 documented as of this encounter
--- OUTSIDE RECORDS SUMMARY | 2024-10-07 01:43 | XMS_ITS | Encounter Summary ---
Author Organization [facility] Address [address] [facility] [address] [place] [address] Care Team Providers Care Physician Practice Market Manager Name Role Phone Van Gonzales DO Primary Care Provider [phone] Encounter Details Date Type Department Care Team (Late st Contact Info) Description 01/22/2022 Telephone [facility] Cardiology [address] [facility] [address] [place] [address] Jose Reddy MD [address] [place], [place] [id number] Social History Tobacco Use Types Packs/Day Years Used Date Smoking Tobacco: Former Smokeless Tobacco: Never Alcohol Use Standard Drinks/Week Comments Yes 0 (1 standard drink = 0.6 oz pur e alcohol) Comments Unknown Sex and Gender Information Value Date Recorded Sex Assigned at Not on file 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 It looks like these are normally prescribed by her PCP and were just filled last month for a 90 day supply. Needs to contact their office. * Telephone Encounter - Vidhi Gao - 01/22/2022 10:31 AM CDT Pt requesting refill for Rosuvastatin 20 mg, 1 tablet daily and Ezetimibe 10 mg, 1 tablet daily fora 90 day supply sent to [facility] in [place]. Contact: documented in this encounter Plan of Treatment Not on file documented as of this encounter Visit Diagnoses Not on filedocumented in this encounter Care Teams Physician Practice Market Manager Relationship Specialty Start Date End Date Van Gonzales DO PCP - General Internal Medicine 07/19/19 03/04/23 documented as of this encounter
--- OUTSIDE RECORDS SUMMARY | 2024-10-07 01:43 | XMS_ITS | Encounter Summary ---
Author Organization [facility] Address [address] [facility] [address] [place] [address] Care Team Providers Care Hat Blocking Operator Name Role Phone Van Gonzales DO Primary Care Provider [phone] Reason for Visit * Reason Comments Follow-up 6 mo fu on cad, h/o stent Encounter Details Date Type Department Care Team (Late st Contact Info) Description 07/19/2019 11:30 AM CDT Office Visit [facility] [address] [place] [address] Jose Reddy MD [address] [facility] [address] [place] [address] Coronary artery disease involving [place] coronary artery of [place] heart without angina pectoris (Primary Dx); History of coronary artery stent placement Social History Tobacco Use Types Packs/Day Years Used Date Smoking Tobacco: Former Smokeless Tobacco: Never Alcohol Use Standard Drinks/Week Comments Yes 0 (1 standard drink = 0.6 oz pur e alcohol) Comments Unknown Sex and Gender Information Value Date Recorded Sex Assigned at Not on file 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 Gender Identity Not on file Sexual Orientation Not on file documented as of this encounter Last Filed Vital Signs Vital Sign Reading Time Taken Comments Blood Pressure 140/80 07/19/2019 11:29 AM CDT Pulse 91 07/19/2019 11:29 AM CDT Temperature - - Respiratory Rate - - Oxygen Saturation 96% 07/19/2019 11:29 AM CDT Inhaled Oxygen Concentration - - Weight 79.8 kg (176 lb) 07/19/2019 11:29 AM CDT Height 172.7 cm (5' 8 ) 07/19/2019 11:29 AM CDT Body Mass Index 26.76 07/19/2019 11:29 AM CDT documented in this encounter Progress Notes * Jose Reddy MD - 07/19/2019 11:30 AM CDT [facility] 07/19/2019 Lisbet Alejandro is a 54 y.o. female who presents for follow up of coronary artery disease. This is a patient who presented in December of 2014 with acute inferior wall infarction. She underwent emergency right coronary intervention involving PTCA and stenting of the 2nd portion of the artery. She receiveda 3 x 23 mm L [place] drug-eluting stent with a nice anatomical result. She returns today to the office for scheduled follow-up. The patient is feeling very well and does not have any complaints. Six months ago she was having some stress related chest pain because of thesudden of her sister. That stressful situation has passed and she now feels much better. She is having no exertional symptoms of any kind that would be suspicious of ischemia. REVIEW OF SYSTEMS General ROS: negative for [...] rash HOME MEDICATIONS Current Outpatient Medications: ??? ALPRAZolam (XANAX) 0.25 mg tablet, 1 tablet 3 (three) times a day as needed, Disp: , Rfl: 0 ??? aspirin (ASPIR-81) 81 mg tablet, take 1 Tablet by oral route every day, Disp: 0, Rfl: 0 ??? calcium citrate-vitamin D3 250 mg calcium- 200 unit tablet, Take by mouth., Disp: , Rfl: ??? FLUoxetine (PROzac) 20 mg capsule, 1 capsule daily, Disp: , Rfl: 0 ??? melatonin 10 mg tablet, Take 10 [...] 1 tablet (20 mg total) by mouth daily, Disp: 90 tablet, Rfl: 3 LABS AND OTHER DIAGNOSTIC TESTS No results found for: CHOL No results found for: HDL No results found for: LDLCALC No results found for: TRIG No results found for: CHOLHDL Lab Results Component Value Date HGB 11.2 (L) 09/06/2015 HCT 34.3 (L) 09/06/2015 MCV 97.6 09/06/2015 No lab exists for component: LABALBU PHYSICAL EXAM Vitals BP 140/80 (BP Location: Left arm, Patient Position: Sitting) Pulse 91 Ht 172.7 cm (5' 8 ) Wt 79.8 kg (176 lb) SpO2 96% BMI 26.76 kg/m?? Physical Examination: General appearance - alert, [...] for this visit: Coronary artery disease involving [place] coronary artery of [place] heart without angina pectoris History of coronary artery stent placement PLAN/RECOMMENDATIONS Continue current medical regimen We will continue to see her at annual intervals or p.r.n. Jose Reddy MD documented in this encounter Plan of Treatment Not on file documented as of this encounter Visit Diagnoses Diagnosis Coronary artery disease involving [place] coronary artery of [place] heart without angina pectoris- Primary History of coronary artery stent placement documented in this encounter Discontinued Medications Medication Sig Discontinue Reason Start Date End Da te CHANTIX STARTING MONTH BOX 0.5 mg (11)- 1 mg (42) tablet 1 tablet daily Therapy completed 12/31/2018 07/19/2019 documented as of this encounter Historical Medications * This list may reflect changes made after this encounter. FLUoxetine (PROzac) 20 mg capsule 1 capsule daily 0 06/29/2019 09/04/2020 added in this encounter Care Teams Hat Blocking Operator Relationship Specialty Start Date End Date Van Gonzales DO PCP - General Internal Medicine 07/19/19 03/04/23 documented as of this encounter
--- OUTSIDE RECORDS SUMMARY | 2024-10-07 01:43 | XMS_ITS | Encounter Summary ---
Author Organization [facility] Address [address] [facility] [address] [place] [address] Care Team Providers Care Police Communications Operator Name Role Phone Dion Greene MD Primary Care Provider [phone] Encounter Details Date Type Department Care Team (Late st Contact Info) Description 10/19/2018 Telephone [facility] [address] [facility] [address] [facility] [address] [place] [address] Jose Reddy MD [address] [facility] [address] [place], [place] [id number] Social History Tobacco Use Types Packs/Day Years Used Date Smoking Tobacco: Former Smokeless Tobacco: Never Alcohol Use Standard Drinks/Week Comments Yes 0 (1 standard drink = 0.6 oz pur e alcohol) Comments Unknown Sex and Gender Information Value Date Recorded Sex Assigned at Not on file Legal Sex Female 10:17 AM EXHIBIT ARTIST Gender Identity Not on file Sexual Orientation Not on file documented as of this encounter Miscellaneous Notes * Telephone Encounter - Niki Garcia RN - 10/20/2018 11:22 AM EXHIBIT ARTIST Pt called PCP office and they wanted her to come in and sign up as a new pt. Pt said she has seen Dr Greene for 28 years. She became annoyed and hung up. Pt wants Dr Reddy to prescribe something for her UTI. told pt I spoke with dr Reddy yesterday and he said he made it clear to pt that he would order the test as a courtesy to pt since she was in the office, but he would not treat the UTIif that was what's needed.Pt asked if Dr would prescribe just this one time. Pt agreed that Dr Reddy was clear that he would not treat her presumed UTI. Told pt that the practice is limited to cardiology . Suggested urgent care if she does not want to deal with PCP office. BIT ARTIST * Telephone Encounter - Krys Mathis - 10/20/2018 11:05 AM CST Pt wants a call back from a nurse regarding UTI. [phone] BIT ARTIST * Telephone Encounter - Rosa River RN - 10/19/2018 3:15 PM EXHIBIT ARTIST Noted. BIT ARTIST * Telephone Encounter - Krys Mathis - 10/19/2018 3:09 PM CST Pt called back and wants urinary cultures sent to Dr. Greene when the results come in. Said she does not need a call back. BIT ARTIST * Telephone Encounter - Niki Garcia RN - 10/19/2018 1:54 PM EXHIBIT ARTIST Called pt, reviewed lipids. Told her that UA has been faxed to Dr Greene, follow up with him. BIT ARTIST * Telephone Encounter - Milagro Dillard - 10/19/2018 1:40 PM EXHIBIT ARTIST Pt returned call BIT ARTIST * Telephone Encounter - Niki Garcia RN - 10/19/2018 1:37 PM EXHIBIT ARTIST Tried to call pt, no answer. BIT ARTIST * Telephone Encounter - Carolyn Mathise - 10/19/2018 1:20 PM CST Pt would like a call back to review her lipid panels from January and from today. [phone] BIT ARTIST documented in this encounter Plan of Treatment Not on file documented as of this encounter Visit Diagnoses Not on filedocumented in this encounter Care Teams Police Communications Operator Relationship Specialty Start Date End Date Dion Greene MD [address] [facility] [address] [place] [address] PCP - General 01/02/17 07/18/19 documented as of this encounter
--- OUTSIDE RECORDS SUMMARY | 2024-10-07 01:43 | XMS_ITS | Encounter Summary ---
Author Organization [facility] Medical [facility] Address [address] [facility] [address] [place] [address] Care Team Providers Care Inspector Metal Fabricating Name Role Phone Dion Greene MD Primary Care Provider [phone] Reason for Visit * Cardiology (Routine) - Closed Specialty Diagnoses / Procedures Referred By Contac t Referred To Contact Diagnoses Coronary artery disease involving [place] coronary artery of [place] heart without angina pectoris Procedures Echo Exercise Stress Test Only Jose Reddy MD Phone: tel: fax: External Order Referral ID Status Reason Start Date Expiration Date Visits Re quested Visits Authorized [id number] Closed 01/06/2019 07/17/2020 1 1 Encounter Details Date Type Department Care Team (Latest Contact Info) Description 01/18/2019 10:15 AM CDT Ancillary Procedure 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 Gender Identity Not on file Sexual Orientation Not on file documented as of this encounter Plan of Treatment Not on file documented as of this encounter Procedures Procedure Name Priority Date/Time Associated Diagnosis Comments STRESS ECHO EXERCISE WO DOPPLER/CF WO CONTRAST Routine 01/18/2019 10:59 AM CDT Coronary artery disease involving t[place] coronary artery of [place] heart without angina pectoris documented in this encounter Results * STRESS ECHO EXERCISE WO DOPPLER/CF WO CONTRAST (01/18/2019 10:59 AM CDT) Anatomical Region Laterality Modality Ultrasound 01/18/2019 10:0 5 AM CDT Narrative 01/18/2019 5:31 PM CDT [facility] [address] [facility] [address], [place] [address] [address], [place] [address] P:[phone] P:[phone] Echocardiographic Report Patient Name: LISBET ALEJANDRO : 1965 Study Date: 01/18/2019 10:05:53 AM Gender: F Tech: Location: [place] Ref.Provider: TRISTAN Height(Cm): 173 BSA: 1.89 Weight(Kg): [...] BP - 200/80. Rate Pressure Product - 60460. METS Achieved - 10.10. Percent Predicted Maximal HR Achieved - 103 %. Interpretation Site: Exam was interpreted at [facility]. Performance: Average exercise functional capacity. Hemodynamic Response: [...] BP - 200/80. Rate Pressure Product - [id number]. METS Achieved - 10.10. Percent Predicted Maximal [...] %. Electronically Signed By: Jose Reddy MD, [facility] 2019-01-18 17:31:39 CDT Procedure Note Jose Reddy MD - 01/18/2019 [facility] [address] [facility] [address], [place] [address] [address], [place], [place] [address] P:[phone] P:[phone] Echocardiographic Report Patient Name: LISBET ALEJANDROPatient ID: [id number] : [id number] Date: 01/18/2019 10:05:53 AM Gender: FAccession #: [id number] Tech: GMLocation: [place] Ref.Provider: Yazmin(Cm): 173 BSA: 1.89Weight(Kg): 75.75 Heart [...] BP - 200/80. Rate Pressure Product - 55453. METS Achieved - 10.10.Percent Predicted Maximal HR Achieved - 103 %. Interpretation Site: Exam was interpreted at [facility]. Performance: Average exercise functional capacity. Hemodynamic Response: [...] BP - 200/80. Rate Pressure Product - 15234. METS Achieved - 10.10.Percent Predicted Maximal HR [...] %. Electronically Signed By: Jose Reddy MD, [facility] 2019-01-18 17:31:39 CDT Jose Reddy MD CV ECHO PROCEDURES Final Result documented in this encounter Visit Diagnoses Diagnosis Coronary artery disease involving [place] coronary artery of [place] heart without angina pectoris documented in this encounter Care Teams Inspector Metal Fabricating Relationship Specialty Start Date End Date Dion Greene MD [address] [facility] [address] [address] [facility] [address] [place] [address] PCP - General 01/02/17 07/18/19 documented as of this encounter
--- OUTSIDE RECORDS SUMMARY | 2024-10-07 01:43 | XMS_ITS | Encounter Summary ---
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
--- OUTSIDE RECORDS SUMMARY | 2024-10-07 01:43 | XMS_ITS | Encounter Summary ---
Author Organization [facility] Medical [facility] Address [address] [facility] [address] [place] [address] Care Team Providers Care Cook Fry Name Role Phone Dion Greene MD Primary Care Provider [phone] Encounter Details Date Type Department Care Team (Late st Contact Info) Description 11/06/2017 Telephone [facility] [address] [facility] [address] [place] [phone] Jose Reddy MD [address] [facility] [address] [place] [id number] Social History Tobacco Use Types Packs/Day Years Used Date Smoking Tobacco: Former Alcohol Use Standard Drinks/Week Comments Yes 0 (1 standard drink = 0.6 oz pur e alcohol) Comments Unknown Sex and Gender Information Value Date Recorded Sex Assigned at Not on file 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 90 tablet 1 11/06/2017 01/21/2018 documented in this encounter Miscellaneous Notes * Telephone Encounter - Eleanor Wesley MA - 11/06/2017 10:48 AM CST E rx sent to pharm prb IN INSPECTOR documented in this encounter Plan of Treatment Not on file documented as of this encounter Visit Diagnoses Not on filedocumented in this encounter Discontinued Medications Medication Sig Discontinue Reason Start Date End Da te atorvastatin (LIPITOR) 40 mg tablet take 1 tablet by oral route every day Discontinued by another clinician 05/01/2015 11/06/2017 rosuvastatin (CRESTOR) 20 mg tablet take 1 tablet by oral route every day Reorder 04/17/2016 11/06/2017 documented as of this encounter Care Teams Cook Fry Relationship Specialty Start Date End Date Dion Greene MD [address] [place] [address] PCP - General 01/02/17 07/18/19 documented as of this encounter
--- OUTSIDE RECORDS SUMMARY | 2024-10-07 01:43 | XMS_ITS | Encounter Summary ---
Author Organization [facility] Medical [facility] Address [address] [facility] [address] [place] [address] Care Team Providers Care Air Defense Artillery Officer Name Role Phone Evelio Wilson MD Primary Care Provider [phone] Encounter Details Date Type Department Care Team (Late st Contact Info) Description 04/23/2023 Telephone [facility] Cardiology [address] [facility] [address] [facility] [address] [place] [address] Jose Reddy MD [address] [place], [place] [id number] Social History Tobacco Use Types Packs/Day Years Used Date Smoking Tobacco: Former Smokeless Tobacco: Never Alcohol Use Standard Drinks/Week Comments Yes 0 (1 standard drink = 0.6 oz pur e alcohol) Comments Unknown Sex and Gender Information Value Date Recorded Sex Assigned at Not on file Legal Sex Female 10:17 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 Pt is going to try diet and exercise prior to Ozempic * Telephone Encounter - Janae Wan RN - 04/23/2023 4:41 PM CDT See note below. ST results Conclusions: Sinus rhythm, Normal ECG. No diagnostic ST changes. There is hyperdynamic global left ventricular systolic function. Left ventricular ejection fraction is 78 %. There is hypokinesis in the basal inferoseptal segment. Myocardial perfusion imaging is abnormal. Small mild infarction in the basal inferoseptal wall. No reversible myocardial ischemia. Please advise if you need to see pt and on the weight loss drug. * Telephone Encounter - Vidhi Gao - 04/23/2023 3:38 PM CDT Pt requesting call to discuss stress test results. Also pt wants to know if it is safe for her to take Ozempic or Wegovy for weight loss. Contact: documented in this encounter Plan of Treatment Not on file documented as of this encounter Visit Diagnoses Not on filedocumented in this encounter Care Teams Air Defense Artillery Officer Relationship Specialty Start Date End Date Evelio Wilson MD PCP - General Family Practice 03/05/23 documented as of this encounter
--- OUTSIDE RECORDS SUMMARY | 2024-10-07 01:43 | XMS_ITS | Encounter Summary ---
Author Organization [facility] Medical Group Address [address] [facility] [address] [place] [address] Care Team Providers Care Inspector Purchased Parts Name Role Phone Dion Greene MD Primary Care Provider [phone] Encounter Details Date Type Department Care Team (Late st Contact Info) Description 10/21/2018 Telephone [facility] [address] [facility] [address] [facility] [address] [place] [address] Jose Reddy MD [address] [facility] [address] [place] [address] Social History Tobacco Use Types Packs/Day Years Used Date Smoking Tobacco: Former Smokeless Tobacco: Never Alcohol Use Standard Drinks/Week Comments Yes 0 (1 standard drink = 0.6 oz pur e alcohol) Comments Unknown Sex and Gender Information Value Date Recorded Sex Assigned at Not on file Legal Sex Female 10:17 AM PROJECT PORTFOLIO ANALYST Gender Identity Not on file Sexual Orientation Not on file documented as of this encounter Miscellaneous Notes * Telephone Encounter - Niki Garcia RN - 10/21/2018 11:12 AM PROJECT PORTFOLIO ANALYST LMOM for pt that urine culture showed no growth. No UTI, follow up with PCP or urology if pt is still having symptoms. ECT PORTFOLIO ANALYST documented in this encounter Plan of Treatment Not on file documented as of this encounter Visit Diagnoses Not on filedocumented in this encounter Care Teams Inspector Purchased Parts Relationship Specialty Start Date End Date Dion Greene MD [address] [facility] [address] [place] [address] PCP - General 01/02/17 07/18/19 documented as of this encounter
--- OUTSIDE RECORDS SUMMARY | 2024-10-07 01:43 | XMS_ITS | Encounter Summary ---
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
--- OUTSIDE RECORDS SUMMARY | 2024-10-07 01:43 | XMS_ITS | Encounter Summary ---
Author Organization [facility] Medical Group Address [address] [facility] [address] [place] [address] Care Team Providers Care Pharmacy Consultant Name Role Phone Dion Greene MD Primary Care Provider [phone] Reason for Visit * Reason Comments Follow-up yearly follow up on [facility] Encounter Details Date Type Department Care Team (Late st Contact Info) Description 01/21/2018 2:45 PM CDT Office Visit [facility] [address] [phone] Jose Reddy MD [address] [address] History of coronary artery stent placement (Primary Dx); Coronary artery disease involving mentasta coronary artery of mentasta heart without angina pectoris Social History Tobacco Use Types Packs/Day Years Used Date Smoking Tobacco: Former Smokeless Tobacco: Never Alcohol Use Standard Drinks/Week Comments Yes 0 (1 standard drink = 0.6 oz pur e alcohol) Comments Unknown Sex and Gender Information Value Date Recorded Sex Assigned at Not on file 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 Gender Identity Not on file Sexual Orientation Not on file documented as of this encounter Last Filed Vital Signs Vital Sign Reading Time Taken Comments Blood Pressure 134/78 01/21/2018 2:56 PM CDT Pulse 90 01/21/2018 2:56 PM CDT Temperature - - Respiratory Rate - - Oxygen Saturation 98% 01/21/2018 2:56 PM CDT Inhaled Oxygen Concentration - - Weight 72.1 kg (159 lb) 01/21/2018 2:56 PM CDT Height 172.7 cm (5' 8 ) 01/21/2018 2:56 PM CDT Body Mass Index 24.18 01/21/2018 2:56 PM CDT documented in this encounter Ordered Prescriptions Prescription Sig Dispense Quantity Refills Last Filled Start Date End Date rosuvastatin (CRESTOR) 20 mg tabletIndications: Coronary artery disease involving mentasta coronary artery of mentasta heart without angina pectoris Take 1 tablet (20 mg total) by mouth daily. 90 tablet 3 01/21/2018 10/06/2018 documented in this encounter Progress Notes * Jose Reddy MD - 01/21/2018 2:45 PM CDT [facility] FOLLOW UP 01/21/2018 Lisbet Alejandro is a 52 y.o. female who presents for follow up of coronary artery disease. This is a patient who presented in December of 2014 with acute inferior wall infarction. She underwent emergency right coronary intervention involving PTCA and stenting of the 2nd portion of the artery. She receiveda 3 x 23 mm L Bruce drug-eluting stent with a nice anatomical result. She returns today to the office for scheduled follow-up. She does not have any cardiovascular complaints or concerns. Her fingerstick lipid panel in the office today however is unfavorable with a total cholesterol of 311 despite high dose statin therapy. REVIEW OF SYSTEMS General ROS: negative for [...] lab exists for component: LABALBU PHYSICAL EXAM Vitals: 01/21/18 1456 BP: 134/78 Pulse: 90 SpO2: 98% Physical Examination: General appearance - alert, well [...] artery stent placement Coronary artery disease involving mentasta coronary artery of mentasta heart without angina pectoris PLAN/RECOMMENDATIONS Fasting lipid panel with LFTs she will have that done tomorrow morning Those results need to be brought to my attention and if we they are consistent with the office readings we will probably try to order Repatha the for this lady Jose Reddy MD documented in this encounter Miscellaneous Notes * Addendum Note - Jessica Kirby MA - 01/21/2018 2:45 PM CDTAddended by: JESSICA KIRBY on: 01/21/2018 06:36 PM Modules accepted: Orders documented in this encounter Plan of Treatment Scheduled Orders Name Type Priority Associated Diagnoses Orde r Schedule Lipid panel with direct LDL Lab Routine Coronary artery disease involving mentasta coronary artery of mentasta heart without angina pectoris 1 Occurrences starting 01/21/2018 until 01/21/2019 documented as of this encounter Procedures Procedure Name Priority Date/Time Associated Diagnosis Comments POCT LIPID PANEL Routine 01/21/2018 6:35 PM CDT Coronary artery disease involving mentasta coronary artery of mentasta heart without angina pectoris documented in this encounter Results * POCT lipid panel (01/21/2018 6:35 PM CDT) Cholesterol, POC 311 mg/dL Triglycerides, POC >650 mg/dL Blood specimen (specimen) 01/21/2018 6:35 PM CDT Jose Reddy MD POINT OF CARE TEST ORDER ALFREDO Final Result documented in this encounter Visit Diagnoses Diagnosis History of coronary artery stent placement- Primary Coronary artery disease involving mentasta coronary artery of mentasta heart without angina pectoris documented in this encounter Discontinued Medications Medication Sig Discontinue Reason Start Date End Da te clopidogrel (PLAVIX) 75 mg tablet TAKE ONE TABLET BY MOUTH ONCE DAILY Discontinued by another clinician 06/29/2015 01/21/[address] (CYMBALTA) 60 mg capsule take 1 capsule by oral route every day Discontinued by another clinician 04/17/2016 01/21/2018 escitalopram (LEXAPRO) 20 mg tablet take 1 tablet by oral route every day Discontinued by another clinician 12/29/2014 01/21/2018 sertraline (ZOLOFT) 25 mg tablet take 1 tablet by oral route every day Discontinued by another clinician 04/17/2016 01/21/2018 sertraline (ZOLOFT) 50 mg tablet take 1 tablet by oral route every day Discontinued by another clinician 04/17/2016 01/21/2018 rosuvastatin (CRESTOR) 20 mg tablet Take 1 tablet (20 mg total) by mouth daily. Reorder 11/06/2017 01/21/2018 documented as of this encounter Historical Medications * This list may reflect changes made after this encounter. melatonin 10 mg tablet Take 1 tablet (10 mg total) by mouth daily calcium citrate-vitamin D3 250 mg calcium- 200 unit tablet Take by mouth. buPROPion XL (WELLBUTRIN XL) 150 mg 24 hr tablet Take 150 mg by mouth daily. 10/19/2018 sertraline (ZOLOFT) 100 mg tablet Take 100 mg by mouth daily. 10/19/2018 added in this encounter Care Teams Pharmacy Consultant Relationship Specialty Start Date End Date Dion Greene MD [address] [facility] [address] [place] [address] PCP - General 01/02/17 07/18/19 documented as of this encounter
--- OUTSIDE RECORDS SUMMARY | 2024-10-07 01:43 | XMS_ITS | Encounter Summary ---
Author Organization [facility] Address [address] [facility] [address] [place] [address] Care Team Providers Care Block Saw Operator Name Role Phone Dion Greene MD Primary Care Provider [phone] Encounter Details Date Type Department Care Team (Late st Contact Info) Description 02/25/2019 Telephone [facility] [address] [phone] Jose Reddy MD [address] [facility] [address] [place], [place] [id number] Social History Tobacco Use Types Packs/Day Years Used Date Smoking Tobacco: Former Smokeless Tobacco: Never Alcohol Use Standard Drinks/Week Comments Yes 0 (1 standard drink = 0.6 oz pur e alcohol) Comments Unknown Sex and Gender Information Value Date Recorded Sex Assigned at Not on file Legal Sex Female 10:17 AM PROJECT MANAGEMENT DIRECTOR Gender Identity Not on file Sexual Orientation Not on file documented as of this encounter Ordered Prescriptions Prescription Sig Dispense Quantity Refills Last Filled Start Date End Date rosuvastatin (CRESTOR) 20 mg tabletIndications: Coronary artery disease involving [place] coronary artery of [place] heart without angina pectoris Take 1 tablet (20 mg total) by mouth daily 90 tablet 3 02/25/2019 05/07/2020 documented in this encounter Miscellaneous Notes * Telephone Encounter - Jessica Kirby MA - 02/25/2019 2:23 PM CDT Medication sent to pharmacy. * Telephone Encounter - Milagro Dlilard - 02/25/2019 2:02 PM CDT Pt called requesting refills for Crestor 20 mg tabs be sent to [facility] in [facility] [phone] documented in this encounter Plan of Treatment Not on file documented as of this encounter Visit Diagnoses Diagnosis Coronary artery disease involving [place] coronary artery of [place] heart without angina pectoris documented in this encounter Discontinued Medications Medication Sig Discontinue Reason Start Date End Da te rosuvastatin (CRESTOR) 20 mg tabletIndications:Pimentel ry artery disease involving [place] coronary artery of [place] heart without angina pectoris Take 1 tablet (20 mg total) by mouth daily. Reorder 10/06/2018 02/25/2019 documented as of this encounter Care Teams Block Saw Operator Relationship Specialty Start Date End Date Dion Greene MD [address] [place] [address] PCP - General 01/02/17 07/18/19 documented as of this encounter
--- OUTSIDE RECORDS SUMMARY | 2024-10-07 01:43 | XMS_ITS | Encounter Summary ---
Author Organization [facility] Medical [facility] Address [address] [facility] [address] [place] [address] Care Team Providers Care Cigarette And Filter Chief Inspector Name Role Phone Van Gonzales DO Primary Care Provider [phone] Encounter Details Date Type Department Care Team (Late st Contact Info) Description 04/10/[address] 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 Gender Identity Not on file Sexual Orientation Not on file documented as of this encounter Plan of Treatment Not on file documented as of this encounter Procedures Procedure Name Priority Date/Time Associated Diagnosis Comments CARDIOLOGY DOCUMENT SCAN Routine 04/10/2022 documented in this encounter Results * Cardiology Document Scan (04/10/2022) Anatomical Region Laterality Modality Other Jose Reddy MD CV CARDIAC SERVICES PROC EDURES Final Result documented in this encounter Visit Diagnoses Not on filedocumented in this encounter Care Teams Cigarette And Filter Chief Inspector Relationship Specialty Start Date End Date Van Gonzales DO PCP - General Internal Medicine 07/19/19 03/04/23 documented as of this encounter
--- OUTSIDE RECORDS SUMMARY | 2024-10-07 01:43 | XMS_ITS | Encounter Summary ---
Author Organization [facility] Address [address] [facility] [address] [place] [address] Care Team Providers Care Reception Manager Name Role Phone Van Gonzales DO Primary Care Provider [phone] Reason for Visit * Reason Comments Coronary Artery Disease Annual f/u Encounter Details Date Type Department Care Team (Late st Contact Info) Description 08/14/2022 11:00 AM PUBLIC RELATIONS Office Visit [facility] Cardiology [address] [facility] [address] [place] [address] Jose Reddy MD [address] [facility] [address] [place] [address] Coronary artery disease involving tribe coronary artery of tribe heart without angina pectoris (Primary Dx); [...] on file Legal Sex Female 10:17 AM PUBLIC RELATIONS Gender Identity Not on file Sexual Orientation Not on file documented as of this encounter Last Filed Vital Signs Vital Sign Reading Time Taken Comments Blood Pressure 128/66 08/14/2022 11:03 AM PUBLIC RELATIONS Pulse 93 08/14/2022 11:03 AM PUBLIC RELATIONS Temperature - - Respiratory Rate - - Oxygen Saturation 93% 08/14/2022 11:03 AM PUBLIC RELATIONS Inhaled Oxygen Concentration - - Weight 86.6 kg (191 lb) 08/14/2022 11:03 AM PUBLIC RELATIONS Height 172.7 cm (5' 8 ) 08/14/2022 11:03 AM PUBLIC RELATIONS Body Mass Index 29.04 08/14/2022 11:03 AM PUBLIC RELATIONS documented in this encounter Progress Notes * Jose Reddy MD - 08/14/2022 11:00 AM CST [facility] 08/14/2022 Lisbet Alejandro is a 57 y.o. female who presents for follow up of coronary artery disease. This is a patient who presented in December of 2014 with acute inferior wall infarction. She underwent emergency right coronary intervention involving PTCA and stenting of the 2nd portion of the artery. She receiveda 3 x 23 mm L Hinds drug-eluting stent with a nice anatomical result. She presents today for scheduled annual follow-up visit. She is doing well and describes no symptoms that are concerning for myocardial ischemia. She has some difficulty with increasing joint diseasein her knees and her walking is more limited from that reason than it is for any cardiac concern. She seeing an orthopedist in considering the option of knee surgery in the foreseeable future. Her LDL cholesterol responded very nicely to the addition of ezetimibe to her Crestor. REVIEW OF SYSTEMS General ROS: negative for [...] Rfl: ezetimibe (ZETIA) 10 mg tablet, Take 10 mg by mouth daily, Disp: , Rfl: melatonin 10 mg tablet, Take 10 mg by mouth daily., Disp: , Rfl: multivitamin tablet tablet, take 1 by Oral route once, Disp: 0, Rfl: 0 omega-3 fatty acids (LOVAZA) 1 gram capsule, Take 1 g by mouth 2 (two) times a day, Disp: , Rfl: oxyCODONE-acetaminophen (PERCOCET) 10-325 mg per tablet, take 1 tablet by oral route every 6 hours as needed, Disp: 0, Rfl: [address] (PROTONIX) 40 mg EC tablet, , Disp: , Rfl: rosuvastatin (CRESTOR) 40 mg tablet, 20 mg, Disp: , Rfl: topiramate (TOPAMAX) 50 mg tablet, Take 50 mg by mouth nightly at bedtime, Disp: , Rfl: vitamin B complex tablet extended release, Take [...] for component: LABALBU PHYSICAL EXAM Vitals BP 128/66 (BP Location: Right arm, Patient Position: Sitting) Pulse 93 Ht 172.7 cm (5' 8 ) Wt 86.6 kg (191 lb) SpO2 93% BMI 29.04 kg/m?? Physical Examination: General appearance - alert, [...] for this visit: Coronary artery disease involving tribe coronary artery of tribe heart without angina pectoris History of coronary artery stent placement PLAN/RECOMMENDATIONS Continue current medical regimen We will continue to see her at annual intervals or p.r.n. Jose Reddy MD IC RELATIONS documented in this encounter Miscellaneous Notes * Addendum Note - Agnes Benoit MA - 08/14/2022 11:00 AM CSTAddended by: AGNES BENOIT on: 08/14/2022 04:58 PM Modules accepted: Orders IC RELATIONS documented in this encounter Plan of Treatment Not on file documented as of this encounter Procedures Procedure Name Priority Date/Time Associated Diagnosis Comments POCT LIPID PANEL Routine 08/14/2022 4:57 PM PUBLIC RELATIONS Coronary artery disease involving tribe coronary artery of tribe heart without angina pectoris documented in this encounter Results * POCT lipid panel (08/14/2022 4:57 PM PUBLIC RELATIONS) Cholesterol, POC 175 mg/dL HDL, POC 62 mg/dL Triglycerides, POC 158 mg/dL LDL Cholesterol POC 81 mg/dL Chol/HDL Ratio, POC 1.3 Non-HDL Cholesterol, POC 113 mg/dL Cholesterol Total, POC 175 mg/dL Capillary blood 08/14/2022 4 :57 PM PUBLIC RELATIONS us Jose Reddy MD POINT OF CARE TEST ORDER ALFREDO Final Result documented in this encounter Visit Diagnoses Diagnosis Coronary artery disease involving tribe coronary artery of tribe heart without angina pectoris- Primary History of coronary artery stent placement documented in this encounter Discontinued Medications Medication Sig Discontinue Reason Start Date End Da te Nucynta ER 50 mg 12 hr tablet Take 50 mg by mouth every 12 (twelve) hours Discontinued by another clinician 07/19/2021 08/14/2022 documented as of this encounter Historical Medications * This list may reflect changes made after this encounter. vitamin B complex tablet extended release Take by mouth omega-3 fatty acids (LOVAZA) 1 gram capsule Take 1 capsule (1 g total) by mouth 2 (two) times a day 08/01/2022 ezetimibe (ZETIA) 10 mg tablet Take 1 tablet (10 mg total) by mouth daily 07/07/2022 topiramate (TOPAMAX) 50 mg tablet Take 1 tablet (50 mg total) by mouth nightly at bedtime 06/11/2022 added in this encounter Care Teams Reception Manager Relationship Specialty Start Date End Date Van Gonzales DO PCP - General Internal Medicine 07/19/19 03/04/23 documented as of this encounter
--- OUTSIDE RECORDS SUMMARY | 2024-10-07 01:43 | XMS_ITS | Encounter Summary ---
Author Organization [facility] Address [address] [address] Care Team Providers Care Drier Take Off Tender Name Role Phone Dion Greene MD Primary Care Provider [phone] Encounter Details Date Type Department Care Team (Late st Contact Info) Description 12/01/2017 Anticoagulation Visit [facility] [address] [address] Jose Reddy MD [address] [facility] [address] [place] [address] Social History Tobacco Use Types Packs/Day Years Used Date Smoking Tobacco: Former Alcohol Use Standard Drinks/Week Comments Yes 0 (1 standard drink = 0.6 oz pur e alcohol) Comments Unknown Sex and Gender Information Value Date Recorded Sex Assigned at Not on file 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
--- OUTSIDE RECORDS SUMMARY | 2024-10-07 01:43 | XMS_ITS | Encounter Summary ---
Author Organization [facility] Address [address] [facility] [address] [place] [address] Care Team Providers Care Horticultural Specialty Grower Inside Name Role Phone Evelio Wilson MD Primary Care Provider [phone] Reason for Visit * Diagnostic Imaging (Routine) - Closed Specialty Diagnoses / Procedures Referred By Contac t Referred To Contact Diagnoses History of coronary artery stent placement Procedures NM MPI SPECT (Rest and/or Stress) Multiple Studies Jose Reddy MD [address] [address] Phone: tel: fax: [facility] Referral ID Status Reason Start Date Expiration Date Visits Re quested Visits Authorized [id number] Closed 02/17/2023 03/18/2024 1 1 Encounter Details Date Type Department Care Team (Late st Contact Info) Description 04/16/2023 8:15 AM CDT Ancillary Procedure 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 Gender Identity Not on file Sexual Orientation Not on file documented as of this encounter Plan of Treatment Not on file documented as of this encounter Procedures Procedure Name Priority Date/Time Associated Diagnosis Comments NM MPI SPECT (REST AND/OR STRESS) MULTIPLE STUDIES Schedule Routine, Read Routine (OP Routine) 04/16/2023 10:03 AM CDT History of coronary artery stent placement documented in this encounter Visit Diagnoses Not on filedocumented in this encounter Administered Medications Inactive Administered Medications - up to 3 most recent administrations Medication Order MAR Action Action Date Dose Rate Site regadenoson (LEXISCAN) 0.4 mg/5 mL injection 0.4 mg 0.4 mg, intravenous, Once, On Urszula 04/16/23 at 1045, For 1 dose, Administer IV push over 10 seconds., Indications: Myocardial Perfusion Imaging AdjunctIndications:Myocard ial Perfusion Imaging Adjunct Given 04/16/2023 10:03 AM CDT 0.4 mg tc-99m sestamibi unit dose injection 10.3 millicurie 10.3 millicurie, intravenous, Once in imaging, radiopharmaceutical, Starting on Urszula 04/16/23 at 0847, For 1 dose, Indications: Diagnostic RadiographyIndications:Erinn gnostic Radiography Given 04/16/2023 8:48 AM CDT 10.3 millicuries tc-99m sestamibi unit dose injection 32.2 millicurie 32.2 millicurie, intravenous, Once in imaging, radiopharmaceutical, Starting on Urszula 04/16/23 at 1003, For 1 dose, Indications: Diagnostic RadiographyIndications:Erinn gnostic Radiography Given 04/16/2023 10:03 AM CDT 32.2 millicuries documented in this encounter Care Teams Horticultural Specialty Grower Inside Relationship Specialty Start Date End Date Evelio Wilson MD PCP - General Family Practice 03/05/23 documented as of this encounter
--- OUTSIDE RECORDS SUMMARY | 2024-10-07 01:43 | XMS_ITS | Encounter Summary ---
Author Organization [facility] Address [address] [facility] [address] [place] [address] Care Team Providers Care Screedman/Laborer Name Role Phone Van Gonzales DO Primary Care Provider [phone] Reason for Visit * Reason Comments Coronary Artery Disease 1 year f/u Encounter Details Date Type Department Care Team (Late st Contact Info) Description 09/04/2020 9:00 AM COLOR SEPARATION PHOTOGRAPHER Telemedicine [facility] Cardiology [address] [facility] [address] [place] [address] Jose Reddy MD [address] [facility] [address] [place] [address] Coronary artery disease involving deering coronary artery of deering heart without angina pectoris (Primary Dx); History of coronary artery stent placement Social History Tobacco Use Types Packs/Day Years Used Date Smoking Tobacco: Former Smokeless Tobacco: Never Alcohol Use Standard Drinks/Week Comments Yes 0 (1 standard drink = 0.6 oz pur e alcohol) Comments Unknown Sex and Gender Information Value Date Recorded Sex Assigned at Not on file Legal Sex Female 10:17 AM COLOR SEPARATION PHOTOGRAPHER Gender Identity Not on file Sexual Orientation Not on file documented as of this encounter Last Filed Vital Signs Vital Sign Reading Time Taken Comments Blood Pressure - - Pulse - - Temperature - - Respiratory Rate - - Oxygen Saturation - - Inhaled Oxygen Concentration - - Weight 78 kg (172 lb) 09/04/2020 8:57 AM COLOR SEPARATION PHOTOGRAPHER Height 172.7 cm (5' 8 ) 09/04/2020 8:57 AM COLOR SEPARATION PHOTOGRAPHER Body Mass Index 26.15 09/04/2020 8:57 AM COLOR SEPARATION PHOTOGRAPHER documented in this encounter Progress Notes * Jose Reddy MD - 09/04/2020 9:00 AM CST Images from the original note were not included. [facility] 09/04/2020 This was a telemedicine visit with Lisbet Alejandro alone which took place via Telephone. During the visit, I was located in the office and the patient was located at her home in the state [facility]. The patient visit started at 9:05 a.m. and ended at 9:15 a.m.. Total encounter time was 10 minutes, which includes time spent today on pre charting, the patient encounter, and post charting. The patient: has been informed that the visit may not be secure and acknowledged the information. The option of participating in a telephone or video visit during the [address] emergencywas explained to them. After being given an opportunity to ask questions about and discuss this type of visit, they verbally consented to proceeding with the telephone/video visit and understand thatthis service replaces an office visit. Jose Reddy MD Lisbet Alejandro is a 55 y.o. female who presents for follow up of coronary artery disease. This is a patient who presented in December of 2014 with acute inferior wall infarction. She underwent emergency right coronary intervention involving PTCA and stenting of the 2nd portion of the artery. She receiveda 3 x 23 mm L Jack drug-eluting stent with a nice anatomical result. Today's visit was a telephone telemedicine visit because of the pandemic in the patient's request not to come into the office. The she is doing extremely well and has not had any ischemic symptomatology since her PCI which was now done just over 5 years ago. She seems to have done quite well with adurable result from her RCA stent. She says she has been healthy and has not had any new health medical problems in the last year. She has not had virtual visits with her PCP as well so her lipids have not been checked in over a year now. REVIEW OF SYSTEMS General ROS: negative for [...] by mouth daily, Disp: 90 tablet, Rfl: 1 LABS AND OTHER DIAGNOSTIC TESTS No results found for: CHOL No results found for: HDL No results found for: LDLCALC No results found for: TRIG No results found for: CHOLHDL Lab Results Component Value Date HGB 11.2 (L) 09/06/2015 HCT 34.3 (L) 09/06/2015 MCV 97.6 09/06/2015 No lab exists for component: LABALBU PHYSICAL EXAM ASSESSMENT Lisbet was seen today for coronary artery disease. Diagnoses and all orders for this visit: Coronary artery disease involving deering coronary artery of deering heart without angina pectoris History of coronary artery stent placement PLAN/RECOMMENDATIONS Continue current medical regimen Request fasting lipid panel at the patient's convenience We will continue to see her at annual intervals or p.r.n. Jose Reddy MD R SEPARATION PHOTOGRAPHER documented in this encounter Plan of Treatment Scheduled Orders Name Type Priority Associated Diagnoses Orde r Schedule Lipid panel with direct LDL Lab Routine Coronary artery disease involving deering coronary artery of deering heart without angina pectoris 1 Occurrences starting 09/04/2020 until 09/04/2021 documented as of this encounter Visit Diagnoses Diagnosis Coronary artery disease involving deering coronary artery of deering heart without angina pectoris- Primary History of coronary artery stent placement documented in this encounter Discontinued Medications Medication Sig Discontinue Reason Start Date End Da te ALPRAZolam (XANAX) 0.25 mg tablet 1 tablet 3 (three) times a day as needed Therapy completed 01/03/2019 09/04/2020 FLUoxetine (PROzac) 20 mg capsule 1 capsule daily Therapy completed 06/29/2019 09/04/2020 documented as of this encounter Care Teams Screedman/Laborer Relationship Specialty Start Date End Date Van Gonzales DO PCP - General Internal Medicine 07/19/19 03/04/23 documented as of this encounter
--- OUTSIDE RECORDS SUMMARY | 2024-10-07 01:43 | XMS_ITS | Encounter Summary ---
Author Organization [facility] Address [address] [facility] [address] [place] [address] Care Team Providers Care Damper Fitter Name Role Phone Dion Greene MD Primary Care Provider [phone] Encounter Details Date Type Department Care Team (Late st Contact Info) Description 10/14/2018 Telephone [facility] [address] [address] Jose Reddy MD [address] [facility] [address] [place] [address] Social History Tobacco Use Types Packs/Day Years Used Date Smoking Tobacco: Former Smokeless Tobacco: Never Alcohol Use Standard Drinks/Week Comments Yes 0 (1 standard drink = 0.6 oz pur e alcohol) Comments Unknown Sex and Gender Information Value Date Recorded Sex Assigned at Not on file Legal Sex Female 10:17 AM MIDDLE SCHOOL SPORTS COACH Gender Identity Not on file Sexual Orientation Not on file documented as of this encounter Miscellaneous Notes * Telephone Encounter - Rosa River RN - 10/14/2018 2:48 PM MIDDLE SCHOOL SPORTS COACH Spoke with patient. States that she has been having burning and heaviness in her chest since last week. She went to the ER Thursday at where she had an EKG, CT of her chest, and lab work which all came back unremarkable. She was instructed to take ibuprofen for the discomfort which she tried but it did not seem to help much so she just continues to take her regular pain pills that seems to help m ore. The heaviness in the chest remains constant but the burning feeling is intermittent. The discomfort is no similar to what she had when she suffered her ID. Patient scheduled to see Dr. Alfonso 10/19/18. Encouraged patient to try taking an antacid to see if she gets some relief. Also discussed when it is appropriate to proceed to the ER. LE SCHOOL SPORTS COACH * Telephone Encounter - Milagro Dillard - 10/14/2018 1:55 PM MIDDLE SCHOOL SPORTS COACH Pt will like a call back regarding a burning pain in her chest, pt went to hospital to get CT with contrast. Pt will like a call back [phone] LE SCHOOL SPORTS COACH documented in this encounter Plan of Treatment Not on file documented as of this encounter Visit Diagnoses Not on filedocumented in this encounter Care Teams Damper Fitter Relationship Specialty Start Date End Date Dion Greene MD [address] [facility] [address] [place] [address] PCP - General 01/02/17 07/18/19 documented as of this encounter
--- OUTSIDE RECORDS SUMMARY | 2024-10-07 01:44 | XMS_ITS | Encounter Summary ---
Author Organization [facility] Care Team Providers Care Electrician Manager Name Role Phone Unavailable Primary Care Provider Unavailabl e Encounter Details Date Type Department Care Team (Late st Contact Info) Description 12/14/2009 - 12/14/2009 11:59 PM HOME AIDE Hospital Encounter [facility] Dion Paez MD [address] [facility] [address] [place] [phone] Generalized pain; Other allied disorders of spine Social History Tobacco Use Types Packs/Day Years Used Date Smoking Tobacco: Never Assessed Comments Unknown Sex and Gender Information Value Date Recorded Sex Assigned at Not on file Legal Sex Female 10:17 AM HOME AIDE Gender Identity Not on file Sexual Orientation Not on file documented as of this encounter Plan of Treatment Not on file documented as of this encounter Visit Diagnoses Diagnosis Generalized pain Other allied disorders of spine documented in this encounter
--- OUTSIDE RECORDS SUMMARY | 2024-10-07 01:44 | XMS_ITS | Encounter Summary ---
Author Organization [facility] Facility Care Team Providers Care Linux Systems Analyst Name Role Phone Dion Greene MD Primary Care Provider [phone] Encounter Details Date Type Department Care Team (Late st Contact Info) Description 08/10/2015 - 08/10/2015 11:59 PM 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 Hospital Encounter [facility] CLINCONaDny Acosta MD [address] [facility] [address] [place] [address] Social History Tobacco Use Types Packs/Day Years Used Date Smoking Tobacco: Former Alcohol Use Standard Drinks/Week Comments Yes 0 (1 standard drink = 0.6 oz pur e alcohol) Comments Unknown Sex and Gender Information Value Date Recorded Sex Assigned at Not on file Legal Sex Female 10:17 AM 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 Gender Identity Not on file Sexual [...] Procedure Name Priority Date/Time Associated Diagnosis Comments OUTSIDE NEURO CT MR REFERENCE Routine 08/10/2015 4:28 PM 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 XR CONSULT OF OUTSIDE FILMS (PEDS ONLY) Routine 08/10/2015 11:52 AM 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 documented in this encounter Results * OUTSIDE NEURO CT MR REFERENCE (08/10/2015 4:28 PM 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) Anatomical Region Laterality Modality N/A Computed Tomogra phy 08/10/2015 4:28 PM 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 Narrative 08/10/2015 5:13 PM 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 OUTSIDE IMAGES SUPERVISOR FINISHING DEPARTMENT, FINAL REPORT ACC# ??Date Time ??Exam [id number] Aug 10, 2015 16:28:00 [id number] [facility] Neuro Reference EXAMINATION: ?Images For Reference Purposes Only IMPRESSION: ?These images have been uploaded for Reference purposes only. ??There will be no separate report generated by a [facility] Radiologist. Requested By: Dictated By: ?? OUTSIDE IMAGES SUPERVISOR FINISHING DEPARTMENT, ?? on Aug ??2014 ??5:13P This document has been electronically signed by: OUTSIDE IMAGES SUPERVISOR FINISHING DEPARTMENT, ??on Aug ??2014 ??5:13P [id number] Procedure Note Provider, Reyna, - 01/30/2017 OUTSIDE IMAGES SUPERVISOR FINISHING DEPARTMENT, FINAL REPORT ACC# Date Time Exam [id number] Aug 10, 2015 16:28:00 [id number] [facility] Neuro Reference EXAMINATION: Images For Reference Purposes Only IMPRESSION: These images have been uploaded for Reference purposes only. There will be no separate report generated by a [facility] Radiologist. Requested By: Dictated By: OUTSIDE IMAGES SUPERVISOR FINISHING DEPARTMENT, on Aug 10 2015 5:13P This document has been electronically signed by: OUTSIDE IMAGES SUPERVISOR FINISHING DEPARTMENT, on Aug 10 2015 5:13P [id number] us Historical Provider MD FINE CT PROCEDURES Final R esult * XR Interpretation Of Outside Films (08/10/2015 11:52 AM 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) Anatomical Region Laterality Modality N/A Radiographic Drea ging 08/10/2015 11:5 2 AM 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 Narrative 08/10/2015 4:59 PM 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 SHAHID FOOTE M.D. NILDA SCHNEIDER M.D. FINAL REPORT The radiology attending physician has personally reviewed this study, and has reviewed and/or edited this written report and agrees with it. ACC# ??Date Time ??Exam [id number] Aug 10, 2015 11:52:00 [id number] [facility] Neuro Consult EXAMINATION: ?? RADIOLOGY CONSULTATION ON OUTSIDE IMAGING STUDY STUDY INITIALLY PERFORMED: 06/18/2015 at [facility]. TYPE OF STUDY: Multiple CT images of the neck with intravenous contrast are provided at the time of this interpretation. The protocol was adequate to address the clinical question. The outside final report was available at the time of this second opinion interpretation. TYPE OF CONSULTATION: Consult on outside imaging study with images submitted through [facility]. DATE OF CONSULTATION: 08/10/2015. HISTORY: 50-year-old female with history of left neck mass status post incision and drainage. COMPARISON: No prior imaging is available at the time of dictation. FINDINGS: A heterogeneous and partially necrotic left level 2A lymph node measures 2.3 x 1.6 by 3.2 cm (AP x TV x CC). Overlying this lymph node is a track from the prior incision and drainage. No other abnormal soft tissue mass is identified. Several other scattered bilateral cervical lymph nodes are not abnormally appearing or enlarged. The nasopharynx appears normal. There is motion artifact obscuring evaluation of the nicole- and hypopharynx. The proximal trachea is widely patent. The parotid and submandibular glands appear normal. The thyroid gland appears normal. Within the partially imaged upper thorax is some scarring within the right lung apex, as well as minor paraseptal emphysema. IMPRESSION: ?? Partially necrotic 3.2 cm left level 2A lymph node, favored to represent neoplasm rather than infection. No other abnormal soft tissue mass identified. The findings, conclusions and recommendations within this report do not replace the initial findings, conclusions ??and recommendations made at the facility where the study was performed based upon the imaging and clinical condition at that time. ??Comparison with the prior report and clinical history is necessary. ??The provided images may or may not represent the [place] source data set and thus may contain changes that may lower the accuracy of this second-opinion interpretation. Requested By: Dictated By: ?? NILDA SCHNEIDER M.D. ??on Aug ??2014 ??1:36P This document has been electronically signed by: SHAHID FOOTE M.D. on Aug ??2014 ??4:59P [id number] Procedure Note Provider, MD Reyna - 01/30/2017 SHAHID FOOTE M.D. NILDA SCHNEIDER M.D. FINAL REPORT The radiology attending physician has personally reviewed this study, and has reviewed and/or edited this written report and agrees with it. ACC# Date Time Exam [id number] Aug 10, 2015 11:52:00 [id number] [facility] Neuro Consult EXAMINATION: RADIOLOGY CONSULTATION ON OUTSIDE IMAGING STUDY STUDY INITIALLY PERFORMED: 06/18/2015 at [facility]. TYPE OF STUDY: Multiple CT images of the neck with intravenous contrast are provided at the time of this interpretation. The protocol was adequate to address the clinical question. The outside final report was available at the time of this second opinion interpretation. TYPE OF CONSULTATION: Consult on outside imaging study with images submitted through [facility]. DATE OF CONSULTATION: 08/10/2015. HISTORY: 50-year-old female with history of left neck mass status post incision and drainage. COMPARISON: No prior imaging is available at the time of dictation. FINDINGS: A heterogeneous and partially necrotic left level 2A lymph node measures 2.3 x 1.6 by 3.2 cm (AP x TV x CC). Overlying this lymph node is a track from the prior incision and drainage. No other abnormal soft tissue mass is identified. Several other scattered bilateral cervical lymph nodes are not abnormally appearing or enlarged. The nasopharynx appears normal. There is motion artifact obscuring evaluation of the nicole- and hypopharynx. The proximal trachea is widely patent. The parotid and submandibular glands appear normal. The thyroid gland appears normal. Within the partially imaged upper thorax is some scarring within the right lung apex, as well as minor paraseptal emphysema. IMPRESSION: Partially necrotic 3.2 cm left level 2A lymph node, favored to represent neoplasm rather than infection. No other abnormal soft tissue mass identified. The findings, conclusions and recommendations within this report do not replace the initial findings, conclusions and recommendations made at the facility where the study was performed based upon the imaging and clinical condition at that time. Comparison with the prior report and clinical history is necessary. The provided images may or may not represent the [place] source data set and thus may contain changes that may lower the accuracy of this second-opinion interpretation. Requested By: Dictated By: NILDA SCHNEIDER M.D. on Aug 10 2015 1:36P This document has been electronically signed by: SHAHID FOOTE M.D. on Aug 10 2015 4:59P [id number] us Historical Provider MD FINE XR PROCEDURES Final R esult documented in this encounter Visit Diagnoses Not on filedocumented in this encounter Care Teams Linux Systems Analyst Relationship Specialty Start Date End Date Dion Greene MD [address] [facility] [address] [place] [address] PCP - General 06/29/15 01/01/17 documented as of this encounter
--- OUTSIDE RECORDS SUMMARY | 2024-10-07 01:44 | XMS_ITS | Encounter Summary ---
Author Organization [facility] Facility Care Team Providers Care Physicist Solid State Name Role Phone Unavailable Primary Care Provider Unavailabl e Encounter Details Date Type Department Care Team (Late st Contact Info) Description 12/12/2009 - 12/12/2009 11:59 PM AUDIO VISUAL EQUIPMENT RENTAL CLERK Hospital Encounter [facility] Dion Paez MD [address] [facility] [address] [place] [id number] Other and unspecified hyperlipidemia; Encounter for long-term (current) use of other medications Social History Tobacco Use Types Packs/Day Years Used Date Smoking Tobacco: Never Assessed Comments Unknown Sex and Gender Information Value Date Recorded Sex Assigned at Not on file Legal Sex Female 10:17 AM AUDIO VISUAL EQUIPMENT RENTAL CLERK Gender Identity Not on file Sexual Orientation Not on file documented as of this encounter Plan of Treatment Not on file documented as of this encounter Visit Diagnoses Diagnosis Other and unspecified hyperlipidemia Encounter for long-term (current) use of other medications documented in this encounter
--- OUTSIDE RECORDS SUMMARY | 2024-10-07 01:44 | XMS_ITS | Encounter Summary ---
Author Organization [facility] Facility Care Team Providers Care Train Brake Operator Name Role Phone Unavailable Primary Care Provider Unavailabl e Encounter Details Date Type Department Care Team (Late st Contact Info) Description 06/20/2009 - 10/04/2009 11:59 PM GRIDDLE COOK Hospital Encounter [facility] Social History Tobacco Use Types Packs/Day Years Used Date Smoking Tobacco: Never Assessed Comments Unknown Sex and Gender Information Value Date Recorded Sex Assigned at Not on file Legal Sex Female 10:17 AM GRIDDLE COOK Gender Identity Not on file Sexual Orientation Not on file documented as of this encounter Plan of Treatment Not on file documented as of this encounter Visit Diagnoses Not on filedocumented in this encounter
--- OUTSIDE RECORDS SUMMARY | 2024-10-07 01:44 | XMS_ITS | Encounter Summary ---
Author Organization [facility] Facility Care Team Providers Care Food Aide Name Role Phone Unavailable Primary Care Provider Unavailabl e Encounter Details Date Type Department Care Team (Late st Contact Info) Description 03/29/2012 - 03/29/2012 11:59 PM CDT Hospital Encounter [facility] Dion Paez MD [address] [facility] [address] [place] [phone] Nontoxic uninodular goiter Social History Tobacco Use Types Packs/Day Years Used Date Smoking Tobacco: Never Assessed Comments Unknown Sex and Gender Information Value Date Recorded Sex Assigned at Not on file Legal Sex Female 10:17 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
--- OUTSIDE RECORDS SUMMARY | 2024-10-07 01:44 | XMS_ITS | Encounter Summary ---
Author Organization [facility] Healthcare Address [address] [place] [address] Care Team Providers Care Product Lister Name Role Phone Unavailable Primary Care Provider Unavailabl e Encounter Details Date Type Department Care Team ([facility] st Contact Info) Description 04/08/2012 10:16 AM CDT - 04/08/2012 11:59 PM CDT Hospital Encounter [facility] Nitin, Yousif Ch MD [address] [place] [address] Other screening mammogram; Menopausal and postmenopausal disorder; Disorder of bone and cartilage Social History Tobacco Use Types Packs/Day Years Used Date Smoking Tobacco: Never Assessed Comments Unknown Sex and Gender Information Value Date Recorded Sex Assigned at Not on file Legal Sex Female 10:17 AM 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
== END 2024-09-30 12:20 | disposition home or self-care (01) ==
PROVIDERS: PCP Family Medicine; Visit Provider Internal Medicine
PROC: 4A023N7 Measurement of Cardiac Sampling and Pressure, Left Heart, Percutaneous Approach (ICD-10-PCS; CPT 93452; principal; 2024-09-30 08:30)
DX: I25.10 Atherosclerotic heart disease of native coronary artery without angina pectoris (principal); M81.0 Age-related osteoporosis without current pathological fracture; F41.9 Anxiety disorder, unspecified; E78.00 Pure hypercholesterolemia, unspecified; M17.0 Bilateral primary osteoarthritis of knee; G47.33 Obstructive sleep apnea (adult) (pediatric); I25.2 Old myocardial infarction; G47.10 Hypersomnia, unspecified; Z79.82 Long term (current) use of aspirin; Z79.891 Long term (current) use of opiate analgesic; Z79.899 Other long term (current) drug therapy; Z98.890 Other specified postprocedural states; Z95.5 Presence of coronary angioplasty implant and graft; Z87.891 Personal history of nicotine dependence; Z80.0 Family history of malignant neoplasm of digestive organs; Z80.1 Family history of malignant neoplasm of trachea, bronchus and lung; Z82.49 Family history of ischemic heart disease and other diseases of the circulatory system
CPT/HCPCS: 36415; 80048; 85025; 93458; C1769; C1887; C1894; J1644; J2003; J2250; J2305; J3010; J7040

== ENCOUNTER 2025-02-15 10:38 | Outpatient (CLI) | payer OTHER, SELFPAY ==
--- NOTE | ~2025-02-15 | MM_ITS ---
EXAMINATION: MM screening khoa BI w irais HISTORY: Screening TECHNIQUE: Craniocaudal and mediolateral oblique 3-D tomosynthesis images were obtained and synthetic 2-D images were generated. CAD analysis was submitted and interpreted. COMPARISON: Comparison to multiple prior studies sequentially, with oldest reviewed study dated 12/2015. BREAST PARENCHYMAL COMPOSITION: Dense: The breasts are heterogeneously dense, which may obscure small masses FINDINGS: There is no evidence of suspicious mass, calcification, or architectural distortion to sugg est malignancy in either breast. There has been no suspicious interval change. IMPRESSION: 1. No mammographic evidence of malignancy. 2. Recommend routine screening mammography in one year. BI-RADS Category 1: Negative Reviewed, dictated and finalized at location A.
== END 2025-02-15 10:39 | disposition home or self-care (01) ==
PROVIDERS: PCP Family Medicine; Visit Provider Obstetrics & Gynecology
DX: Z12.31 Encounter for screening mammogram for malignant neoplasm of breast (principal)
CPT/HCPCS: 77063; 77067

== ENCOUNTER 2025-05-29 08:06 | Outpatient (CLI) | payer OTHER, SELFPAY ==
--- NOTE | ~2025-05-29 | DEXA_ITS ---
Bone Density Report Name: EBER INMAN Age: 60 Sex: Female Ethnicity: White Date of : 1965 Indication: postmenopausal; screening for osteoporosis; Referring Provider: MELISSA BONILLA Study: Bone densitometry was performed. Exam Date: May 29, 2025 Accession number: [id number] Bone Density: Region BMD T-score Z-score Classification AP Spine(L1-L4) 0.788 -2.4 -0.8 Osteopenia Femoral Neck (Left) 0.688 -1.4 -0.1 Osteopenia Total Hip (Left) 0.827 -0.9 0.1 Normal Femoral Neck (Right) 0.664 -1.7 -0.3 Osteopenia Total Hip (Right) 0.781 -1.3 -0.3 Osteopenia Total Hip Mean 0.804 -1.1 -0.1 Osteopenia World Health Organization criteria for BMD impression classify patients as: Normal (T-score at or above -1.0), Osteopenia (T-score between -1.0 and -2.5), or Osteoporosis (T-score at or below -2.5). 10-year Fracture Risk(1): Major Osteoporotic Fracture 8.8% Hip Fracture 0.9% Reported Risk Factors: [place] (), Neck BMD=0.664, BMI=26.3 (1) FRAX(R) Version 3.08. Fracture probability calculated for an untreated patient. Fracture probability may be lower if the patient has received treatment. Clinical Information Provided by Patient: Has used the following medications: Vitamin D, Calcium Patient maximum height was 68 Menopause Age: 46 Drinks caffeinated beverages Onset of menses at age 10 Number of children 1 Impression: The patient has low bone mass, based on the Total Spine T-score. The patient has an estimated ten-year risk of hip fracture of 0.9% and an estimated ten-year risk of major fracture of 8.8%, based on the WHO FRAX algorithm. Discussion: BONE DENSITY IS LOW AT ONE OR MORE SKELETAL SITES. This patient's lowest T-score is low at one or more skeletal sites. It meets the World Health Organization's (WHO) criteria for ?low bone mass? (T-score between -1.0 and -2.5). The patient's 10-year risk of fracture as calculated by FRAX is less than the threshold where pharmacological therapy is recommended by the National Osteoporosis Foundation (NOF). However, all treatment decisions require clinical judgment and consideration of individual patient factors, including patient preferences, comorbidities, previous drug use, risk factors not captured in the FRAX model (e.g., frailty, falls, vitamin D deficiency, increased bone turnover, interval significant decline in bone density) and possible under or overestimation of fracture risk by FRAX. The patient should follow a healthful lifestyle (good nutrition with adequate calcium and vitamin D, and appropriate weight-bearing exercise). Follow-Up: Consider repeating this study in 2 to 3 years to reassess this patient's status, or sooner if there is some new clinical indication. Reported by: MARIA A on 05/29/2025 8:43:00 AM. Reviewed, dictated and finalized at location A.
== END 2025-05-29 08:07 | disposition home or self-care (01) ==
LOC: MICIMG 08:09
PROVIDERS: PCP Family Medicine; Visit Provider Family Medicine
DX: M85.89 Other specified disorders of bone density and structure, multiple sites (principal); Z78.0 Asymptomatic menopausal state
CPT/HCPCS: 77080